=== PATIENT | female | born 1995 | race Caucasian/White ===

== ENCOUNTER 2016-08-29 09:31 | Emergency (ER) | payer MEDICAID ==
[2016-08-29 09:56] VITALS: BP 99/56
--- NOTE | 2016-08-29 10:57 | ER Document Report ---
[id number] Mode of Arrival: Ambulatory Information source: Patient Notes: 20-year-old female presents with complaints of a sore throat of one day duration. Patient denies any fevers chills nausea vomiting or diarrhea Patient states she gets strep at least 3 times a year TRAVEL OUTSIDE OF THE [place].S[place] IN LAST 30 DAYS: No - HPI Onset: Yesterday Onset/Duration: Sudden Quality of pain: Sharp Severity: Mild Pain Level: 1 Associated symptoms: Sore throat Exacerbated by: Denies Relieved by: Denies Similar symptoms previously: Yes Recently seen / treated by doctor: Yes - Related Data Allergies/Adverse Reactions: No Known Allergies Allergy (Verified 08/29/16 09:52) Past Medical History - Social History Smoking Status: Never Smoker Cigarette use (# per day): No Chew tobacco use (# tins/day): No Smoking Education Provided: No Frequency of alcohol use: None Drug Abuse: None Family History: Reviewed & Not Pertinent Patient has suicidal ideation: No Patient has homicidal ideation: No Renal/ Medical History: Reports: Hx Ovarian Cysts Past Surgical History: Reports: Hx Oral Surgery - ear surg x3, wisdom teeth - Immunizations Hx Diphtheria, Pertussis, Tetanus Vaccination: Yes Review of Systems - Review of Systems Notes: REVIEW OF SYSTEMS: CONSTITUTIONAL : Denies fever, chills, or sweats. Denies recent illness. EENT: Admits to sore throat CARDIOVASCULAR: Denies chest pain. Denies palpitations or racing or irregular heart beat. Denies ankle edema. RESPIRATORY: Denies cough, cold, or chest congestion. Denies shortness of breath, difficulty breathing, or wheezing. GASTROINTESTINAL: Denies abdominal pain or distention. Denies nausea, vomiting , or diarrhea. Denies blood in vomitus, stools, or per rectum. Denies black, tarry stools. Denies constipation. GENITOURINARY: Denies difficulty urinating, painful urination, burning, frequency, blood in urine, or discharge. FEMALE GENITOURINARY: Denies vaginal bleeding, heavy or abnormal periods, irregular periods. Denies vaginal discharge or odor. MUSCULOSKELETAL: Denies back or neck pain or stiffness. Denies joint pain or swelling. SKIN: Denies rash, lesions or sores. HEMATOLOGIC : Denies easy bruising or bleeding. LYMPHATIC: Denies swollen, enlarged glands. NEUROLOGICAL: Denies confusion or altered mental status. Denies passing out or loss of consciousness. Denies dizziness or lightheadedness. Denies headache. Denies weakness or paralysis or loss of use of either side. Denies problems with gait or speech. Denies sensory loss, numbness, or tingling. Denies seizures. PSYCHIATRIC: Denies anxiety or stress. Denies depression, suicidal ideation, or homicidal ideation. ALL OTHER SYSTEMS REVIEWED AND NEGATIVE. Dictation was performed using [employer] voice recognition software PHYSICAL EXAMINATION: GENERAL: Well-appearing, well-nourished and in no acute distress. HEAD: Atraumatic, normocephalic. EYES: Pupils equal round and reactive to light, extraocular movements intact, conjunctiva are normal. ENT: Right tonsil +1 with ulcers left tonsil +1 with erythema NECK: Normal range of motion, supple without lymphadenopathy LUNGS: Breath sounds clear to auscultation bilaterally and equal. No wheezes rales or rhonchi. HEART: Regular rate and rhythm without murmurs ABDOMEN: Soft, nontender, nondistended abdomen. No guarding, no rebound. No masses appreciated. Female : deferred Musculoskeletal: Normal range of motion, no pitting or edema. No cyanosis. NEUROLOGICAL: Cranial nerves grossly intact. Normal speech, normal gait. Normal sensory, motor exams PSYCH: Normal mood, normal affect. SKIN: Warm, Dry, normal turgor, no rashes or lesions noted. Physical Exam - Vital signs Vitals: Temp Pulse Resp BP 97.9 F 116 H 14 99/56 L 08/29/16 09:51 08/29/16 09:51 08/29/16 09:51 08/29/16 09:51 Course - Re-evaluation Re-evalutation: 08/29/16 15:22 Given the patient's airways patent she is otherwise stable for discharge. Rapid strep was negative. Patient has been given a sheet with ENT follow-up at [facility] for further evaluation and care After performing a Medical Screening Examination, I estimate there is LOW risk for CENTRAL CORD SYNDROME, EPIDURAL MASS LESION, SEVERE SPINAL STENOSIS, ARTERIAL DISSECTION, MENINGITIS, or ACUTE CORONARY SYNDROME, thus I consider the discharge disposition reasonable. The patient and I have discussed the diagnosis and risks, and we agree with discharging home to follow-up on an outpatient basis with the understanding that symptoms and presentations can change. We also discussed returning to the Emergency Department immediately if new or worsening symptoms occur. We have discussed the symptoms which are most concerning (e.g., saddle anesthesia, urinary or bowel incontinence or retention , changing or worsening pain) that necessitate immediate return. - Vital Signs Vital signs: Temp Pulse Resp BP Pulse Ox 97.9 F 116 H 16 99/56 L 08/29/16 09:51 08/29/16 09:51 08/29/16 10:06 08/29/16 09:51 Discharge - Discharge Clinical Impression: Sore throat Condition: Stable Disposition: HOME, SELF-CARE Instructions: Sore Throat ([facility]) Additional Instructions: Follow up with your physician tomorrow for further care or return to the ED IMMEDIATELY if symptoms worsen or new concerns occur
== END 2016-08-29 11:36 | disposition home or self-care (01) ==
LOC: ER 09:31
DX: J02.9 Acute pharyngitis, unspecified (principal)
CPT/HCPCS: 87070; 87880; 99283

== ENCOUNTER 2016-10-22 01:26 | Emergency (ER) | payer MEDICAID ==
[2016-10-22 01:33] VITALS: BP 116/62
[2016-10-22] MEDS ORDERED: DIAZEPAM INJ 10 MG/2 ML DISP.SYRIN IM ONE (02:34)
--- NOTE | 2016-10-22 02:47 | ER Document Report ---
ED Neck/Back Problem - General Chief Complaint: Neck Pain < 24hrs old Stated Complaint: NECK PAIN Time seen by provider: 02:45 Mode of Arrival: Ambulatory Information source: Patient TRAVEL OUTSIDE OF THE [place].S. IN LAST 30 DAYS: No - HPI Patient complains to provider of: Pain, Neck Onset: Other - Saturday Where: Home Onset: Gradual Timing: Worse Quality of pain: Achy Severity: Moderate Pain Level: 4 Recent injury: No Exacerbated by: Movement of neck Relieved by: Nothing Similar symptoms previously: No Recently seen / treated by doctor: Yes Notes: Patient is a 20-year-old female who is approximately 25 weeks presents to the emergency room complaining of neck pain that's been going on for the past 2-3 days, states she woke up Saturday morning with some tension in her neck, symptoms have worsened since then, her spouse attempted to massage her neck but that seemed to make her symptoms worse, she was tried taking Tylenol as well as Vistaril at home which has not helped either, she states it feels like a pulled muscle, she denies any injury or trauma, no fevers, no nausea or vomiting - Related Data Allergies/Adverse Reactions: No Known Allergies Allergy (Verified 10/22/16 01:31) Past Medical History - General Information source: Patient - Social History Smoking Status: Never Smoker Chew tobacco use (# tins/day): No Frequency of alcohol use: None Drug Abuse: None Family History: Reviewed & Not Pertinent Patient has suicidal ideation: No Patient has homicidal ideation: No Renal/ Medical History: Reports: Hx Ovarian Cysts. Denies: Hx Peritoneal Dialysis Past Surgical History: Reports: Hx Oral Surgery - ear surg x3, wisdom teeth - Immunizations Hx Diphtheria, Pertussis, Tetanus Vaccination: Yes Review of Systems - Review of Systems Constitutional: No symptoms reported EENT: No symptoms reported Cardiovascular: No symptoms reported Respiratory: No symptoms reported Gastrointestinal: No symptoms reported Genitourinary: No symptoms reported Female Genitourinary: No symptoms reported Musculoskeletal: Neck pain Skin: No symptoms reported Hematologic/Lymphatic: No symptoms reported Neurological/Psychological: No symptoms reported -: Yes All other systems reviewed and negative Physical Exam - Vital signs Vitals: Temp Pulse Resp BP Pulse Ox 97.5 F 95 16 116/62 98 10/22/16 01:29 10/22/16 01:29 10/22/16 01:29 10/22/16 01:10/22/16 01:29 Interpretation: Normal - General General appearance: Appears well, Alert - HEENT Head: Normocephalic, Atraumatic Eyes: Normal Conjunctiva: Normal Extraocular movements intact: Yes Eyelashes: Normal Pupils: PERRL Neck: Other - Bilateral sternocleidomastoids are tight, tense, tender to palpate , there is limited range of motion of the cervical spine, there is no midline tenderness, no step-off or deformity - Respiratory Respiratory status: No respiratory distress Chest status: Nontender Breath sounds: Normal Chest palpation: Normal - Cardiovascular Rhythm: Regular Heart sounds: Normal auscultation Murmur: No - Abdominal Inspection: Normal Distension: No distension Bowel sounds: Normal Tenderness: Nontender Organomegaly: No organomegaly - Back Back: Normal, Nontender - Extremities General upper extremity: Normal inspection, Nontender, Normal color, Normal ROM , Normal temperature General lower extremity: Normal inspection, Nontender, Normal color, Normal ROM , Normal temperature, Normal weight bearing. No: Perlita's sign - Neurological Neuro grossly intact: Yes Cognition: Normal Orientation: AAOx4 Gloria Coma Scale Eye Opening: Spontaneous Gloria Coma Scale Verbal: Oriented Gloria Coma Scale Motor: Obeys Commands Ocate Coma Scale Total: 15 Speech: Normal Motor strength normal: LUE, RUE, LLE, RLE Sensory: Normal - Psychological Associated symptoms: Normal affect, Normal mood - Skin Skin Temperature: Warm Skin Moisture: Dry Skin Color: Normal Course - Re-evaluation Re-evalutation: 10/22/16 05:39 Patient symptoms consistent with cervical muscle strain, she was given several prescriptions for medications for treatment of this, advised to follow-up with her [employer] or return if symptoms worsen, patient acknowledges understanding and agreement with this plan - Vital Signs Vital signs: Temp Pulse Resp BP Pulse Ox 97.5 F 95 16 116/62 98 10/22/16 01:29 10/22/16 01:29 10/22/16 01:29 10/22/16 01:29 10/22/16 01:29 Discharge - Discharge Clinical Impression: Cervical strain, acute Qualifiers: Encounter type: initial encounter Qualified Code(s): S16.1XXA - Strain of muscle, fascia and tendon at neck level, initial encounter Condition: Stable Disposition: HOME, SELF-CARE Instructions: Soft Cervical Collar ([facility]), Neck Injury (Cervical Strain) ([facility]) Additional Instructions: Follow up with your primary care provider in 2-3 days. Warm compresses and gentle massage with gentle stretching. Return to the ER immediately if symptoms worsen or any additional concerns. Prescriptions: Diazepam [Valium 5 mg Tablet] 5 mg PO QIDP PRN #15 tablet PRN Reason: Hydrocodone/Acetaminophen [Hydrocodon-Acetaminophen 5-325] 1 each PO Q6 #20 tablet
[2016-10-22] MEDS ORDERED: HYDROCODONE/ACETAMINOPHEN 5-325 MG 6 TAB/DSPK PO PRN (03:16)
== END 2016-10-22 03:26 | disposition home or self-care (01) ==
LOC: ER 01:26
DX: S16.1XXA Strain of muscle, fascia and tendon at neck level, initial encounter (principal); M54.2 Cervicalgia; Z3A.25 25 weeks gestation of pregnancy; X58.XXXA Exposure to other specified factors, initial encounter
CPT/HCPCS: 99283; 96372; J3360

== ENCOUNTER 2016-11-01 13:56 | Emergency (ER) | payer MEDICAID ==
--- NOTE | 2016-11-01 14:18 | ER Document Report ---
ED Medical Screen (RME) - General Stated Complaint: URINARY PROBLEM Notes: LMP: Apr 30, 2017, due date February 05 P/w "bump on pubic bone" that she noticed last evening. also admit to hematuria that started this am Admits to fleeting pelvic pain on the right side, lasting less then 5 seconds, stabbing. Has had a US to confirm IUP I have greeted and performed a rapid initial assessment of this patient. A comprehensive ED assessment and evaluation of the patient, analysis of test results and completion of the medical decision making process will be conducted by additional ED providers. TRAVEL OUTSIDE OF THE [place].S. IN LAST 30 DAYS: No - Related Data Allergies/Adverse Reactions: No Known Allergies Allergy (Verified 11/01/16 14:14) Past Medical History Renal/ Medical History: Reports: Hx Ovarian Cysts. Denies: Hx Peritoneal Dialysis Past Surgical History: Reports: Hx Oral Surgery - ear surg x3, wisdom teeth - Immunizations Hx Diphtheria, Pertussis, Tetanus Vaccination: Yes Physical Exam - Vital signs Vitals: Temp Pulse Resp BP Pulse Ox 98.2 F 102 H 17 120/71 99 11/01/16 14:13 11/01/16 14:13 11/01/16 14:13 11/01/16 14:13 11/01/16 14:13 Course - Vital Signs Vital signs: Temp Pulse Resp BP Pulse Ox 98.2 F 102 H 17 120/71 99 11/01/16 14:13 11/01/16 14:13 11/01/16 14:13 11/01/16 14:13 11/01/16 14:13
[2016-11-01 14:57] LABS: AMORPHOUS SEDIMENT,URINE 1+ /HPF; APPEARANCE,URINE TURBID; BILIRUBIN,URINE NEGATIVE (NEGATIVE); GLUCOSE, URINE NEGATIVE (NEGATIVE); KETONES,URINE NEGATIVE (NEGATIVE); LEUKOCYTE ESTERASE,URINE SMALL (NEGATIVE); NITRITE,URINE NEGATIVE (NEGATIVE); PROTEIN,URINE NEGATIVE (NEGATIVE); UROBILINOGEN,URINE NEGATIVE mg/dL (<2.0)
--- NOTE | 2016-11-01 15:25 | ER Document Report ---
ED General - General Chief Complaint: Urinary Problem Stated Complaint: URINARY PROBLEM Mode of Arrival: Ambulatory Information source: Patient Notes: Patient presents to the emergency department with complaints of noting blood when she voided today. She also reports she has a bump on her pelvic area that she noted last night. She reports she shaved herself several days ago. She denies other symptoms like chest pain, fever vomiting diarrhea. Patient is approximately 26 weeks . She denies abdominal pain. She denies pain with void, denies vaginal bleeding. She denies vaginal discharge. TRAVEL OUTSIDE OF THE [place] IN LAST 30 DAYS: No - HPI Onset: This morning Onset/Duration: Sudden Quality of pain: Other - sore Severity: Severe Pain Level: 4 - pelvic bump Associated symptoms: None Exacerbated by: Denies Relieved by: Denies Similar symptoms previously: No Recently seen / treated by doctor: No - Related Data Allergies/Adverse Reactions: No Known Allergies Allergy (Verified 11/01/16 14:14) Past Medical History - General Information source: Patient Last Menstrual Period: 26 weeks - Social History Smoking Status: Never Smoker Chew tobacco use (# tins/day): No Frequency of alcohol use: None Drug Abuse: None Occupation: [employer] Family History: Reviewed & Not Pertinent Patient has suicidal ideation: No Patient has homicidal ideation: No Renal/ Medical History: Reports: Hx Ovarian Cysts. Denies: Hx Peritoneal Dialysis Past Surgical History: Reports: Hx Oral Surgery - ear surg x3, wisdom teeth - Immunizations Hx Diphtheria, Pertussis, Tetanus Vaccination: Yes Review of Systems - Review of Systems Notes: Review HPI for review of systems., All other systems negative Physical Exam - Vital signs Vitals: Temp Pulse Resp BP Pulse Ox 98.2 F 102 H 17 120/71 99 11/01/16 14:13 11/01/16 14:13 11/01/16 14:13 11/01/16 14:13 11/01/16 14:13 - Notes Notes: PHYSICAL EXAMINATION: GENERAL: Well-appearing and in no acute distress nontoxic looking, smiles easily HEAD: Atraumatic, normocephalic. EYES: Pupils equal round extraocular movements intact, sclera anicteric, conjunctiva are normal. ENT: nares patent, . Moist mucous membranes. NECK: Normal range of motion, supple without lymphadenopathy LUNGS: CTAB and equal. No wheezes rales or rhonchi. HEART: Regular rate and rhythm without murmurs ABDOMEN: gravid female, Soft, no tenderness. No guarding, no rebound EXTREMITIES: Normal range of motion, no pitting edema. No cyanosis. NEUROLOGICAL: Cranial nerves grossly intact. Normal sensory/motor . PSYCH: Normal mood, normal affect. SKIN: Warm, Dry, normal turgor, no rashes or lesions noted - Genitourinary External exam: Normal Female anatomy: 1 - small erythemic soft swelling, no pustule, no induration, no open wounds Course - Re-evaluation Re-evalutation: 11/01/16 16:40 Patient was instructed on care of folliculitis with Bactroban and warm packs. Patient was also instructed on importance of follow-up with her [employer] for urine recheck next week. She verbalized understanding. - Vital Signs Vital signs: Temp Pulse Resp BP Pulse Ox 98.2 F 102 H 17 120/71 99 11/01/16 14:13 11/01/16 14:13 11/01/16 14:13 11/01/16 14:13 11/01/16 14:13 - Laboratory Laboratory results interpreted by me: 11/01/16 11/01/16 14:25 14:25 Beta HCG, Quant 3964.60 H Urine Blood SMALL H Ur Leukocyte Esterase SMALL H Discharge - Discharge Clinical Impression: Folliculitis Qualifiers: Weeks of gestation: less than 8 weeks Qualified Code(s): Z3A.01 - Less than 8 weeks gestation of UTI (urinary tract infection) Qualifiers: Urinary tract infection type: site unspecified Hematuria presence: with hematuria Qualified Code(s): N39.0 - Urinary tract infection, site not specified Condition: Stable Disposition: HOME, SELF-CARE Instructions: Cephalexin ([facility]), Urinary Tract Infection ([facility]), Folliculitis ( [facility]), Bactroban Ointment ([facility]) Additional Instructions: *You have been evaluated for hematuria, UTI folliculitis *Apply warm packs to the Monitor the site for increasing swelling, redness, pustule, apply bactroban to the area twice a day *Take medication as prescribed *Push fluids *Follow up with your primary care provider within one week for recheck *Plan urine recheck in one week *Return to ED for worsening condition, changes, needs Prescriptions: Cephalexin Monohydrate [Keflex 250 Mg Capsule] 250 mg PO QID #20 capsule Forms: Return to Work Referrals: CAROLEE STRONG MD [Primary Care Provider] - Follow up in 1 week
[2016-11-01] MEDS ORDERED: MUPIROCIN 2% OINTMENT 22 GM TP ONE (16:29)
[2016-11-01 16:53] VITALS: BP 117/68
== END 2016-11-01 16:58 | disposition home or self-care (01) ==
LOC: ER 13:56
DX: N39.0 Urinary tract infection, site not specified (principal); R39.198 Other difficulties with micturition; Z3A.26 26 weeks gestation of pregnancy
CPT/HCPCS: 99283; 36415; 87086; 84702; 81001; J3490

== ENCOUNTER 2016-12-27 12:56 | Emergency (ER) | payer MEDICAID ==
[2016-12-27] MEDS ORDERED: HYDROCODONE/ACETAMINOPHEN 5-325 MG TABLET PO ONE (13:50)
--- NOTE | 2016-12-27 14:32 | ER Document Report ---
HPI - HPI Patient complains to provider of: twisted left ankle and fell in a ditch Onset: Just prior to arrival Onset/Duration: Sudden Quality of pain: Throbbing Pain Level: 5 Context: 21-year-old 34 week female was going to check the mail and twisted her left ankle causing her to fall on a ditch. She has mild pain to her right distal toe and swelling and pain to the lateral malleolus. She did not fall on her belly. She has no abdominal pain cramping or bleeding. Associated Symptoms: None Exacerbated by: Walking Relieved by: Denies Similar symptoms previously: No Recently seen / treated by doctor: No - ROS ROS below otherwise negative: Yes Systems Reviewed and Negative: Yes All other systems reviewed and negative - CARDIOVASCULAR Cardiovascular: DENIES: Chest pain - REPRODUCTIVE Reproductive: REPORTS: : - DERM Skin Color: Normal, Ecchymosis Past Medical History - General Information source: Patient - Social History Smoking Status: Never Smoker Chew tobacco use (# tins/day): No Frequency of alcohol use: None Drug Abuse: None Lives with: Spouse/Significant other Family History: Reviewed & Not Pertinent Patient has suicidal ideation: No Patient has homicidal ideation: No - Medical History Medical History: Negative Renal/ Medical History: Reports: Hx Ovarian Cysts. Denies: Hx Peritoneal Dialysis Past Surgical History: Reports: Hx Oral Surgery - ear surg x3, wisdom teeth - Immunizations Hx Diphtheria, Pertussis, Tetanus Vaccination: Yes Vertical Provider Document - CONSTITUTIONAL Exam Limitations: No Limitations - INFECTION CONTROL TRAVEL OUTSIDE OF THE [place] IN LAST 30 DAYS: No - NECK Neck: Supple - RESPIRATORY Respiratory: Breath Sounds Normal, No Respiratory Distress O2 Sat by Pulse Oximetry: 96 - CARDIOVASCULAR Cardiovascular: Regular Rate, Regular Rhythm - GI/ABDOMEN Gastrointestinal: Abdomen Soft Notes: gravid uterus FHT 143 - MUSCULOSKELETAL/EXTREMETIES Musculoskeletal/Extremeties: Tender - swelling left lateral malleolus, Edema, Eccymosis Notes: no bruising or swelling right 5th digit - NEURO Level of Consciousness: Awake, Alert, Appropriate Motor/Sensory: No Motor Deficit, No Sensory Deficit Notes: 2+ dorsal left foot, FROM right 5th toe. - DERM Integumentary: Warm, Dry Course - Re-evaluation Re-evalutation: 12/27/16 14:45 Distal left fibular fracture without dislocation. No fracture of the right fifth toe - Vital Signs Vital signs: Temp Pulse Resp BP Pulse Ox 97.5 F 124 H 20 107/77 96 12/27/16 13:01 12/27/16 13:01 12/27/16 13:01 12/27/16 13:01 12/27/16 13:01 Procedures - Immobilization Left Ankle Time completed: 14:45 Pre-Proc Neuro Vasc Exam: Normal Immobilizer type: Posterior ankle Performed by: PCT Post-Proc Neuro Vasc Exam: Normal Alignment checked and good: Yes Discharge - Discharge Clinical Impression: Fracture of distal end of left fibula Qualifiers: Encounter type: initial encounter Fracture type: closed Fracture morphology: other fracture Qualified Code(s): S82.832A - Other fracture of upper and lower end of left fibula, initial encounter for closed fracture Condition: Good Disposition: HOME, SELF-CARE Instructions: Use of Crutches ([facility]), Ice & Elevation ([facility]), Oral Narcotic Medication ([facility]), Splint Pending Casting ([facility]), Temporary Splint ([facility]) Additional Instructions: elevate, ice pain mediation call and scheudle appointment with the orthopedist doctor for saturday or early next week keep splint on, use curtches to er if any concerns go to labor and delivery Please complete the patient satisfaction survey if you get one, and return it.. If you do not receive a survey, then you can go to the [facility] website, [email or web address] and place your comments about your very good care. Thank you very much. It was a pleasure being your medical provider today. Prescriptions: Hydrocodone Bit/Acetaminophen [Hydrocodon-Acetaminophen 5-325] 1 each PO Q4HP PRN #15 tablet PRN Reason:
[2016-12-27 14:59] VITALS: BP 124/80
== END 2016-12-27 15:00 | disposition home or self-care (01) ==
LOC: ER 12:56
PROC: 2W3TX1Z Immobilization of Left Foot using Splint (ICD-10-PCS; principal; 2016-12-27)
DX: S82.832A Other fracture of upper and lower end of left fibula, initial encounter for closed fracture (principal); M25.572 Pain in left ankle and joints of left foot; W19.XXXA Unspecified fall, initial encounter
CPT/HCPCS: 99283

== ENCOUNTER 2017-01-27 11:01 | Outpatient (CLI) | payer MEDICAID ==
[2017-01-27 12:29] LABS: APPEARANCE,URINE SLIGHTLY-CLOUDY; BILIRUBIN,URINE NEGATIVE (NEGATIVE); GLUCOSE, URINE NEGATIVE (NEGATIVE); KETONES,URINE NEGATIVE (NEGATIVE); LEUKOCYTE ESTERASE,URINE MODERATE (NEGATIVE); NITRITE,URINE NEGATIVE (NEGATIVE); PROTEIN,URINE NEGATIVE (NEGATIVE); URINE SPECIFIC GRAVITY 1.021; UROBILINOGEN,URINE NEGATIVE mg/dL (<2.0)
[2017-01-27 12:51] LABS: URINE BARBITURATES SCREEN NEGATIVE; URINE METHADONE SCREEN NEGATIVE; URINE OPIATES LOW NEGATIVE; URINE PHENCYCLIDINE SCREEN NEGATIVE
--- NOTE | 2017-01-27 12:56 | Non Stress Test Report ---
Non Stress Test Datetime Report Generated by CPN: 01/27/2017 12:56 DEMOGRAPHIC EGA NST: 38.6 INDICATION Indication for Study: Ordered by Provider MONITORING Monitor Explained: Monitor Explained; Test Explained; Patient Verbalized Understanding Time on Monitor: 01/27/2017 11:26 NST INTERVENTIONS NST Interventions: PO Hydration; Reposition Patient Physician Notified NST: Dr Sanchez BABY A: [id number] BABY A Movement : Present Contraction Frequency : denies FHR Baseline : 155 Accelerations : 15X15 Decelerations : None Variability : Moderate 6-25bpm NST Review: Meets Criteria for Reactive NST NST Review and Verified By : B Baijob RN NST Results: Reactive NST REPORT Report Trigger: Send Report
== END 2017-01-27 12:59 | disposition home or self-care (01) ==
LOC: LC 11:01
PROVIDERS: ATTEND Obstetrics & Gynecology
PROC: 4A1HXCZ Monitoring of Products of Conception, Cardiac Rate, External Approach (ICD-10-PCS; principal; 2017-01-27)
DX: O99.283 Endocrine, nutritional and metabolic diseases complicating pregnancy, third trimester (principal); E86.0 Dehydration; Z3A.38 38 weeks gestation of pregnancy
CPT/HCPCS: 59025; 80307; 81005; 87210

== ENCOUNTER 2017-01-30 12:22 | Outpatient (CLI) | payer MEDICAID ==
[2017-01-30 13:06] LABS: APPEARANCE,URINE SLIGHTLY-CLOUDY; BILIRUBIN,URINE NEGATIVE (NEGATIVE); GLUCOSE, URINE NEGATIVE (NEGATIVE); KETONES,URINE NEGATIVE (NEGATIVE); LEUKOCYTE ESTERASE,URINE MODERATE (NEGATIVE); NITRITE,URINE NEGATIVE (NEGATIVE); PROTEIN,URINE NEGATIVE (NEGATIVE); URINE SPECIFIC GRAVITY 1.003; UROBILINOGEN,URINE NEGATIVE mg/dL (<2.0)
[2017-01-30 13:27] LABS: URINE BARBITURATES SCREEN NEGATIVE; URINE METHADONE SCREEN NEGATIVE; URINE OPIATES LOW NEGATIVE; URINE PHENCYCLIDINE SCREEN NEGATIVE
--- NOTE | 2017-01-30 15:25 | Non Stress Test Report ---
Non Stress Test Datetime Report Generated by CPN: 01/30/2017 15:25 DEMOGRAPHIC EGA NST: 39.1 INDICATION Indication for Study: Other Indication for Study (NST) Other: LABOR CHECK- BACK PAIN MONITORING Monitor Explained: Monitor Explained; Test Explained; Patient Verbalized Understanding Time on Monitor: 01/30/2017 12:53 Time off Monitor: 01/30/2017 14:02 NST Duration: 69 NST INTERVENTIONS NST Interventions: PO Hydration; Reposition Patient Physician Notified NST: DR NEILSEN BABY A: [id number] BABY A Movement : Present Contraction Frequency : IRREG FHR Baseline : 135 Accelerations : 15X15 Variability : Moderate 6-25bpm NST Review: Meets Criteria for Reactive NST NST Review and Verified By : ABBY Fields Results: Reactive NST REPORT Report Trigger: Send Report
[2017-01-30 16:22] LABS: CHLAM PCR NOT DETECTED (NOT DETECT)
== END 2017-01-30 14:35 | disposition home or self-care (01) ==
LOC: LC 12:22
PROVIDERS: ATTEND Specialist
PROC: 4A1HXCZ Monitoring of Products of Conception, Cardiac Rate, External Approach (ICD-10-PCS; principal; 2017-01-30)
DX: O99.89 Other specified diseases and conditions complicating pregnancy, childbirth and the puerperium (principal); M54.9 Dorsalgia, unspecified; Z3A.39 39 weeks gestation of pregnancy
CPT/HCPCS: 59025; 80307; 81005; 87210; 87491; 87591

== ENCOUNTER 2017-01-30 15:35 | Inpatient (IN) | payer MEDICAID ==
[2017-01-30] MEDS ORDERED: RINGERS SOLUTION,LACTATED 1,000 ML IV ONE (16:30)
[2017-01-30 17:37] LABS: ABSOLUTE EOSINOPHILS # (AUTO) 0.1 10^3/uL (0.0-0.6); ABSOLUTE LYMPHOCYTES (AUTO) 2.3 10^3/uL (0.5-4.7); ABSOLUTE MONOCYTES (AUTO) 0.9 10^3/uL (0.1-1.4); BASOPHILS % (AUTO) 0.1 % (0-2); HEMATOCRIT 31.6 % (36.0-47.0); HEMOGLOBIN 10.4 g/dL (12.0-15.5); HGB HCT DIFFERENCE -0.4; LYMPHOCYTES % (AUTO) 18.4 % (13-45); MEAN CORPUSCULAR HEMOGLOBIN 26.5 pg (27.0-33.4); MEAN CORPUSCULAR HGB CONC 32.9 g/dL (32.0-36.0); MEAN CORPUSCULAR VOLUME 81 fl (80-97); MONOCYTES % (AUTO) 7.1 % (3-13); RED BLOOD COUNT 3.93 10^6/uL (3.72-5.28); RED CELL DISTRIBUTION WIDTH 15.1 % (11.5-14.0); SEGMENTED NEUTROPHILS % (AUTO) 73.4 % (42-78); WHITE BLOOD COUNT 12.3 10^3/uL (4.0-10.5)
[2017-01-30] MEDS ORDERED: OXYTOCIN/NORMAL SALINE 20 UNIT/1,000 ML RTUINJ ONE ×2 (20:49→22:36)
[2017-01-30] MEDS ORDERED: MISOPROSTOL 0.2 MG TABLET ONE (22:35)
[2017-01-30] MEDS ORDERED: EPHEDRINE SULFATE INJ 50 MG/1 ML AMPULE ONE (22:35)
[2017-01-30] MEDS ORDERED: BUPIVACAINE HCL 0.25 % INJ/PF (2.5 MG/1 ML) 30 ML VIAL ONE (22:36)
[2017-01-30] MEDS ORDERED: EPHEDRINE SULFATE INJ 50 MG/1 ML AMPULE IV ONE (22:36)
[2017-01-30] MEDS ORDERED: FENTANYL/BUPIVACAINE/NS/PF 100 ML EPI PRN (22:36)
[2017-01-30] MEDS ORDERED: FENTANYL/BUPIVACAINE/NS/PF 200 MCG/100 ML RTUINJ EPI ONE (22:36)
[2017-01-30] MEDS ORDERED: BENZOIN/ALOE VERA/STORAX/TOLU TINCTURE 60 ML TP PRN (22:36)
[2017-01-30] MEDS ORDERED: BUPIVACAINE HCL 0.25 % INJ/PF (2.5 MG/1 ML) 30 ML VIAL INFIL ONE (22:36)
[2017-01-30] MEDS ORDERED: LIDOCAINE 1% INJ-PF (10 MG/ML) 30 ML SDV ONE (22:36)
[2017-01-30] MEDS ORDERED: DIPHENHYDRAMINE HCL 50 MG/ML VIAL IV PRN (22:36)
--- NOTE | 2017-01-31 03:17 | L&D Progress Notes ---
PROGRESS NOTES Datetime Report Generated by CPN: 01/31/2017 03:17 PROGRESS NOTE Impression: Normal Progression of Labor; Premature Rupture of Membranes Plan: Augmentation Comment: Pt comfortable with epidural now on pit at 6 mu. Cont augmentation. VAGINAL EXAM Dilatation: 6 Dilatation: 4 Effacement: 100 Effacement: 70 Station: 0 Station: -3 Contractions: irregular MEMBRANES Membranes: Ruptured Amniotic Fluid Color: Bloody FETUS A FHR Category: Category I Estimated Weight (gm): 3400 Presentation: Vertex SIGNATURE SIGNATURE: [id number] SIGNATURE: [id number] SIGNATURE: [id number] Signature: with User ID: [email or web address]
[2017-01-31] MEDS ORDERED: ONDANSETRON HCL INJ/PF 4 MG/2 ML SDV ONE ×2 (06:24→15:39)
--- NOTE | 2017-01-31 06:25 | L&D Progress Notes ---
PROGRESS NOTES Datetime Report Generated by CPN: 01/31/2017 06:24 PROGRESS NOTE Impression: Normal Progression of Labor Plan: Continue Present Management Comment: pit at 10 mu..cont induction for prom VAGINAL EXAM Dilatation: 9 Effacement: 100 Station: 0 FETUS A FHR Category: Category I FETUS C SIGNATURE: [id number];[id number] Signature: with User ID: [email or web address]
[2017-01-31] MEDS ORDERED: FENTANYL/BUPIVACAINE/NS/PF 200 MCG/100 ML RTUINJ EPI ONE (07:39)
--- NOTE | 2017-01-31 08:17 | L&D Progress Notes ---
PROGRESS NOTES Datetime Report Generated by CPN: 01/31/2017 08:17 PROGRESS NOTE Impression: Normal Progression of Labor; Reassuring Heart Rate; Rupture of Membranes Plan: Continue Present Management; Induction Informed Consent Obtained: Vaginal Delivery Vital Signs : Reviewed; Within Normal Limits Comment: Cat 1 strip, comfortable with epidural, anticipate , strip reviewed FETUS A FHR - Baseline: 130 Monitoring: External US Variability: Moderate 6-25bpm Decelerations: None : 39.1 FETUS C SIGNATURE: [id number] Assignment: Jakub Kamara DO Signature: with User ID: [email or web address] : with User ID: [email or web address]
--- NOTE | 2017-01-31 11:12 | L&D Progress Notes ---
PROGRESS NOTES Datetime Report Generated by CPN: 01/31/2017 11:12 PROGRESS NOTE Impression: Reassuring Heart Rate Plan: Continue Present Management; Induction Vital Signs : Reviewed; Within Normal Limits Comment: ant lip, sitting up in bed, POC reviewed. Cat 1 strip FETUS A FHR - Baseline: 140 Variability: Moderate 6-25bpm Decelerations: None FETUS C SIGNATURE: [id number];[id number] Assignment: Jakub Kamara DO Signature: with User ID: Guerita : with User ID: [email or web address]
--- NOTE | 2017-01-31 12:21 | L&D Progress Notes ---
PROGRESS NOTES Datetime Report Generated by CPN: 01/31/2017 12:21 PROGRESS NOTE Comment: checked pt at 12:00, ant lip, + caput, will start pushing at 12:30 if lip reduced, Cat 1 strip FETUS C SIGNATURE: [id number];[id number] Assignment: Jakub Kamara DO Signature: with User ID: [email or web address] : with User ID: [email or web address]
[2017-01-31] MEDS ORDERED: ACETAMINOPHEN 325 MG TABLET ONE (12:22)
[2017-01-31] MEDS ORDERED: ACETAMINOPHEN 325 MG TABLET PO ONE (12:23)
--- NOTE | 2017-01-31 14:29 | L&D Progress Notes ---
PROGRESS NOTES Datetime Report Generated by CPN: 01/31/2017 14:29 PROGRESS NOTE Vital Signs : Reviewed; Within Normal Limits Comment: continues to push, took a 15 minute break to rest, going to stop epidural cause she does not feel urge to push, discussed with Dr. Kamara, agrees with POC, Cat 1 strip FETUS C SIGNATURE: [id number];[id number] Assignment: Jakub Kamara DO Signature: with User ID: [email or web address] : with User ID: [email or web address]
[2017-01-31] MEDS ORDERED: CEFAZOLIN 2 GM/D5W RTU 2 GM/50 ML RTUPB IV ONE (15:28)
[2017-01-31] MEDS ORDERED: CITRIC ACID/SODIUM CITRATE ORAL SOLN 15 ML UDCUP ONE (15:28)
[2017-01-31] MEDS ORDERED: FENTANYL CITRATE INJ/PF 100 MCG/2 ML AMPUL ONE (15:38)
[2017-01-31] MEDS ORDERED: OXYTOCIN 10 UNIT/ML VIAL ONE (15:38)
[2017-01-31] MEDS ORDERED: FENTANYL CITRATE INJ/PF 250 MCG/5 ML AMPULE ONE (15:39)
[2017-01-31] MEDS ORDERED: OXYTOCIN/NORMAL SALINE 20 UNIT/1,000 ML RTUINJ ONE (15:39)
[2017-01-31] MEDS ORDERED: MIDAZOLAM 2 MG/2 ML INJ ONE (15:39)
[2017-01-31] MEDS ORDERED: EPHEDRINE SULFATE INJ 50 MG/1 ML AMPULE ONE (15:39)
[2017-01-31] MEDS ORDERED: BUPIVACAINE HCL 0.5 % INJ/PF 30 ML SDV ONE (15:46)
[2017-01-31] MEDS ORDERED: METHYLERGONOVINE MALEATE INJ/PF 0.2 MG/1 ML AMPULE ONE (16:16)
[2017-01-31] MEDS ORDERED: ACETAMINOPHEN 325 MG TABLET PO PRN (17:50)
[2017-01-31] MEDS ORDERED: OXYCODONE-ACETAMINOPHEN 5-325 MG TABLET PO PRN (17:50)
[2017-01-31] MEDS ORDERED: PROMETHAZINE HCL INJ 25 MG/1 ML VIAL IM PRN (17:50)
[2017-01-31] MEDS ORDERED: SIMETHICONE 80 MG TAB.CHEW PO PRN (17:50)
[2017-01-31] MEDS ORDERED: OXYTOCIN/NORMAL SALINE 20 UNIT/1,000 ML RTUINJ INJ PRN (17:50)
[2017-01-31] MEDS ORDERED: MEASLES,MUMPS&RUBELLA VACC/PF 0.5 ML VIAL SUBCUT PRN (17:50)
[2017-01-31] MEDS ORDERED: DIPH/PERTUSS(ACELL)/TETANUS VAC/PF 0.5 ML SYR (>=10YO) IM PRN (17:50)
[2017-01-31] MEDS ORDERED: MEPERIDINE HCL/PF INJ 25 MG/1 ML DISP.SYRIN ONE (17:53)
[2017-01-31] MEDS: IBUPROFEN 800 MG TABLET PO SCH (18:45)
[2017-01-31] MEDS: DOCUSATE SODIUM 100 MG CAPSULE PO SCH (18:45)
[2017-01-31] MEDS ORDERED: DOCUSATE SODIUM 100 MG CAPSULE ONE (18:46)
[2017-01-31] MEDS ORDERED: IBUPROFEN 800 MG TABLET ONE (18:46)
[2017-01-31] MEDS ORDERED: HYDROMORPHONE HCL INJ/PF 2 MG/ML AMPULE ONE ×2 (18:47→18:50)
[2017-01-31] MEDS: HYDROMORPHONE HCL INJ/PF 2 MG/ML AMPULE IV PRN ×2 (18:48→22:18)
--- NOTE | 2017-01-31 19:07 | Admission Physical ---
Datetime Report Generated by CPN: 01/31/2017 19:07 CURRENT ADMISSION Hx Assessment: The History has been Reviewed and is Current Chief Complaint: Suspected Ruptured Membranes Indication for Induction: Not Applicable Admit Plan: Admit to Unit; Initiate Labor Augmentation Protocol ALLERGIES Medication Allergies: No Medication Allergies: No Known Allergies (01/30/2017) Medication Allergies: No Known Allergies (12/27/2016) Medication Allergies: No Known Allergies (11/01/2016) Latex: No Latex Allergies Food Allergies: N/A Environmental Allergies: N/A OBSTETRICAL HISTORY EDC: 02/05/2017 00:00 : 1 Para: 0 Term: 0 : 0 SAB: 0 IAB: 0 Ectopic: 0 Livin Cesareans: 0 VBACs: 0 Multiple Births: 0 Gestational Diabetes: No Rh Sensitization: No Incompetent Cervix: No HAYLEE: No Infertility: No ART Treatment: No Uterine Anomaly: No IUGR: No Hx Previous C/S: No Macrosomia: No Hx Loss/Stillborn: No PIH: No Hx : No Placenta Previa/Abruption: No Depression/PP Depression: No PTL/PROM: No Post Hemorrhage: No Current Procedures: Ultrasound Obstetrical History Comments: G1-Current SEE RECORDS Alcohol: No Marijuana : No Cocaine: No Other Illicit Drugs: No Cigarettes: Former Smoker. [id number] MEDICAL HISTORY Diabetes: No Blood Transfusion: No Pulmonary Disease (Asthma, TB): No Breast Disease: No Hypertension: No Medical Front Desk Specialist Surgery: No Heart Disease: No Hosp/Surgery: Yes Autoimmune Disorder: Yes Anesthetic Complications: No Kidney Disease: No Abnormal Pap Smear: No Neuro/Epilepsy: No Psychiatric Disorders: No Other Medical Diseases: No Hepatitis/Liver Disease: No Significant Family History: No Varicosities/Phlebitis: No Trauma/Violence : No Thyroid Dysfunction: No Medical History Comments: PSORIASIS EAR SURGERY 3 YRS AGO ovarian cysts INFECTIOUS HISTORY Gonorrhea: No Genital Herpes: No Chlamydia: Yes Tuberculosis: No Syphilis: No Hepatitis: No HIV/AIDS Exposure: No Rash or Viral Illness: No HPV: No Infectious History Comments: CHLAMYDIA-05/2016 PHYSICAL EXAM General: Normal HEENT: Normal Neurologic: Normal Thyroid: Deferred Heart: Normal Lungs: Normal Breast: Normal Back: Normal Abdomen: Normal Genitourinary Exam: Normal Extremities: Normal DTRs: Normal Pelvic Type: Adequate Vital Signs: Reviewed VAGINAL EXAM Dilatation: 9 Dilatation: 6 Dilatation: 4 Effacement: 100 Effacement: 100 Effacement: 70 Station: 0 Station: 0 Station: -3 Contraction Comments: irregular MEMBRANES Membranes: Ruptured Amniotic Fluid Color: Bloody FETUS A EGA: 39.1 Monitoring: External US FHR- Baseline: 150 Variability: Moderate 6-25bpm Accelerations: 15X15 Decelerations: None FHR Category: Category I Estimated Weight (gm): 3400 Presentation: Vertex Admit Comment: SROM at 1530, clear/blood tinged fluid See record for complete hx High weight gain, 55 lbs Polyhydramnios 24.96 on 01/11/17. Chlamydia jose l neg Admit to L _ D Pitocin for labor augmentation PLANS FOR LABOR AND DELIVERY Labor and Delivery: None Pain Management: Epidural Feeding Preference: Breast Benefit of Breast Feed Discussed: Yes Circumcision: Yes INFORMED CONSENT Informed Consent Obtained: Vaginal Delivery Assignment: Emily Klein MD Signature: with User ID: Vera : with User ID: Vera
--- NOTE | 2017-01-31 19:25 | Delivery Summary ---
Del Sum A-C Datetime Report Generated by CPN: 01/31/2017 19:25 DELIVERY PERSONNEL DELIVERY PERSONNEL: [id number];[id number];[id number];[id number] Delivery Doctor:: Jakub Kamara DO Anesthesiologist:: Abilio Alva MD Labor and Delivery Nurse:: Johnna Arevalo RN Neonatal Nurse Practitioner:: ELIDA Mcgowan Nursery Nurse:: Dbei Marx RN [place] Reporter/CLOTH PRINTER: ST Rakesh [place] Reporter/CLOTH PRINTER: Debi Sanford, VOLTAGE INSPECTOR MATERNAL INFORMATION Delivery Anesthesia: Epidural; Spinal Medications After Delivery: Pitocin Bolus-Please Comment; Pitocin Drip 20 Units/1000ml NSS Estimated Blood Loss (ml): 600 (Annotations: Data stored by [facility] on behalf of user) Maternal Complications: Maternal Fever LABOR SUMMARY EDC: 02/05/2017 00:00 No. Babies in Womb: 1 Attempted: No Labor Anesthesia: Epidural LABOR INFORMATION Reason for Induction: Not Applicable Onset of Labor: 01/30/2017 23:16 Complete Dilatation: 01/31/2017 12:43 Oxytocin: Augmentation Group B Beta Strep: NEGATIVE Antibiotics # of Doses: 0 Antibiotics Time of Last Dose: N/A Steroids Given: None Reason Steroids Not Administered: Not Applicable MEMBRANES Membranes Rupture Method: Spontaneous Rupture of Membranes: 01/30/2017 15:10 Length of Rupture (hr): 25.00 Amniotic Fluid Color: Clear Amniotic Fluid Amount: Copious Amniotic Fluid Odor: Normal STAGES OF LABOR Stage 1 hr: 13 Stage 1 min: 27 Stage 2 hr: 3 Stage 2 min: 27 Stage 3 hr: 0 Stage 3 min: 1 Total Time in Labor hr: 16 Total Time in Labor min: 55 VAGINAL DELIVERY Episiotomy: None Laceration Extension: N/A Laceration Type: None Sponge Count Correct: N/A Sharps Count Correct: N/A CSECTION DELIVERY Primary Indication: Failure of Descent CSection Urgency: Non-Scheduled CSection Incidence: Primary Labor: Labor Elective: Nonelective CSection Incision: Lower Uterine Transverse BABY A INFORMATION Infant Delivery Date/Time: 01/31/2017 16:10 Method of Delivery: Born in Route : No : N/A Forceps: N/A Vacuum Extraction: N/A Shoulder Dystocia : No PRESENTATION/POSITION BABY A Presentation: Cephalic Cephalic Presentation: Vertex Breech Presentation: N/A PLACENTA INFORMATION BABY A Placenta Delivery Time : 01/31/2017 16:11 Placenta Method of Delivery: Spontaneous Placenta Status: Delivered SCORES BABY A Heart Rate 1 min: >100 bpm Resp Effort 1 min: Good Cry Reflex Irritability 1 min: Cough or Sneeze or Pulls Away Muscle Tone 1 min: Active Motion Color 1 min: Body [place], Extremities Blue Resuscitation Effort 1 min: Tactile Stimulation SCORE 1 MIN: 9 Heart Rate 5 min: >100 bpm Resp Effort 5 min: Good Cry Reflex Irritability 5 min: Cough or Sneeze or Pulls Away Muscle Tone 5 min: Active Motion Color 5 min: Body [place], Extremities Blue Resuscitation Effort 5 min: Tactile Stimulation SCORE 5 MIN: 9 INFORMATION BABY A Gestational Age at Delivery: 39.2 Gestational Status: Full Term- 39- 40.6 Weeks Infant Outcome : Liveborn Condition : Stable Infant Sex: Male IDENTIFICATION BABY A Verification Date/Time: 01/31/2017 16:12 ID Band Number: [id number] Mother's Name Verified: Yes Infant RN Verifying Infant: RDorcas Arevalo, RN/ A. Francisco J, RN WEIGHT/LENGTH BABY A Infant Birthweight (gm): 3745 Weight (lb): 8 Weight (oz): 4 Length (in): 21.00 Infant Length (cm): 53.34 CORD INFORMATION BABY A No. Cord Vessels: 3 Nuchal Cord : N/A Cord Blood Taken: Yes-For Storage (Mom's Blood type +) Infant Suction: None ASSESSMENT BABY A Skin to Skin: Yes Skin to Skin Time (min): 30 BABY B INFORMATION : N/A
[2017-01-31] MEDS: OXYCODONE-ACETAMINOPHEN 5-325 MG TABLET PO PRN (20:15)
[2017-01-31] MEDS: RINGERS SOLUTION,LACTATED 1,000 ML IV PRN (20:23)
[2017-02-01] MEDS: IBUPROFEN 800 MG TABLET PO SCH ×5 (00:05→23:56)
[2017-02-01] MEDS: OXYCODONE-ACETAMINOPHEN 5-325 MG TABLET PO PRN ×3 (02:01→14:25)
[2017-02-01] MEDS: RINGERS SOLUTION,LACTATED 1,000 ML IV PRN (05:24)
[2017-02-01] MEDS: HYDROMORPHONE HCL INJ/PF 2 MG/ML AMPULE IV PRN (05:29)
[2017-02-01 06:39] LABS: HEMATOCRIT 28.4 % (36.0-47.0); HEMOGLOBIN 9.1 g/dL (12.0-15.5); HGB HCT DIFFERENCE -1.1; MEAN CORPUSCULAR HEMOGLOBIN 26.2 pg (27.0-33.4); MEAN CORPUSCULAR HGB CONC 31.9 g/dL (32.0-36.0); MEAN CORPUSCULAR VOLUME 82 fl (80-97); RED BLOOD COUNT 3.46 10^6/uL (3.72-5.28); RED CELL DISTRIBUTION WIDTH 15.6 % (11.5-14.0)
[2017-02-01] MEDS: PRENATAL VITAMIN W-O CA NO5/FE FUMARATE/FA CAPSULE PO SCH (09:46)
[2017-02-01] MEDS: DOCUSATE SODIUM 100 MG CAPSULE PO SCH ×2 (09:46→17:11)
--- NOTE | 2017-02-01 11:11 | PDOC PROGRESS REPORT ---
Subjective-OB Subjective: Post Delivery Day: 21 year old. Denies any needs at this time Physical Exam (OB) Vital Signs: Temp Pulse Resp BP Pulse Ox 97.6 F 97 15 108/49 L 100 02/01/17 07:39 02/01/17 07:39 02/01/17 07:39 02/01/17 07:39 02/01/17 07:39 Intake & Output 01/31/17 02/01/17 02/02/17 06:59 06:59 06:59 Weight 110 kg - Dressing Removed: No Incision: Dressing - Lochia Lochia Amount: Scant < 10 ml Lochia Color: Rubra/Red - Abdomen Description: Soft, Round Hernia Present: No Bowel Sounds: Normoactive Flatus Presence: Absent Stool: No Fundal Description: Firm, Midline Fundal Height: u/u - u/2 Objective-Diagnostic Laboratory: 02/01/17 06:19 02/01/17 06:19 WBC 16.0 H RBC 3.46 L Hgb 9.1 L Hct 28.4 L MCV 82 MCH 26.2 L MCHC 31.9 L RDW 15.6 H Plt Count 107 L
[2017-02-02] MEDS: OXYCODONE-ACETAMINOPHEN 5-325 MG TABLET PO PRN ×4 (01:54→20:54)
[2017-02-02] MEDS: IBUPROFEN 800 MG TABLET PO SCH ×4 (06:05→23:52)
[2017-02-02 07:52] LABS: HEMATOCRIT 27.1 % (36.0-47.0); HEMOGLOBIN 8.6 g/dL (12.0-15.5); HGB HCT DIFFERENCE -1.3; MEAN CORPUSCULAR HEMOGLOBIN 26.2 pg (27.0-33.4); MEAN CORPUSCULAR HGB CONC 31.6 g/dL (32.0-36.0); MEAN CORPUSCULAR VOLUME 83 fl (80-97); RED BLOOD COUNT 3.27 10^6/uL (3.72-5.28); RED CELL DISTRIBUTION WIDTH 15.3 % (11.5-14.0); WHITE BLOOD COUNT 17.4 10^3/uL (4.0-10.5)
[2017-02-02] MEDS: DOCUSATE SODIUM 100 MG CAPSULE PO SCH ×2 (09:52→17:17)
[2017-02-02] MEDS: PRENATAL VITAMIN W-O CA NO5/FE FUMARATE/FA CAPSULE PO SCH (09:52)
--- NOTE | 2017-02-02 11:14 | PDOC PROGRESS REPORT ---
Subjective-OB Subjective: Post Delivery Day: 21 year old. Denies any needs at this time Physical Exam (OB) Vital Signs: Temp Pulse Resp BP Pulse Ox 98.0 F 110 H 16 114/55 L 100 02/02/17 07:40 02/02/17 07:40 02/02/17 07:40 02/02/17 07:40 02/02/17 07:40 Intake & Output 02/01/17 02/02/17 02/03/17 06:59 06:59 06:59 Intake Total 900 Balance 900 - Dressing Removed: No Incision: Dressing Closure Type: op site - Lochia Lochia Amount: Small 10-25 ml Lochia Color: Rubra/Red - Abdomen Description: Soft, Round Hernia Present: No Bowel Sounds: Normoactive Flatus Presence: Present Stool: No Fundal Description: Firm, Midline Fundal Height: u/u - u/2 Objective-Diagnostic Laboratory: 02/02/17 07:25 02/02/17 07:25 WBC 17.4 H RBC 3.27 L Hgb 8.6 L Hct 27.1 L MCV 83 MCH 26.2 L MCHC 31.6 L RDW 15.3 H Plt Count 145 L
[2017-02-03] MEDS: OXYCODONE-ACETAMINOPHEN 5-325 MG TABLET PO PRN ×3 (01:05→09:53)
[2017-02-03] MEDS: IBUPROFEN 800 MG TABLET PO SCH ×3 (05:15→18:04)
[2017-02-03 08:03] LABS: ABSOLUTE EOSINOPHILS # (AUTO) 0.3 10^3/uL (0.0-0.6); ABSOLUTE LYMPHOCYTES (AUTO) 1.6 10^3/uL (0.5-4.7); ABSOLUTE MONOCYTES (AUTO) 0.8 10^3/uL (0.1-1.4); ABSOLUTE NEUT (AUTO) 10.8 10^3/uL (1.7-8.2); BASOPHILS % (AUTO) 0.2 % (0-2); EOSINOPHILS % (AUTO) 2.3 % (0-6); HEMATOCRIT 24.9 % (36.0-47.0); HGB HCT DIFFERENCE -1.2; LYMPHOCYTES % (AUTO) 11.8 % (13-45); MEAN CORPUSCULAR HEMOGLOBIN 25.9 pg (27.0-33.4); MEAN CORPUSCULAR HGB CONC 31.6 g/dL (32.0-36.0); MEAN CORPUSCULAR VOLUME 82 fl (80-97); MONOCYTES % (AUTO) 5.7 % (3-13); RED BLOOD COUNT 3.03 10^6/uL (3.72-5.28); RED CELL DISTRIBUTION WIDTH 15.9 % (11.5-14.0); WHITE BLOOD COUNT 13.5 10^3/uL (4.0-10.5)
[2017-02-03 08:49] LABS: HEMOGLOBIN 7.9 g/dL (12.0-15.5)
[2017-02-03] MEDS: DOCUSATE SODIUM 100 MG CAPSULE PO SCH ×2 (09:52→18:04)
[2017-02-03] MEDS: PRENATAL VITAMIN W-O CA NO5/FE FUMARATE/FA CAPSULE PO SCH (09:52)
--- NOTE | 2017-02-03 11:11 | PDOC PROGRESS REPORT ---
Subjective-OB Subjective: Post Delivery Day: 21 year old. Denies any dizziness or lightheadedness when up and about. Ready to go home. Physical Exam (OB) Vital Signs: Temp Pulse Resp BP Pulse Ox 97.7 F 99 18 112/61 98 02/03/17 08:01 02/03/17 08:01 02/03/17 08:01 02/03/17 08:01 02/03/17 08:01 Intake & Output 02/02/17 02/03/17 02/04/17 06:59 06:59 06:59 Intake Total 900 240 340 Balance 900 240 340 - Dressing Removed: No - D&I, no swelling, redness or new drainage noted Incision: Well Approximated Closure Type: op site - Lochia Lochia Amount: Scant < 10 ml Lochia Color: Rubra/Red - Abdomen Description: Tender, Soft Hernia Present: No Bowel Sounds: Normoactive Flatus Presence: Present Stool: No Fundal Description: Firm, Midline Fundal Height: u/u - u/2 Objective-Diagnostic Laboratory: 02/03/17 07:20 02/03/17 07:20 WBC 13.5 H RBC 3.03 L Hgb 7.9 L Hct 24.9 L MCV 82 MCH 25.9 L MCHC 31.6 L RDW 15.9 H Plt Count 152 Seg Neutrophils % 80.0 H Lymphocytes % 11.8 L Monocytes % 5.7 Eosinophils % 2.3 Basophils % 0.2 Absolute Neutrophils 10.8 H Absolute Lymphocytes 1.6 Absolute Monocytes 0.8 Absolute Eosinophils 0.3 Absolute Basophils 0.0
[2017-02-03 11:14] VITALS: BP 118/59
--- NOTE | 2017-02-03 11:20 | PDOC DISCHARGE SUMMARY ---
Final Diagnosis Discharge Date: 02/03/17 - Final Diagnosis (1) Chlamydia infection during Is this a current diagnosis for this admission?: Yes (2) Delivery by emergency caesarean section Is this a current diagnosis for this admission?: Yes (3) Maternal fever during labor, delivered Is this a current diagnosis for this admission?: Yes (4) Obesity Is this a current diagnosis for this admission?: Yes (5) Is this a current diagnosis for this admission?: Yes Discharge Data - Discharge Medication Home Medications: Hydroxyzine Pamoate [Vistaril] 5 mg PO PRN PRN 01/27/17 Vit/Iron Fumarate/FA [ Tablet] 1 each PO DAILY 01/27/17 Docusate Sodium [Colace 100 mg Capsule] 100 mg PO BID #30 capsule 02/03/17 Ferrous Sulfate 325 mg PO BID #60 tablet. 02/03/17 Ibuprofen [Motrin 800 mg Tablet] 800 mg PO Q6 #30 tablet 02/03/17 Oxycodone HCl/Acetaminophen [Percocet 5-325 mg Tablet] 1 tab PO Q4HP PRN #20 tablet 02/03/17 Gestational Age: 39.2 wks Reason(s) for Admission: PROM Procedures: Ultrasound Intrapartum Procedure(s): : Low Cervical, Transverse - Data Baby 1 Male at 1 minute: 9 at 5 minutes: 9 Weight: 3.742 kg Home with Mother: Yes Complications: No - Diagnosis Test Laboratory: Temp Pulse Resp BP Pulse Ox 97.7 F 99 18 118/59 L 98 02/03/17 11:09 02/03/17 11:09 02/03/17 11:09 02/03/17 11:09 02/03/17 11:09 01/30/17 02/01/17 02/02/17 17:15 06:19 07:25 RBC 3.93 3.46 L 3.27 L Hgb 10.4 L 9.1 L 8.6 L Hct 31.6 L 28.4 L 27.1 L 02/03/17 07:20 RBC 3.03 L Hgb 7.9 L Hct 24.9 L - Discharge information/Instructions Discharge Activity: Activity As Tolerated, Balance Activity w/Rest, No Lifting Over 10 Pounds, No Lifting/Push/Pulling, Pelvic Rest, Slowly Increase Activity, No tub bath Discharge Diet: Regular Disposition: HOME, SELF-CARE Follow up with: [facility] in: 1, Weeks
--- NOTE | 2017-03-12 10:31 | OPERATIVE REPORT E ---
Operative Report NAME: FADI ARANDA : 1995 AGE: 21Y DATE OF SURGERY: 01/31/2017 ROOM: 227 PREOPERATIVE DIAGNOSIS: Arrest of descent. POSTOPERATIVE DIAGNOSIS: Arrest of descent. PROCEDURE: Primary low-transverse section. SURGEON: Jakub Kamara D.O. RECREATIONAL FACILITIES MOTEL MANAGER: None. ANESTHESIA: Epidural. COMPLICATIONS: None. PATHOLOGY: Placenta. ESTIMATED BLOOD LOSS: 600 mL. FINDINGS: 1. Viable male infant at 1610 hours on 01/31/2017, Apgars of 8 at one and 9 at five. 2. Normal-appearing bilateral fallopian tubes and ovaries. PROCEDURE: The patient was taken to the operating room where her epidural anesthesia was found to be adequate. She was then placed in a dorsal supine position with leftward tilt upon the operating table. She was then prepped and draped in normal sterile fashion. A scalpel was then used to make a Pfannenstiel skin incision. The skin incision was carried down through the subcutaneous tissues to the layer of the fascia. The fascia was incised in the midline. The fascial incision was then extended bilaterally using the Bovie cautery. The superior fascial edge was then grasped with Kimani clamps, elevated, and the rectus muscles dissected off sharply and bluntly. The inferior fascial edge was then grasped with Kimani clamps and elevated and the rectus muscles were dissected off sharply and bluntly. Rectus muscles were in the midline, peritoneum identified and entered bluntly with the surgeon's hand. A bladder blade was inserted. A scalpel was then used to make a low-transverse hysterotomy incision. The infant was delivered through this incision without difficulty and atraumatically, and the nose and mouth were suctioned, the cord was clamped and cut, and the was handed off to the awaiting nurses. Cord blood was obtained. The placenta was then manually removed from the uterus. The uterus was then exteriorized and cleared of all clots and debris. The hysterotomy incision was repaired using 2 layers of 1-0 Vicryl in a running, locking fashion. Following closure of the second layer excellent hemostasis was noted. The uterus was then returned to the abdomen. Again, the hysterotomy incision was reinspected and found to have excellent hemostasis. Rectus muscles were then reapproximated using 1-0 Vicryl interrupted sutures. The fascia was then closed using 1-0 Vicryl in a running, nonlocking fashion. The subcutaneous space was then made hemostatic using Bovie cautery. The skin was then closed with absorbable dinora, covered with an OpSite and then with a pressure dressing. At this point in time the procedure was terminated. All sponge, lap, and needle counts were correct x2. The patient tolerated the procedure well. The patient was taken to the recovery room in stable condition. DICTATING PHYSICIAN: Jakub Kamara DO [id number] PHY#: [id number] ID: [id number] JOB#: [id number] ACCT: [id number] cc:Jakub Kamara D.O. >
== END 2017-02-03 19:00 | disposition home or self-care (01) | DRG 765 ==
LOC: LC 15:35 → LR 16:30 → 2S 01-31 19:00
PROVIDERS: ADMIT Obstetrics & Gynecology; ATTEND Obstetrics & Gynecology
PROC: 4A1HXCZ Monitoring of Products of Conception, Cardiac Rate, External Approach (ICD-10-PCS; 2017-01-30)
PROC: 4A1HXCZ Monitoring of Products of Conception, Cardiac Rate, External Approach (ICD-10-PCS; 2017-01-30)
PROC: 10D00Z1 Extraction of Products of Conception, Low, Open Approach (ICD-10-PCS; principal; 2017-01-31)
DX: O32.4XX0 Maternal care for high head at term, not applicable or unspecified (principal); O75.2 Pyrexia during labor, not elsewhere classified; Z68.41 Body mass index [BMI] 40.0-44.9, adult; O42.02 Full-term premature rupture of membranes, onset of labor within 24 hours of rupture; O99.214 Obesity complicating childbirth; Z28.21 Immunization not carried out because of patient refusal; E66.9 Obesity, unspecified; Z87.891 Personal history of nicotine dependence; Z3A.39 39 weeks gestation of pregnancy; Z37.0 Single live birth
CPT/HCPCS: 1961; 36415; 59025; 80307; 81005; 85025; 85027; 86592; 86850; 86900; 86901; 87210; 87491; 87591; 94799; J0690; J1170; J2175; J2210; J2250; J2405; J2590; J3010; J3490; J7120

== ENCOUNTER 2017-02-06 14:40 | Emergency (ER) | payer MEDICAID ==
--- NOTE | 2017-02-06 16:47 | ER Document Report ---
ED Medical Screen (RME) - General Chief Complaint: Leg Swelling Stated Complaint: BILATERAL LEG SWELLING Time Seen by Provider: 02/06/17 16:40 Mode of Arrival: Ambulatory Information source: Patient Notes: 21 year old female presents to the ED complaining of bilateral leg swelling that started 4 days ago and has progressively gotten worse. Patient reports that 3 days ago the swelling had spread to her knees and was severe enough that her knees were touching when her legs were spread out. Patient reports that she delivered 6 days ago () and had mild swelling at the time. The nurse told the patient to elevate her feet and use ice packs to reduce the swelling. Today, the patient called her OB and was told to come to the ED. Patient additionally complains of mild tenderness to the bilateral ankles. Patient denies shortness of breath when laying down. TRAVEL OUTSIDE OF THE [place] IN LAST 30 DAYS: No - HPI Patient complains to provider of: Bilateral leg swelling Onset: Other - 4 days ago Onset/Duration: Gradual Associated Symptoms: Other - see notes above - Related Data Smoking: Non-smoker Frequency of alcohol use: None Drug Abuse: None Allergies/Adverse Reactions: No Known Allergies Allergy (Verified 02/06/17 14:44) Past Medical History - General Information source: Patient - Social History Chew tobacco use (# tins/day): No Frequency of alcohol use: None Drug Abuse: None Family history: Reviewed & Not Pertinent Renal/ Medical History: Reports: Hx Ovarian Cysts. Denies: Hx Peritoneal Dialysis Past Surgical History: Reports: Hx Section - 01/31/2017, Hx Oral Surgery - ear surg x3, wisdom teeth - Immunizations Hx Diphtheria, Pertussis, Tetanus Vaccination: Yes Review of Systems - Review of Systems Constitutional: No symptoms reported EENT: No symptoms reported Cardiovascular: No symptoms reported Respiratory: No symptoms reported. denies: Short of breath Gastrointestinal: No symptoms reported Genitourinary: No symptoms reported Female Genitourinary: No symptoms reported Musculoskeletal: See HPI, Joint pain - bilateral ankles, Leg swelling - bilateral Skin: No symptoms reported Hematologic/Lymphatic: No symptoms reported Neurological/Psychological: No symptoms reported -: Yes All other systems reviewed and negative Physical Exam - Vital signs Vitals: Temp Pulse Resp BP Pulse Ox 98.2 F 107 H 18 140/81 H 99 02/06/17 14:45 02/06/17 14:45 02/06/17 14:45 02/06/17 14:45 02/06/17 14:45 - General General appearance: Alert In distress: None - Respiratory Respiratory status: No respiratory distress Breath sounds: Normal - Cardiovascular Rhythm: Regular, Tachycardia Heart sounds: Normal auscultation Murmur: No Friction rub: No Gallop: None auscultated - Extremities General upper extremity: Normal inspection, Normal ROM General lower extremity: Edema - 3+ pitting edema to the level of the bilateral knees of which only 2+ is pitting., Normal ROM. No: Normal inspection Course - Vital Signs Vital signs: Temp Pulse Resp BP Pulse Ox 98.2 F 107 H 18 140/81 H 99 02/06/17 14:45 02/06/17 14:45 02/06/17 14:45 02/06/17 14:45 02/06/17 14:45 Scribe Documentation - Scribe Written by Gaston:: Gaston Moreland, 02/06/2017 1802 acting as scribe for :: Senait
[2017-02-06 18:16] LABS: ALANINE AMINOTRANSFERASE 30 U/L (9-52); ALBUMIN 2.7 g/dL (3.5-5.0); ALKALINE PHOSPHATASE 112 U/L (38-126); ANION GAP 10 (5-19); ASPARTATE AMINO TRANSFERASE 21 U/L (14-36); BILIRUBIN,DIRECT 0.2 mg/dL (0.0-0.4); BILIRUBIN,TOTAL 0.4 mg/dL (0.2-1.3); BLOOD UREA NITROGEN 12 mg/dL (7-20); CALCIUM 8.8 mg/dL (8.4-10.2); CARBON DIOXIDE 24 mmol/L (22-30); CHLORIDE 106 mmol/L (98-107); CREATININE RESULT 0.52 mg/dL (0.52-1.25); GLUCOSE 91 mg/dL (75-110); TOTAL PROTEIN 5.9 g/dL (6.3-8.2)
[2017-02-06 18:20] LABS: HEMATOCRIT 26.5 % (36.0-47.0); HEMOGLOBIN 8.4 g/dL (12.0-15.5); HGB HCT DIFFERENCE -1.3; MEAN CORPUSCULAR HEMOGLOBIN 25.7 pg (27.0-33.4); MEAN CORPUSCULAR HGB CONC 31.7 g/dL (32.0-36.0); MEAN CORPUSCULAR VOLUME 81 fl (80-97); RED BLOOD COUNT 3.27 10^6/uL (3.72-5.28); RED CELL DISTRIBUTION WIDTH 15.4 % (11.5-14.0); WHITE BLOOD COUNT 8.7 10^3/uL (4.0-10.5)
[2017-02-06 18:55] LABS: BAND NEUTROPHILS % (MANUAL) 3 % (3-5); BASOPHILS % (MANUAL) 0 % (0-2); EOSINOPHILS % (MANUAL) 5 % (0-6); LYMPHOCYTES % (MANUAL) 23 % (13-45); NUCLEATED RED BLOOD CELLS 1 /100 WBC (0); TOTAL CELLS COUNTED 100
[2017-02-06 18:56] LABS: TOXIC GRANULATION 1+
[2017-02-06 18:58] LABS: ANISOCYTOSIS SLIGHT; HYPOCHROMASIA SLIGHT; POLYCHROMASIA SLIGHT; TEAR DROP CELLS SLIGHT
[2017-02-06 18:59] LABS: PLATELET CLUMPS PRESENT; POIKILOCYTOSIS SLIGHT
[2017-02-06 19:13] LABS: APPEARANCE,URINE CLOUDY; BILIRUBIN,URINE NEGATIVE (NEGATIVE); GLUCOSE, URINE NEGATIVE (NEGATIVE); KETONES,URINE NEGATIVE (NEGATIVE); LEUKOCYTE ESTERASE,URINE MODERATE (NEGATIVE); NITRITE,URINE NEGATIVE (NEGATIVE); PROTEIN,URINE NEGATIVE (NEGATIVE); URINE SPECIFIC GRAVITY 1.015; UROBILINOGEN,URINE NEGATIVE mg/dL (<2.0)
--- NOTE | 2017-02-06 20:00 | ER Document Report ---
ED Extremity Problem, Lower - General Mode of Arrival: Ambulatory TRAVEL OUTSIDE OF THE [place] IN LAST 30 DAYS: No - HPI Patient complains to provider of: Pain, Swelling Location: Foot - bilateral, Knee - bilateral, Leg - bilateral Occurred: Other - 4 days ago Context: Recent surgery - 6 days ago Associated symptoms: Other - see notes above <COLLIN DEWEY - Last Filed: 02/06/17 20:48> <TAYLOR BUSTILLOS - Last Filed: 02/06/17 21:01> - General Chief Complaint: Leg Swelling Stated Complaint: BILATERAL LEG SWELLING Time Seen by Provider: 02/06/17 16:40 Notes: 21 year old female presents to the ED complaining of bilateral leg swelling that started 4 days ago and has progressively gotten worse. Patient reports that 3 days ago the swelling spread to her knees and was severe enough that her knees were touching when her legs were spread out. Patient reports that she delivered 6 days ago () and had mild swelling at the time. The nurse told the patient to elevate her feet and use ice packs to reduce the swelling. Today, the patient called her OB and was told to come to the ED. Patient additionally complains of mild tenderness to the bilateral ankles. Patient denies shortness of breath when laying down. (COLLIN DEWEY) - Related Data Allergies/Adverse Reactions: No Known Allergies Allergy (Verified 02/06/17 14:44) Past Medical History - General Information source: Patient - Social History Smoking Status: Never Smoker Chew tobacco use (# tins/day): No Frequency of alcohol use: None Drug Abuse: None Family History: Reviewed & Not Pertinent Patient has suicidal ideation: No Patient has homicidal ideation: No Renal/ Medical History: Reports: Hx Ovarian Cysts. Denies: Hx Peritoneal Dialysis Past Surgical History: Reports: Hx Section - 01/31/2017, Hx Oral Surgery - ear surg x3, wisdom teeth - Immunizations Hx Diphtheria, Pertussis, Tetanus Vaccination: Yes <COLLIN DEWEY - Last Filed: 02/06/17 20:48> Review of Systems - Review of Systems Constitutional: No symptoms reported EENT: No symptoms reported Cardiovascular: No symptoms reported Respiratory: No symptoms reported. denies: Short of breath Gastrointestinal: No symptoms reported Genitourinary: No symptoms reported Female Genitourinary: No symptoms reported Musculoskeletal: See HPI, Joint pain - bilateral ankles, Joint swelling - bilateral knee swelling, Leg swelling - bilateral, Ankle swelling - bilateral Skin: No symptoms reported Hematologic/Lymphatic: No symptoms reported Neurological/Psychological: No symptoms reported -: Yes All other systems reviewed and negative <COLLIN DEWEY - Last Filed: 02/06/17 20:48> Physical Exam <COLLIN DEWEY - Last Filed: 02/06/17 20:48> <TAYLOR BUSTILLOS - Last Filed: 02/06/17 21:01> - Vital signs Vitals: Temp Pulse Resp BP Pulse Ox 98.2 F 107 H 18 140/81 H 99 02/06/17 14:45 02/06/17 14:45 02/06/17 14:45 02/06/17 14:45 02/06/17 14:45 - Notes Notes: GENERAL: Alert, interacts well. No acute distress. HEAD: Normocephalic, atraumatic. EYES: Pupils equal, round, and reactive to light. Extraocular movements intact. ENT: Oral mucosa moist, tongue midline. NECK: Full range of motion. Supple. Trachea midline. LUNGS: Clear to auscultation bilaterally, no wheezes, rales, or rhonchi. No respiratory distress. HEART: Tachycardic with regular rhythm. No murmurs, gallops, or rubs. ABDOMEN: Non-distended. EXTREMITIES: Moves all 4 extremities spontaneously. Dorsalis pedis pulses 2/4 bilaterally. No cyanosis. 3+ edema to the level of the knees of which 2+ is pitting. NEUROLOGICAL: Alert and oriented x3. Normal speech. PSYCH: Normal affect, normal mood. SKIN: Warm, dry, normal turgor. No rashes or lesions noted. (COLLIN DEWEY) Course - Laboratory Result Diagrams: 02/06/17 17:14 02/06/17 17:14 <COLLIN DEWEY - Last Filed: 02/06/17 20:48> - Laboratory Result Diagrams: 02/06/17 17:14 02/06/17 17:14 <TAYLOR BUSTILLOS - Last Filed: 02/06/17 21:01> - Re-evaluation Re-evalutation: 02/06/17 20:00 CBC shows anemia with hemoglobin 8.4 but this is an improvement from a discharge hemoglobin of 7.9, platelets normal, no leukocytosis, CMP grossly unremarkable with the exception of low protein and albumin, urinalysis shows large blood and moderate leukocyte esterase with 3 squamous epithelial cells, this is consistent with contamination from her vaginal bleeding. Discussed with Dr. Curtis, I do not see any signs of preeclampsia, no indication for starting any medications at this point. Patient is experiencing steadily decreasing vaginal bleeding. Discussed with patient the need to walk in order to help mobilize the fluid, drink plenty of fluids and keep her legs elevated when she is not walking. Also encouraged to use compression hose. 02/06/17 21:00 Dhaval wraps were applied to the bilateral feet and calves to help decrease swelling. This is not a splinting procedure (TAYLOR BUSTILLOS) - Vital Signs Vital signs: Temp Pulse Resp BP Pulse Ox 98.2 F 120 H 18 116/82 100 02/06/17 14:45 02/06/17 20:54 02/06/17 20:54 02/06/17 20:54 02/06/17 20:54 - Laboratory Laboratory results interpreted by me: 02/06/17 02/06/17 02/06/17 17:14 17:14 17:14 RBC 3.27 L Hgb 8.4 L Hct 26.5 L MCH 25.7 L MCHC 31.7 L RDW 15.4 H Metamyelocytes % 1 H Myelocytes % 1 H Total Protein 5.9 L Albumin 2.7 L Urine Blood LARGE H Ur Leukocyte Esterase MODERATE H Urine Ascorbic Acid 40 H Discharge <COLLIN DEWEY - Last Filed: 02/06/17 20:48> <TAYLOR BUSTILLOS - Last Filed: 02/06/17 21:01> - Discharge Clinical Impression: edema Condition: Stable Disposition: HOME, SELF-CARE Additional Instructions: Drink plenty of fluids, keep your legs elevated when you are sitting down, walk at least 15 minutes a day to help mobilize the fluids and return to the ED for any new or concerning symptoms. Scribe Attestation: 02/06/17 21:01 I personally performed the services described in the documentation, reviewed and edited the documentation which was dictated to the scribe in my presence, and it accurately records my words and actions. (TAYLOR BUSTILLOS) Scribe Documentation - Scribe Written by Scribe:: Gaston Moreland, 02/06/2017 2100 acting as scribe for :: Senait <COLLIN DEWEY - Last Filed: 02/06/17 20:48>
[2017-02-06 20:56] VITALS: BP 116/82
== END 2017-02-06 20:50 | disposition home or self-care (01) ==
LOC: ER 14:40
DX: R60.0 Localized edema (principal); M79.89 Other specified soft tissue disorders
CPT/HCPCS: 36415; 80053; 81001; 85025; 99283

== ENCOUNTER → 2017-07-24 | Outpatient (CLI) | payer MEDICAID ==
--- NOTE | 2017-07-24 15:10 | RADIOLOGY REPORT (SQ) ---
EXAM DESCRIPTION: U/S OB TRANSVAGINAL W/O DOP COMPLETED DATE/TIME: 07/24/2017 2:28 pm REASON FOR STUDY: VAGINAL BLEEDING IN PATIENT AT LESS THAN 20 WEEKS GESTATION O20.9 HEMORR JUAREZ IN EARLY , UNSPECIFIED COMPARISON: None. TECHNIQUE: Transvaginal static and realtime grayscale images acquired of the pelvis. Additional moo cted spectral and color Doppler images recorded. All images stored on PACs. bHCG: Not available. LIMITATIONS: Limited exam due to patient discomfort and body habitus. FINDINGS: FETUS: Living intrauterine . EGA: 6 week 3 day. TREVOR: 03/16/2018. FHR: 155 beats per minute. SUBCHORIONIC BLEED: No. SIZE OF BLEED: Not applicable. UTERUS: No masses. No anomalies. CERVICAL LENGTH: Not adequately visualized. RIGHT ADNEXA: Ovary not identified. No adnexal free fluid. No adnexal masses. LEFT ADNEXA: Ovary not identified. No adnexal free fluid. No adnexal masses. FREE FLUID: None. OTHER: No other significant finding. IMPRESSION: LIVING INTRAUTERINE . EGA 6 WEEK 3 DAY. Trimester of : First - 0 to 13 weeks. TECHNICAL DOCUMENTATION: JOB ID: [id number] [employer]- All Rights Reserved
== END ==
LOC: RAD 13:27
PROVIDERS: ATTEND Nurse Practitioner Family
DX: O20.9 Hemorrhage in early pregnancy, unspecified (principal)
CPT/HCPCS: 76817

== ENCOUNTER 2017-12-01 13:45 | Emergency (ER) | payer MEDICAID ==
[2017-12-01] MEDS ORDERED: KETOROLAC TROMETHAMINE 60 MG/2 ML SDV IV ONE (14:24)
[2017-12-01] MEDS ORDERED: DIPHENHYDRAMINE HCL 50 MG/ML VIAL IV ONE (14:24)
[2017-12-01] MEDS ORDERED: METOCLOPRAMIDE HCL INJ/PF 10 MG/2 ML SDV IV ONE (14:24)
[2017-12-01] MEDS ORDERED: NORMAL SALINE 1000 ML 1,000 ML IV ONE (14:24)
--- NOTE | 2017-12-01 14:29 | ER Document Report ---
ED General - General Mode of Arrival: Ambulatory Information source: Patient TRAVEL OUTSIDE OF THE [place] IN LAST 30 DAYS: No <NARESH PAEZ - Last Filed: 12/01/17 20:25> <TAYLOR BUSTILLOS - Last Filed: 12/01/17 22:54> - General Chief Complaint: Headache Stated Complaint: HEADACHE,NAUSEA,VOMITING Time Seen by Provider: 12/01/17 14:07 Notes: 21 y.o female with a PMHx of RT ear surgery 6 years ago who presents to the ED with a frontal and temporal KRISHNAMURTHY for the past 3 days. Pt is 25 weeks ; G2 , P1. She states that her pain worsens with movement and light, so she has been staying in bed since the onset of her KRISHNAMURTHY until this morning when she went to baptism which exacerbated her symptoms. She also reports constipation, 101 fever yesterday that has since resolved and one episode of vomiting this morning that has since resolved. Pt also notes some RT sided abdominal cramping that occurred this morning that has since resolved, however she denies any vaginal bleeding, blood in urine or any other genitourinary symptoms. Pt denies any neck pain or stiffness. Pt reports a KRISHNAMURTHY like this once before when she was dehydrated but denies any Hx of migraines or KRISHNAMURTHY but states that her sister has a hx of migraines. She reports drinking plenty of fluids and taking two 500mg Tylenol every 4 hours without relief. Pt denies any Hx of preeclampsia. ( NARESH PAEZ) - Related Data Allergies/Adverse Reactions: No Known Allergies Allergy (Verified 02/06/17 14:44) Past Medical History - General Information source: Patient - Social History Cigarette use (# per day): No Chew tobacco use (# tins/day): No Frequency of alcohol use: None Drug Abuse: None Family History: Other - Sister has Hx of migraines Renal/ Medical History: Reports: Hx Ovarian Cysts. Denies: Hx Peritoneal Dialysis Past Surgical History: Reports: Hx Section - 01/31/2017, Hx Oral Surgery - ear surg x3, wisdom teeth - Immunizations Hx Diphtheria, Pertussis, Tetanus Vaccination: Yes <NARESH PAEZ - Last Filed: 12/01/17 20:25> - Social History Smoking Status: Never Smoker <TAYLOR BUSTILLOS - Last Filed: 12/01/17 22:54> Review of Systems - Review of Systems Constitutional: See HPI, Fever - 101.0 fever yesterday. EENT: See HPI, Ear pain Cardiovascular: No symptoms reported Respiratory: No symptoms reported Gastrointestinal: See HPI, Abdominal pain - one episode of RT sided cramping, since resolved., Vomiting - one episode this morning, since resolved, Constipation. denies: Diarrhea Genitourinary: See HPI. denies: Hematuria Female Genitourinary: See HPI, - 25 weeks. denies: Vaginal discharge, Vaginal bleeding Musculoskeletal: See HPI. denies: Muscle pain - denies neck pain, Muscle stiffness - denies neck stiffness Skin: No symptoms reported Hematologic/Lymphatic: No symptoms reported Neurological/Psychological: See HPI, Headaches - X3 days -: Yes All other systems reviewed and negative <NARESH PAEZ - Last Filed: 12/01/17 20:25> Physical Exam <NARESH PAEZ - Last Filed: 12/01/17 20:25> <TAYLOR BUSTILLOS - Last Filed: 12/01/17 22:54> - Vital signs Vitals: Temp Pulse Resp BP Pulse Ox 97.5 F 104 H 20 125/74 98 12/01/17 13:52 12/01/17 13:52 12/01/17 13:52 12/01/17 13:52 12/01/17 13:52 - Notes Notes: PHYSICAL EXAM GENERAL: Alert, interacts well. No acute distress. HEAD: Normocephalic, atraumatic. EYES: Pupils equal, round, and reactive to light. Extraocular movements intact. ENT: Oral mucosa moist, tongue midline. Rhinorrhea and edema to bilateral turbinates. Right TM ruptured without change in hearing. Oropharyngeal lymphoid hypertophy. Posterior oropharynx erythema with post nasal drip. No frontal sinus cavity tenderness to percussion, tenderness to percussion to the bilateral maxillary sinuses. NECK: Full range of motion. Supple. Trachea midline. LUNGS: Clear to auscultation bilaterally, no wheezes, rales, or rhonchi. No respiratory distress. HEART: Mild tachycardia, regular rhythm. No murmurs, gallops, or rubs. ABDOMEN: Soft. Gravid appropriate to date. RT abd tenderness to palpation that extends over the uterus. Bowel sounds present in all 4 quadrants. No guarding, rebound, or rigidity. BACK: No midline tenderness to palpation. No CVA tenderness to percussion. EXTREMITIES: Moves all 4 extremities spontaneously. Trace edema to bilateral lower extremities appropriate for term. Radial and dorsalis pedis pulses 2/4 bilaterally. No cyanosis. NEUROLOGICAL: Alert and oriented x3. Normal speech. cranial nerves II through XII grossly intact. Biceps and patellar DTRs 2+ bilaterally. Finger to nose test intact. PSYCH: Normal affect, normal mood. SKIN: Warm, dry, normal turgor. No rashes or lesions noted. (NARESH PAEZ) Course <NARESH PAEZ - Last Filed: 12/01/17 20:25> <TAYLOR BUSTILLOS - Last Filed: 12/01/17 22:54> - Re-evaluation Re-evalutation: 12/01/17 16:05 Urinalysis shows glucose, small blood, no protein, large leukocyte esterase, 1+ bacteria, 2 squamous epithelial cells, suspect true infection rather than contamination. I will treat bacteriuria in this patient with Macrobid. Patient will be discharged to home with Macrobid. After receiving Toradol, Reglan, Benadryl her headache is reduced by more than 50%, feeling much better. Recommend nasal saline rinses for the rhinorrhea and sinus pressure, recommend Claritin as well, recommended using magnesium for these headaches during combined with constipation. Patient is agreeable all of these recommendations. Patient will be discharged home. Patient had one cramp this morning that she said felt like a [place] Guy has not had any since then, offered monitoring on labor and delivery, patient declined. Patient will return for any further contractions. 12/01/17 16:06 No neck stiffness, no evidence of meningitis at this time. (TAYLOR BUSTILLOS) - Vital Signs Vital signs: Temp Pulse Resp BP Pulse Ox 98.1 F 82 16 129/64 H 99 12/01/17 16:24 12/01/17 16:24 12/01/17 16:24 12/01/17 16:24 12/01/17 16:24 - Laboratory Laboratory results interpreted by me: 12/01/17 14:20 Urine Glucose (UA) 150 H Urine Blood SMALL H Ur Leukocyte Esterase LARGE H Discharge <NARESH PAEZ - Last Filed: 12/01/17 20:25> <TAYLOR BUSTILLOS - Last Filed: 12/01/17 22:54> - Discharge Clinical Impression: Cystitis, Second trimester , Frontal headache Maxillary sinusitis Qualifiers: Chronicity: acute Recurrence: non-recurrent Qualified Code(s): J01.00 - Acute maxillary sinusitis, unspecified Constipation Qualifiers: Constipation type: slow transit constipation Qualified Code(s): K59.01 - Slow transit constipation Condition: Stable Disposition: HOME, SELF-CARE Additional Instructions: We treated her headache with Toradol, Reglan and Benadryl. I suspect her headache is being caused by the inflammation in your sinuses. This may be viral or it may be allergic. Please use nasal saline rinses such as a NetiPot or NeilMed Sinus Rinses. You may also take Claritin as directed on the box over -the-counter. This is safe in . I have also prescribed you 1 week of magnesium, this is safe in and can help with both headaches and constipation. If you find it gives you good relief please see your SENIOR WEB DEVELOPER regarding taking it on a daily basis for longer than 1 week. You do have bacteria in your urine, we are treating this with Macrobid. Return for fevers, neck stiffness, confusion or any new or concerning symptoms. Prescriptions: Magnesium Oxide 400 mg PO BID #14 tablet Nitrofurantoin/Nitrofuran Mac [Macrobid 100 mg Capsule] 1 tab PO BID #14 capsule Referrals: JESUS OCAMPO MD [Primary Care Provider] - Follow up in 1 week Scribe Attestation: 12/01/17 22:54 I personally performed the services described in the documentation, reviewed and edited the documentation which was dictated to the scribe in my presence, and it accurately records my words and actions. (TAYLOR BUSTILLOS) Scribe Documentation - Scribe Written by Gaston:: Gaston Nieto 12/01/2017 2030 acting as scribe for :: Senait <NARESH PAEZ - Last Filed: 12/01/17 20:25>
[2017-12-01 14:55] LABS: APPEARANCE,URINE SLIGHTLY-CLOUDY; BILIRUBIN,URINE NEGATIVE (NEGATIVE); COLOR,URINE STRAW; GLUCOSE, URINE 150 mg/dL (NEGATIVE); KETONES,URINE NEGATIVE (NEGATIVE); LEUKOCYTE ESTERASE,URINE LARGE (NEGATIVE); NITRITE,URINE NEGATIVE (NEGATIVE); PROTEIN,URINE NEGATIVE (NEGATIVE); URINE SPECIFIC GRAVITY 1.006; UROBILINOGEN,URINE NEGATIVE mg/dL (<2.0)
[2017-12-01 16:20] VITALS: BP 129/64
== END 2017-12-01 16:19 | disposition home or self-care (01) ==
LOC: ER 13:45
DX: O23.12 Infections of bladder in pregnancy, second trimester (principal); O99.512 Diseases of the respiratory system complicating pregnancy, second trimester; J01.00 Acute maxillary sinusitis, unspecified; O99.612 Diseases of the digestive system complicating pregnancy, second trimester; K59.01 Slow transit constipation; O21.2 Late vomiting of pregnancy; O26.892 Other specified pregnancy related conditions, second trimester; R51 Headache; Z3A.25 25 weeks gestation of pregnancy; Z82.0 Family history of epilepsy and other diseases of the nervous system; Z87.42 Personal history of other diseases of the female genital tract
CPT/HCPCS: 99284; 96361; 96374; 96375; 87086; 81001; J1200; J1885; J2765; J7030

== ENCOUNTER 2018-01-28 14:44 | Outpatient (CLI) | payer MEDICAID ==
[2018-01-28 15:24] LABS: HEMATOCRIT 33.9 % (36.0-47.0); HEMOGLOBIN 11.1 g/dL (12.0-15.5); MEAN CORPUSCULAR HEMOGLOBIN 25.3 pg (27.0-33.4); MEAN CORPUSCULAR HGB CONC 32.7 g/dL (32.0-36.0); MEAN CORPUSCULAR VOLUME 77 fl (80-97); PLATELET COUNT 148 10^3/uL (150-450); RED BLOOD COUNT 4.39 10^6/uL (3.72-5.28); RED CELL DISTRIBUTION WIDTH 15.8 % (11.5-14.0); WHITE BLOOD COUNT 8.8 10^3/uL (4.0-10.5)
[2018-01-28 15:25] LABS: APPEARANCE,URINE CLEAR; BILIRUBIN,URINE NEGATIVE (NEGATIVE); COLOR,URINE YELLOW; GLUCOSE, URINE NEGATIVE (NEGATIVE); KETONES,URINE NEGATIVE (NEGATIVE); LEUKOCYTE ESTERASE,URINE MODERATE (NEGATIVE); NITRITE,URINE NEGATIVE (NEGATIVE); PROTEIN,URINE 100 mg/dL (NEGATIVE); URINE SPECIFIC GRAVITY 1.017; UROBILINOGEN,URINE NEGATIVE mg/dL (<2.0)
[2018-01-28 15:39] LABS: ALANINE AMINOTRANSFERASE 13 U/L (9-52); ALKALINE PHOSPHATASE 116 U/L (38-126); ANION GAP 7 (5-19); ASPARTATE AMINO TRANSFERASE 15 U/L (14-36); BILIRUBIN,DIRECT 0.2 mg/dL (0.0-0.4); BILIRUBIN,TOTAL 0.4 mg/dL (0.2-1.3); BLOOD UREA NITROGEN 12 mg/dL (7-20); CALCIUM 9.3 mg/dL (8.4-10.2); CARBON DIOXIDE 24 mmol/L (22-30); CHLORIDE 106 mmol/L (98-107); GLUCOSE 78 mg/dL (75-110); LDH 585 U/L (313-618); POTASSIUM 4.5 mmol/L (3.6-5.0); TOTAL PROTEIN 5.8 g/dL (6.3-8.2); URIC ACID 6.8 mg/dL (2.5-6.2)
[2018-01-28 15:43] LABS: UR PRO/CREAT RATIO RESULT 0.6 mg/mg (0.0-0.2); URINE CREATININE 98.8 mg/dL (16-327); URINE PROTEIN 58.9 mg/dL (<12)
[2018-01-28 15:48] LABS: URINE AMPHETAMINES SCREEN NEGATIVE; URINE BARBITURATES SCREEN NEGATIVE; URINE BENZODIAZEPINES SCREEN NEGATIVE; URINE COCAINE SCREEN NEGATIVE; URINE MARIJUANA (THC) SCREEN NEGATIVE; URINE METHADONE SCREEN NEGATIVE; URINE PHENCYCLIDINE SCREEN NEGATIVE
== END 2018-01-28 16:05 | disposition home or self-care (01) ==
LOC: LC 14:44
PROVIDERS: ATTEND Obstetrics & Gynecology
PROC: 4A1HXCZ Monitoring of Products of Conception, Cardiac Rate, External Approach (ICD-10-PCS; principal; 2018-01-28)
DX: O16.3 Unspecified maternal hypertension, third trimester (principal); Z3A.35 35 weeks gestation of pregnancy
CPT/HCPCS: 36415; 59025; 80053; 80307; 81001; 82570; 83615; 84156; 84550; 85027

== ENCOUNTER 2018-01-31 00:24 | Inpatient (IN) | payer MEDICAID ==
--- NOTE | 2018-01-31 01:14 | Non Stress Test Report ---
Non Stress Test Datetime Report Generated by CPN: 01/31/2018 01:14 DEMOGRAPHIC EGA NST: 33.2 INDICATION Indication for Study: Ordered by Provider; Other Indication for Study (NST) Other: Pre-E work up MONITORING Monitor Explained: Monitor Explained; Test Explained; Patient Verbalized Understanding Time on Monitor: 01/28/2018 14:58 Time off Monitor: 01/28/2018 15:52 NST Duration: 54 NST INTERVENTIONS NST Interventions: PO Hydration; Reposition Patient Physician Notified NST: H. Kristopher, CNM Physician Notified NST: H. Kristopher, CNM BABY A: [id number] BABY A Movement : Present Contraction Frequency : none FHR Baseline : 145 Accelerations : 15X15 Decelerations : None Variability : Moderate 6-25bpm NST Review: Meets Criteria for Reactive NST NST Review and Verified By : ABBY Decker Results: Reactive NST REPORT Report Trigger: Send Report
[2018-01-31 01:34] LABS: APPEARANCE,URINE CLOUDY; BILIRUBIN,URINE NEGATIVE (NEGATIVE); COLOR,URINE YELLOW; GLUCOSE, URINE NEGATIVE (NEGATIVE); KETONES,URINE NEGATIVE (NEGATIVE); LEUKOCYTE ESTERASE,URINE MODERATE (NEGATIVE); NITRITE,URINE NEGATIVE (NEGATIVE); PROTEIN,URINE >=500 mg/dL (NEGATIVE); URINE SPECIFIC GRAVITY 1.019; UROBILINOGEN,URINE NEGATIVE mg/dL (<2.0)
[2018-01-31 01:38] LABS: URINE AMPHETAMINES SCREEN NEGATIVE; URINE BARBITURATES SCREEN NEGATIVE; URINE BENZODIAZEPINES SCREEN NEGATIVE; URINE COCAINE SCREEN NEGATIVE; URINE MARIJUANA (THC) SCREEN NEGATIVE; URINE METHADONE SCREEN NEGATIVE; URINE PHENCYCLIDINE SCREEN NEGATIVE
[2018-01-31 01:46] LABS: ABSOLUTE EOSINOPHILS # (AUTO) 0.1 10^3/uL (0.0-0.6); ABSOLUTE LYMPHOCYTES (AUTO) 2.6 10^3/uL (0.5-4.7); ABSOLUTE MONOCYTES (AUTO) 0.7 10^3/uL (0.1-1.4); ABSOLUTE NEUT (AUTO) 5.9 10^3/uL (1.7-8.2); BASOPHILS % (AUTO) 0.3 % (0-2); EOSINOPHILS % (AUTO) 0.7 % (0-6); HEMATOCRIT 34.9 % (36.0-47.0); HEMOGLOBIN 11.4 g/dL (12.0-15.5); MEAN CORPUSCULAR HEMOGLOBIN 25.4 pg (27.0-33.4); MEAN CORPUSCULAR HGB CONC 32.7 g/dL (32.0-36.0); MEAN CORPUSCULAR VOLUME 78 fl (80-97); PLATELET COUNT 142 10^3/uL (150-450); RED CELL DISTRIBUTION WIDTH 15.7 % (11.5-14.0); TOTAL CELLS COUNTED % (AUTO) 100 %; WHITE BLOOD COUNT 9.3 10^3/uL (4.0-10.5)
[2018-01-31 01:57] LABS: ALANINE AMINOTRANSFERASE 18 U/L (9-52); ALBUMIN 3.1 g/dL (3.5-5.0); ALKALINE PHOSPHATASE 110 U/L (38-126); ANION GAP 10 (5-19); ASPARTATE AMINO TRANSFERASE 19 U/L (14-36); BILIRUBIN,DIRECT 0.2 mg/dL (0.0-0.4); BILIRUBIN,TOTAL 0.4 mg/dL (0.2-1.3); BLOOD UREA NITROGEN 17 mg/dL (7-20); CALCIUM 9.6 mg/dL (8.4-10.2); CARBON DIOXIDE 25 mmol/L (22-30); CHLORIDE 106 mmol/L (98-107); GLUCOSE 79 mg/dL (75-110); LDH 630 U/L (313-618); POTASSIUM 4.3 mmol/L (3.6-5.0); SODIUM 141.4 mmol/L (137-145); TOTAL PROTEIN 6.2 g/dL (6.3-8.2); URIC ACID 6.7 mg/dL (2.5-6.2)
--- NOTE | 2018-01-31 02:21 | Admission Physical ---
Datetime Report Generated by CPN: 01/31/2018 02:20 CURRENT ADMISSION Chief Complaint: Other Chief Complaint Other: pedal edema Indication for Induction: Not Applicable Admit Impression- Other: Preeclampsia Admit Plan: Admit to Unit; Observation/Evaluation ALLERGIES Medication Allergies: No Medication Allergies: No Known Allergies (01/28/2018) Latex: No Latex Allergies Food Allergies: none Environmental Allergies: none OBSTETRICAL HISTORY EDC: 03/16/2018 00:00 : 2 Para: 1 Term: 1 : 0 SAB: 0 IAB: 0 Ectopic: 0 Livin Cesareans: 1 VBACs: 0 Multiple Births: 0 Gestational Diabetes: No Rh Sensitization: No Incompetent Cervix: Unknown HAYLEE: No Infertility: No ART Treatment: No Uterine Anomaly: No IUGR: No Hx Previous C/S: Yes Macrosomia: No Hx Loss/Stillborn: No PIH: Yes Hx : No Placenta Previa/Abruption: No Depression/PP Depression: Yes PTL/PROM: No Post Hemorrhage: No Current Procedures: Ultrasound; Amniocentesis/Genetic Obstetrical History Comments: 2016 c/s baby boy, SIDS at 3 months old G2- current SEE RECORDS Alcohol: No Marijuana : No Cocaine: No Other Illicit Drugs: No Cigarettes: Never Smoker. [id number] MEDICAL HISTORY Diabetes: No Blood Transfusion: No Pulmonary Disease (Asthma, TB): No Breast Disease: No Hypertension: No Enrollment Consultant Surgery: No Heart Disease: No Hosp/Surgery: Yes Autoimmune Disorder: No Anesthetic Complications: No Kidney Disease: Yes Abnormal Pap Smear: No Neuro/Epilepsy: No Psychiatric Disorders: Yes Other Medical Diseases: No Hepatitis/Liver Disease: No Significant Family History: No Varicosities/Phlebitis: No Trauma/Violence : No Thyroid Dysfunction: No Medical History Comments: obesity, anxiety not taking meds anymore, frequent UTI's, depression- no meds, prior c/s, 2013 ear surgery x3, wisdom teeth INFECTIOUS HISTORY Gonorrhea: No Genital Herpes: No Chlamydia: Yes Tuberculosis: No Syphilis: No Hepatitis: No HIV/AIDS Exposure: No Rash or Viral Illness: No HPV: No Infectious History Comments: chlamydia 2016 PHYSICAL EXAM General: Normal HEENT: Normal Neurologic: Normal Thyroid: Normal Heart: Normal Lungs: Normal Breast: Normal Back: Normal Abdomen: Normal Genitourinary Exam: Deferred Extremities: Abnormal DTRs: Normal Pelvic Type: Not Done Physical Exam Comments: pedal edema FETUS A EGA: 33.5 Admit Comment: admit for observation INFORMED CONSENT Signature: with User ID: [email or web address]
[2018-01-31 02:23] LABS: URINE CREATININE 88.9 mg/dL (16-327)
[2018-01-31 02:30] LABS: UR PRO/CREAT RATIO RESULT 5.2 mg/mg (0.0-0.2); URINE PROTEIN 462.3 mg/dL (<12)
[2018-01-31] MEDS ORDERED: DIPHENHYDRAMINE HCL 50 MG CAPSULE PO ONE (03:28)
[2018-01-31] MEDS ORDERED: DIPHENHYDRAMINE HCL 25 MG CAPSULE ONE (03:30)
[2018-01-31] MEDS ORDERED: BETAMET ACET/BETAMET NA INJ 6 MG/1 ML ONE (04:39)
[2018-01-31] MEDS: BETAMET ACET/BETAMET NA INJ 6 MG/1 ML IM SCH ×2 (04:43→16:20)
[2018-01-31] MEDS ORDERED: HYDRALAZINE HCL INJ/PF 20 MG/1 ML SDV ONE (08:12)
[2018-01-31] MEDS ORDERED: HYDRALAZINE HCL INJ/PF 20 MG/1 ML SDV IV ONE ×2 (08:13→08:40)
[2018-01-31] MEDS ORDERED: HYDROXYZINE PAMOATE 50 MG CAPSULE PO PRN (08:41)
[2018-01-31] MEDS ORDERED: HYDROXYZINE PAMOATE 50 MG CAPSULE ONE (09:12)
[2018-01-31 09:17] LABS: ABSOLUTE LYMPHOCYTES (AUTO) 1.9 10^3/uL (0.5-4.7); ABSOLUTE MONOCYTES (AUTO) 0.2 10^3/uL (0.1-1.4); ABSOLUTE NEUT (AUTO) 9.9 10^3/uL (1.7-8.2); BASOPHILS % (AUTO) 0.3 % (0-2); EOSINOPHILS % (AUTO) 0.1 % (0-6); HEMATOCRIT 36.6 % (36.0-47.0); HEMOGLOBIN 11.9 g/dL (12.0-15.5); LYMPHOCYTES % (AUTO) 15.8 % (13-45); MEAN CORPUSCULAR HEMOGLOBIN 25.1 pg (27.0-33.4); MEAN CORPUSCULAR HGB CONC 32.5 g/dL (32.0-36.0); MEAN CORPUSCULAR VOLUME 77 fl (80-97); MONOCYTES % (AUTO) 1.8 % (3-13); PLATELET COUNT 157 10^3/uL (150-450); RED BLOOD COUNT 4.74 10^6/uL (3.72-5.28); RED CELL DISTRIBUTION WIDTH 16.2 % (11.5-14.0); TOTAL CELLS COUNTED % (AUTO) 100 %
[2018-01-31 09:38] LABS: ALANINE AMINOTRANSFERASE 22 U/L (9-52); ALBUMIN 3.2 g/dL (3.5-5.0); ALKALINE PHOSPHATASE 125 U/L (38-126); ANION GAP 12 (5-19); ASPARTATE AMINO TRANSFERASE 25 U/L (14-36); BILIRUBIN,DIRECT 0.2 mg/dL (0.0-0.4); BILIRUBIN,TOTAL 0.6 mg/dL (0.2-1.3); BLOOD UREA NITROGEN 14 mg/dL (7-20); CALCIUM 9.5 mg/dL (8.4-10.2); CARBON DIOXIDE 20 mmol/L (22-30); CHLORIDE 108 mmol/L (98-107); GLUCOSE 80 mg/dL (75-110); LDH 673 U/L (313-618); POTASSIUM 4.7 mmol/L (3.6-5.0); SODIUM 139.7 mmol/L (137-145); TOTAL PROTEIN 6.3 g/dL (6.3-8.2); URIC ACID 7.1 mg/dL (2.5-6.2)
[2018-01-31 09:52] LABS: NT PRO BNP 248 pg/mL (<125)
[2018-01-31 09:53] LABS: TROPONIN I < 0.012 ng/mL
--- NOTE | 2018-01-31 10:08 | RADIOLOGY REPORT (SQ) ---
EXAM DESCRIPTION: CHEST SINGLE VIEW COMPLETED DATE/TIME: 01/31/2018 9:56 am REASON FOR STUDY: Dypsnea, Chest pain COMPARISON: None. EXAM PARAMETERS: NUMBER OF VIEWS: One view. TECHNIQUE: Single frontal radiographic view of the chest acquired. RADIATION DOSE: NA LIMITATIONS: None. FINDINGS: LUNGS AND PLEURA: No opacities, masses or pneumothorax. No pleural effusion. MEDIASTINUM AND HILAR STRUCTURES: No masses. Contour normal. HEART AND VASCULAR STRUCTURES: Heart normal in size. Normal vasculature. BONES: Thoracic scoliosis convex to the right is identified. HARDWARE: None in the chest. OTHER: No other significant finding. IMPRESSION: NO ACUTE RADIOGRAPHIC FINDING IN THE CHEST. TECHNICAL DOCUMENTATION: JOB ID: [id number] [employer]- All Rights Reserved Reading location - IP/workstation name: [email or web address]
--- NOTE | 2018-01-31 11:49 | PDOC CONSULTATION ---
Consultation Consult Date: 01/31/18 Attending physician:: CHERIE GRAVES Consult reason:: Chest pain History of Present Illness Admission Date/PCP: 01/31/18 02:58 JACQUIE BRADY MD Patient complains of: Crushing chest pain, orthopnea History of Present Illness: MAI DIAZ is a 22 year old female with a past medical history significant for obesity, depression with anxiety, frequent UTIs who was admitted by the OB/ SALES ADMINISTRATION MANAGER service for preeclampsia and patient who is 35+5 gestation. This morning the patient reported sudden onset crushing chest pain associated with orthopnea. The pain was nonradiating. The patient reports that the pain gradually improved after repositioning to a semisitting position. She denies previous episodes of chest pain. She is currently pain free and denies CP, palpitations, dyspnea, orthopnea, reflux, abdominal pain, nausea, vomiting, diarrhea. She does endorse global headache and generalized edema especially to her feet which is what prompted her to seek evaluation by her ABA TUTOR. She is referred to the hospitalist service for chest pain evaluation. Past Medical History Cardiac Medical History: Reports: None Pulmonary Medical History: Reports: None EENT Medical History: Reports: None Neurological Medical History: Reports: None Endocrine Medical History: Reports: Obesity Renal/ Medical History: Reports: None Malignancy Medical History: Reports: None GI Medical History: Reports: None Musculoskeltal Medical History: Reports: None Skin Medical History: Reports: Psoriasis Psychiatric Medical History: Reports: Depression, General Anxiety Disorder Traumatic Medical History: Reports: None Hematology: Reports: None Infectious Medical History: Reports: None Past Surgical History Past Surgical History: Reports: Section - 01/31/2017, Other - Ears; cholesteatoma removal Social History Information Source: Patient Lives with: Family Smoking Status: Never Smoker Frequency of Alcohol Use: None Hx Recreational Drug Use: No Drugs: None Hx Prescription Drug Abuse: No - Advance Directive Resuscitation Status: Full Code Surrogate healthcare decision maker:: The patient's , Gurwinder Diaz Family History Family History: CAD, CVA, DM, Hypertension, Other - Migraines Parental Family History Reviewed: Yes Children Family History Reviewed: Yes Sibling(s) Family History Reviewed.: Yes Medication/Allergy Home Medications: Vit/Iron Fum/Folic AC [ Tablet] 1 each PO DAILY 01/27/17 Ondansetron HCl [Zofran 4 mg Tablet] 4 mg PO Q4HP PRN 01/31/18 Allergies/Adverse Reactions: No Known Allergies Allergy (Verified 01/28/18 14:55) Review of Systems Constitutional: ABSENT: chills, fever(s), headache(s), weight gain, weight loss Eyes: ABSENT: visual disturbances Ears: ABSENT: hearing changes Nose, Mouth, and Throat: PRESENT: headache(s) Cardiovascular: PRESENT: chest pain, orthropnea, other - Edema no. ABSENT: dyspnea on exertion, edema, palpitations Respiratory: ABSENT: cough, hemoptysis Gastrointestinal: ABSENT: abdominal pain, constipation, diarrhea, hematemesis, hematochezia, nausea, vomiting Genitourinary: ABSENT: dysuria, hematuria Musculoskeletal: ABSENT: joint swelling Integumentary: ABSENT: rash, wounds Neurological: ABSENT: abnormal gait, abnormal speech, confusion, dizziness, focal weakness, syncope Psychiatric: ABSENT: anxiety, depression, homidical ideation, suicidal ideation Endocrine: ABSENT: cold intolerance, heat intolerance, polydipsia, polyuria Hematologic/Lymphatic: ABSENT: easy bleeding, easy bruising Physical Exam Vital Signs: Intake & Output 01/30/18 01/31/18 02/01/18 06:59 06:59 06:59 Weight 123.9 kg Temp 99.7 oral, BP 168/101, HR 86, RR 18, SpO2 100% on RA General appearance: PRESENT: no acute distress, cooperative, morbidly obese, well-developed, well-nourished Head exam: PRESENT: atraumatic, normocephalic Eye exam: PRESENT: conjunctiva pink, EOMI, PERRLA. ABSENT: scleral icterus Ear exam: PRESENT: normal external ear exam Mouth exam: PRESENT: moist, tongue midline Neck exam: ABSENT: carotid bruit, JVD, lymphadenopathy, thyromegaly Respiratory exam: PRESENT: clear to auscultation reji, symmetrical, unlabored. ABSENT: rales, rhonchi, wheezes Cardiovascular exam: PRESENT: gallop, RRR, +S1, +S2. ABSENT: diastolic murmur, rubs, systolic murmur Pulses: PRESENT: normal dorsalis pedis pul Vascular exam: PRESENT: normal capillary refill GI/Abdominal exam: PRESENT: soft, other - . ABSENT: distended, guarding, mass, organolmegaly, rebound, tenderness Rectal exam: PRESENT: deferred Extremities exam: PRESENT: full ROM. ABSENT: calf tenderness, clubbing, pedal edema Neurological exam: PRESENT: alert, awake, oriented to person, oriented to place , oriented to time, oriented to situation, CN II-XII grossly intact. ABSENT: motor sensory deficit Psychiatric exam: PRESENT: appropriate affect, normal mood. ABSENT: homicidal ideation, suicidal ideation Skin exam: PRESENT: dry, intact, warm. ABSENT: cyanosis, rash Results Laboratory Results: 01/31/18 01:36 01/31/18 01:36 01/31/18 01/31/18 01/31/18 00:59 01:36 01:36 WBC 9.3 RBC 4.50 Hgb 11.4 L Hct 34.9 L MCV 78 L MCH 25.4 L MCHC 32.7 RDW 15.7 H Plt Count 142 L Seg Neutrophils % 64.0 Lymphocytes % 28.0 Monocytes % 7.0 Eosinophils % 0.7 Basophils % 0.3 Absolute Neutrophils 5.9 Absolute Lymphocytes 2.6 Absolute Monocytes 0.7 Absolute Eosinophils 0.1 Absolute Basophils 0.0 Sodium 141.4 Potassium 4.3 Chloride 106 Carbon Dioxide 25 Anion Gap 10 BUN 17 Creatinine 0.60 Est GFR ( Amer) > 60 Est GFR (Non-Af Amer) > 60 Glucose 79 Uric Acid 6.7 H Calcium 9.6 Total Bilirubin 0.4 AST 19 ALT 18 Alkaline Phosphatase 110 Total Protein 6.2 L Albumin 3.1 L Urine Color YELLOW Urine Appearance CLOUDY Urine pH 6.0 Ur Specific Mobile 1.019 Urine Protein >=500 H Urine Glucose (UA) NEGATIVE Urine Ketones NEGATIVE Urine Blood NEGATIVE Urine Nitrite NEGATIVE Ur Leukocyte Esterase MODERATE H Urine WBC (Auto) 23 Urine RBC (Auto) 3 Assessment & Plan - Diagnosis (1) Chest pain Is this a current diagnosis for this admission?: Yes Plan: The patient reported sudden onset, nonradiating, crushing chest pain associated with orthopnea that resolved upon repositioning to a more upright sitting position. Cardiac risk factors include morbid obesity and current with preeclampsia (increasing risk for cardiomegaly). Chest x-ray is benign. EKG reveals a normal sinus rhythm without is abnormal findings. Initial troponin is negative. ProBNP is minimally elevated at 248; this likely reflects LV stress and subclinical cardiac dysfunction related to preeclampsia and hypertensive emergency. It is not suggestive of heart failure. The patient is admitted to the labor and delivery unit. We will continue to trend troponins. Echocardiogram is pending; upon reviewing results will consider cardiology consultation. I believe the chest pain to be low risk for acute coronary syndrome. It is most likely that her discomfort was related to positioning (morbid obesity, third trimester ), hypertension, and anxiety. (2) Hypertensive emergency Is this a current diagnosis for this admission?: Yes Plan: Secondary to preeclampsia. Discussed specifically with Dr. Graves; the ABA TUTOR service will manage all blood pressure needs. (3) Preeclampsia Qualifiers: Trimester: third trimester Qualified Code(s): O14.93 - Unspecified pre- eclampsia, third trimester Is this a current diagnosis for this admission?: Yes Plan: All management per ABA TUTOR service. (4) Anxiety Is this a current diagnosis for this admission?: Yes Plan: Situational and exacerbated by the one-year birthday of her child who from SIDS last year. Her anxiety may be contributing to her chest discomfort. Anxiolytics per ABA TUTOR service. (5) Obesity Qualifiers: Obesity type: unspecified obesity type Obesity classification: adult class 3 (BMI >= 40) Body mass index: BMI 45.0-49.9 Is this a current diagnosis for this admission?: Yes Plan: Dietary discretion is advised. - Time Time Spent: 50 to 70 Minutes Medications reviewed and adjusted accordingly: Yes
--- NOTE | 2018-01-31 12:07 | XCELERA REPORT ---
[address] [address] Transthoracic Echocardiogram Report Name: MAI DIAZ Age: 22 yrs Gender: Female : 1995 Patient Status: Inpatient Patient Location: [place] [address]^E Study Date: 01/31/2018 10:57 AM Procedure: A complete two-dimensional transthoracic echocardiogram was performed (2D, M-mode, spectral and color flow Doppler). The study was technically adequate with some images being suboptimal in quality. Reason For Study: Chest pain Ordering Physician: LAINE ROLON Performed By: Do Purcell Interpretation Summary The left ventricular ejection fraction is normal. There is mild concentric left ventricular hypertrophy. The left ventricle is grossly normal size. LV diastolic function could not be adequately assessed. Wall motion cannot be accurately commented on, but no definite regional wall motion abnormalities noted. The right ventricular systolic function is normal. The right atrium is normal in size The left atrial size is normal. There is no mitral valve stenosis. There is a trace to mild amount of mitral regurgitation No aortic regurgitation is present. There is no aortic valve stenosis There is no tricuspid stenosis. No tricuspid regurgitation. The aortic root is not well visualized but is probably normal size. The inferior vena cava was not well visualized Minimal pericardial effusion. MMode/2D Measurements & Calculations RVDd: 3.2 cm LVIDd: 3.6 cm FS: 35.0 % LVOT diam: 2.1 cm IVSd: 1.6 cm LVIDs: 2.4 cm EDV(Teich): 55.4 ml LVOT area: 3.5 cm2 LVPWd: 1.6 cm ESV(Teich): 19.3 ml EF(Teich): 65.2 % Doppler Measurements & Calculations MV E max elvis: MV dec slope: Ao V2 max: LV V1 max P.9 cm/sec 329.5 cm/sec2 127.8 cm/sec 4.8 mmHg MV A max elvis: MV dec time: Ao max PG: LV V1 max: 82.2 cm/sec 0.26 sec 6.5 mmHg 110.1 cm/sec MV E/A: 1.1 BRANDON(V,D): 3.0 cm2 PA V2 max: 112.9 cm/sec PA max P.3 mmHg Left Ventricle The left ventricle is grossly normal size. There is mild concentric left ventricular hypertrophy. The left ventricular ejection fraction is normal. LV diastolic function could not be adequately assessed. Wall motion cannot be accurately commented on, but no definite regional wall motion abnormalities noted. Right Ventricle The right ventricle is grossly normal size. There is normal right ventricular wall thickness. The right ventricular systolic function is normal. Atria The right atrium is normal in size. The left atrial size is normal. Interarterial septum not well visualized and not well dopplered. Cannot comment on ASD/PFO presence. Mitral Valve The mitral valve is grossly normal. There is no mitral valve stenosis. There is a trace to mild amount of mitral regurgitation. Aortic Valve The aortic valve is grossly normal. There is no aortic valve stenosis. No aortic regurgitation is present. Tricuspid Valve The tricuspid valve is not well visualized secondary to technical limitations. There is no tricuspid stenosis. No tricuspid regurgitation. Pulmonic Valve The pulmonic valve is not well visualized. Great Vessels The aortic root is not well visualized but is probably normal size. The inferior vena cava was not well visualized. Effusions Minimal pericardial effusion. : LAINE ROLON > Rossy Carmen
--- NOTE | 2018-01-31 12:23 | L&D Progress Notes ---
PROGRESS NOTES Datetime Report Generated by CPN: 01/31/2018 12:23 PROGRESS NOTE Impression: Eclampsia - Severe Plan: Continue Present Management Informed Consent Obtained: Section Delivery; Risks, Benefits and Alternatives Discussed Vital Signs : Reviewed Comment: 22yo exactly 1 year from last c/s and desiring repeat c/s. SCDs ordered. 24 hr UTP over 800mg. Severe range BPs. BMZ given at 0450. Fluid restriction ordered and Mag protocol ordered. 33+5ega will try to get to steroid complete and plan for c/s in am. Upon arrival this am pt c/o CP. IM consult ordered and Vistaril for anxiety ordered. H/o delivery 01/31/2017 with infant that 3 months later from SIDS. NICU aware of patient status. High BMI - ANesthesia aware also. FETUS A : 33.5 SIGNATURE SIGNATURE: [id number];[id number];[id number] SIGNATURE: [id number];[id number] SIGNATURE: [id number] Signature: with User ID: [email or web address]
[2018-01-31] MEDS ORDERED: DEXTROSE 40% GEL 15 GM TUBE PO PRN ×2 (12:51)
[2018-01-31] MEDS ORDERED: DEXTROSE 50%-WATER 25 GM/50 ML DISP.SYRIN IV PRN ×2 (12:51)
[2018-01-31] MEDS ORDERED: GLUCAGON,HUMAN RECOMB 1 MG INJ SUBCUT PRN (12:51)
[2018-01-31] MEDS ORDERED: MAGNESIUM SULFATE 20 GM/500 ML RTUINJ IV ONE ×2 (13:02→23:56)
[2018-01-31] MEDS ORDERED: MAGNESIUM SULFATE 4 GM/100 ML RTUPB IV ONE (13:02)
[2018-01-31] MEDS ORDERED: ACETAMINOPHEN 325 MG TABLET PO PRN (13:11)
[2018-01-31] MEDS ORDERED: ACETAMINOPHEN 325 MG TABLET ONE (13:12)
[2018-01-31] MEDS: MAGNESIUM SULFATE 20 GM/500 ML IV PRN ×2 (13:29→23:57)
[2018-01-31] MEDS ORDERED: ONDANSETRON HCL INJ/PF 4 MG/2 ML SDV IV PRN (13:42)
[2018-01-31 15:20] LABS: HEMATOCRIT 36.7 % (36.0-47.0); HEMOGLOBIN 11.8 g/dL (12.0-15.5); MEAN CORPUSCULAR HEMOGLOBIN 25.1 pg (27.0-33.4); MEAN CORPUSCULAR HGB CONC 32.2 g/dL (32.0-36.0); MEAN CORPUSCULAR VOLUME 78 fl (80-97); PLATELET COUNT 165 10^3/uL (150-450); RED BLOOD COUNT 4.71 10^6/uL (3.72-5.28); RED CELL DISTRIBUTION WIDTH 16.3 % (11.5-14.0); WHITE BLOOD COUNT 11.6 10^3/uL (4.0-10.5)
[2018-01-31 15:37] LABS: ABSOLUTE LYMPHOCYTES# (MANUAL) 1.6 10^3/uL (0.5-4.7); BASOPHILS % (MANUAL) 0 % (0-2); EOSINOPHILS % (MANUAL) 0 % (0-6); LYMPHOCYTES % (MANUAL) 12 % (13-45); METAMYELOCYTES % (MANUAL) 1 % (0); MONOCYTES % (MANUAL) 0 % (3-13); SEGMENTED NEUTROPHILS % (MAN) 85 % (42-78); TOTAL CELLS COUNTED 100
[2018-01-31 15:38] LABS: ANISOCYTOSIS 1+; HYPOCHROMASIA SLIGHT; OVALOCYTES SLIGHT; PLATELET COMMENT ADEQUATE; POIKILOCYTOSIS SLIGHT; POLYCHROMASIA SLIGHT; STOMATOCYTES SLIGHT
[2018-01-31 16:13] LABS: ALANINE AMINOTRANSFERASE 16 U/L (9-52); ALBUMIN 3.1 g/dL (3.5-5.0); ALKALINE PHOSPHATASE 126 U/L (38-126); ANION GAP 14 (5-19); ASPARTATE AMINO TRANSFERASE 22 U/L (14-36); BILIRUBIN,DIRECT 0.2 mg/dL (0.0-0.4); BILIRUBIN,TOTAL 0.6 mg/dL (0.2-1.3); BLOOD UREA NITROGEN 17 mg/dL (7-20); CALCIUM 8.7 mg/dL (8.4-10.2); CARBON DIOXIDE 17 mmol/L (22-30); CHLORIDE 106 mmol/L (98-107); GLUCOSE 106 mg/dL (75-110); LDH 678 U/L (313-618); POTASSIUM 4.8 mmol/L (3.6-5.0); SODIUM 136.5 mmol/L (137-145); TOTAL PROTEIN 5.8 g/dL (6.3-8.2); URIC ACID 7.4 mg/dL (2.5-6.2)
[2018-01-31] MEDS ORDERED: NALBUPHINE HCL INJ 10 MG/1 ML AMPULE ONE (18:25)
[2018-01-31] MEDS ORDERED: NALBUPHINE HCL INJ 10 MG/1 ML AMPULE INJ ONE (18:45)
--- NOTE | 2018-01-31 21:51 | EKG REPORT ---
SEVERITY:- NORMAL ECG - SINUS RHYTHM : Confirmed by: Jeni Pierre MD 31-Jan-2018 21:49:58
[2018-02-01] MEDS ORDERED: BETAMET ACET/BETAMET NA INJ 6 MG/1 ML ONE (04:26)
[2018-02-01] MEDS ORDERED: ONDANSETRON HCL INJ/PF 4 MG/2 ML SDV ONE ×2 (04:39→08:50)
[2018-02-01] MEDS ORDERED: BETAMET ACET/BETAMET NA INJ 6 MG/1 ML IM ONE (04:41)
[2018-02-01] MEDS: MAGNESIUM SULFATE 20 GM/500 ML IV PRN ×3 (04:50→23:00)
[2018-02-01 04:53] LABS: ABSOLUTE MONOCYTES (AUTO) 0.6 10^3/uL (0.1-1.4); ABSOLUTE NEUT (AUTO) 8.9 10^3/uL (1.7-8.2); BASOPHILS % (AUTO) 0.1 % (0-2); HEMATOCRIT 36.4 % (36.0-47.0); HEMOGLOBIN 11.6 g/dL (12.0-15.5); LYMPHOCYTES % (AUTO) 17.5 % (13-45); MEAN CORPUSCULAR HEMOGLOBIN 24.9 pg (27.0-33.4); MEAN CORPUSCULAR HGB CONC 31.9 g/dL (32.0-36.0); MEAN CORPUSCULAR VOLUME 78 fl (80-97); MONOCYTES % (AUTO) 4.9 % (3-13); PLATELET COUNT 174 10^3/uL (150-450); RED BLOOD COUNT 4.67 10^6/uL (3.72-5.28); RED CELL DISTRIBUTION WIDTH 16.4 % (11.5-14.0); SEGMENTED NEUTROPHILS % (AUTO) 77.5 % (42-78); TOTAL CELLS COUNTED % (AUTO) 100 %; WHITE BLOOD COUNT 11.5 10^3/uL (4.0-10.5)
[2018-02-01 05:17] LABS: ALANINE AMINOTRANSFERASE 24 U/L (9-52); ALKALINE PHOSPHATASE 131 U/L (38-126); ANION GAP 11 (5-19); ASPARTATE AMINO TRANSFERASE 21 U/L (14-36); BILIRUBIN,DIRECT 0.1 mg/dL (0.0-0.4); BILIRUBIN,TOTAL 0.8 mg/dL (0.2-1.3); BLOOD UREA NITROGEN 15 mg/dL (7-20); CALCIUM 7.5 mg/dL (8.4-10.2); CARBON DIOXIDE 21 mmol/L (22-30); CHLORIDE 105 mmol/L (98-107); GLUCOSE 99 mg/dL (75-110); LDH 643 U/L (313-618); POTASSIUM 4.8 mmol/L (3.6-5.0); SODIUM 136.6 mmol/L (137-145); URIC ACID 7.9 mg/dL (2.5-6.2)
[2018-02-01] MEDS ORDERED: CEFAZOLIN SODIUM 3 GM in DEXTROSE 5%-WATER 50 ML IV PRN (07:30)
[2018-02-01] MEDS ORDERED: CEFAZOLIN INJ 1 GM VIAL ONE (07:40)
[2018-02-01] MEDS ORDERED: CITRIC ACID/SODIUM CITRATE ORAL SOLN 15 ML UDCUP ONE (08:28)
[2018-02-01] MEDS ORDERED: KETOROLAC TROMETHAMINE INJ/PF 30 MG/1 ML SDV ONE ×2 (08:49→19:49)
[2018-02-01] MEDS ORDERED: OXYTOCIN 10 UNIT/ML VIAL ONE (08:49)
[2018-02-01] MEDS ORDERED: METHYLERGONOVINE MALEATE INJ/PF 0.2 MG/1 ML AMPULE ONE (08:50)
[2018-02-01] MEDS ORDERED: ACETAMINOPHEN 1,000 MG/100 ML RTUPB IV ONE (08:50)
[2018-02-01] MEDS ORDERED: EPHEDRINE SULFATE INJ 50 MG/1 ML AMPULE ONE (08:50)
[2018-02-01] MEDS ORDERED: OXYTOCIN/NORMAL SALINE 20 UNIT/1,000 ML RTUINJ ONE (08:50)
[2018-02-01] MEDS ORDERED: FENTANYL CITRATE INJ/PF 100 MCG/2 ML AMPUL ONE ×2 (08:51→10:34)
[2018-02-01] MEDS ORDERED: MIDAZOLAM 2 MG/2 ML INJ ONE (08:51)
[2018-02-01] MEDS ORDERED: BUPIVACAINE HCL/DEX-WATER/PF 15 MG/2 ML AMPULE ONE (08:53)
[2018-02-01] MEDS ORDERED: LIDOCAINE 2% INJ-PF (20 MG/ML) 10 ML AMPUL ONE (09:07)
[2018-02-01] MEDS ORDERED: PROPOFOL INJ 200 MG/20 ML VIAL IV ONE (09:27)
[2018-02-01] MEDS ORDERED: MEPERIDINE HCL/PF INJ 25 MG/1 ML DISP.SYRIN IV PRN (09:43)
[2018-02-01] MEDS ORDERED: MORPHINE SULFATE 10 MG/ML INJ IV PRN (09:43)
[2018-02-01] MEDS ORDERED: DIPHENHYDRAMINE HCL 50 MG/ML VIAL IV PRN (09:43)
[2018-02-01] MEDS ORDERED: OXYCODONE-ACETAMINOPHEN 5-325 MG TABLET PO PRN ×2 (09:43)
[2018-02-01] MEDS ORDERED: ONDANSETRON HCL INJ/PF 4 MG/2 ML SDV IV PRN (09:43)
[2018-02-01] MEDS ORDERED: PROMETHAZINE HCL INJ 25 MG/1 ML VIAL IV PRN ×2 (09:43)
[2018-02-01] MEDS ORDERED: FENTANYL CITRATE INJ/PF 100 MCG/2 ML AMPUL IV PRN ×3 (09:43)
[2018-02-01] MEDS ORDERED: MORPHINE SULFATE 10 MG/ML INJ ONE ×3 (09:45→12:42)
[2018-02-01] MEDS ORDERED: PROMETHAZINE HCL INJ 25 MG/1 ML VIAL ONE (10:33)
[2018-02-01] MEDS ORDERED: MAGNESIUM SULFATE 20 GM/500 ML RTUINJ IV ONE ×2 (10:34→22:59)
[2018-02-01] MEDS ORDERED: DIPHENHYDRAMINE HCL 50 MG/ML VIAL ONE (10:34)
[2018-02-01] MEDS ORDERED: MEPERIDINE HCL/PF INJ 25 MG/1 ML DISP.SYRIN ONE (10:34)
--- NOTE | 2018-02-01 10:41 | Operative Report ---
Operative Report DATE OF SURGERY: 02/01/18 PREOPERATIVE DIAGNOSIS: 33.6wk IUP, severe preeclampsia POSTOPERATIVE DIAGNOSIS: 33.6wk IUP, severe preeclampsia OPERATION: Repeat SURGEON: SANTINO JERONIMO TREE LOADER MEAT: CHERIE GRAVES ANESTHESIA: GA TISSUE REMOVED OR ALTERED: Placenta, cord blood COMPLICATIONS: None ESTIMATED BLOOD LOSS: 500ml INTRAOPERATIVE FINDINGS: Vertex female infant. Adhesions of anterior uterus to anterior abdominal wall. Omentum adhesed to anterior peritoneum. PROCEDURE: PREOPERATIVE DIAGNOSIS: undelivered at [] weeks POSTOPERATIVE DIAGNOSIS: Same as above delivered Procedure: section low transverse Piped Pocket Machine Operator:[None] Anesthesia: Spinal Anesthesia provider: [] Estimated blood loss: 500ml ] Urine output: [] IV fluids: [] Complications: [None] Specimens: [None] Findings: [] Indications: [] Procedure: The patient was taken to the operating room where spinal anesthesia was obtained and found to be inadequate. She was then prepped and draped in the normal sterile fashion and placed in the dorsal supine position with a leftward tilt. She was placed under general anesthesia. A Pfannenstiel skin incision was then made and carried through to the underlying layers of the fascia with the scalpel. The fascia was incised in the midline and the incision extended laterally with the Rincon scissors. The superior aspect of the fascial incision was then grasped with Kimani clamps elevated and the underlying rectus muscles dissected off sharply. Omentum was seen at an opening in the fascia and the incision was extended inferiorly with Rincon scissors. The peritoneal incision was then extended superiorly and inferiorly with good visualization of the bladder. The bladder blade was inserted and the vesicouterine peritoneum identified grasped with [place]raini pickups and entered sharply with the Metzenbaum scissors. This incision was then extended laterally with the Metzenbaum scissors and a bladder flap created digitally. The bladder blade was then reinserted. A peritoneal window was identified and the lower uterine segment incised in a transverse fashion with the scalpel. The uterine incision was then extended bluntly. The membranes were ruptured with an Allis clamp. The bladder blade was removed and the 's head was delivered from cephalic presentation atraumatically. Nuchal x 1 reduced and the cord doubly clamped and cut. And the was handed off to waiting pediatricians. The placenta was then delivered spontaneously and the uterus exteriorized and cleared of all clots and debris. The uterine incision was then repaired with 0 Monocryl in a running locked fashion. The uterus was returned to the patient's abdomen. The gutters were cleared of all clots and debris. All operative sites were noted to be hemostatic. The fascia was reapproximated with 0 PDS in a running fashion from each lateral edge to the midline. The subcutaneous tissue was closed with 0 Vicryl. The skin was closed with dinora. The patient tolerated the procedure well. Sponge lap needle and instrument counts are correct. The patient was taken to the recovery area awake and in stable condition.
[2018-02-01] MEDS ORDERED: ACETAMINOPHEN 1,000 MG/100 ML RTUPB IV PRN (10:42)
[2018-02-01] MEDS ORDERED: OXYTOCIN/NORMAL SALINE 20 UNIT/1,000 ML RTUINJ IV PRN (10:42)
[2018-02-01] MEDS ORDERED: DIPH/PERTUSS(ACELL)/TETANUS VAC/PF 0.5 ML SYR (>=10YO) IM PRN (10:42)
[2018-02-01] MEDS ORDERED: MEASLES,MUMPS&RUBELLA VACC/PF 0.5 ML VIAL SUBCUT PRN (10:42)
[2018-02-01] MEDS ORDERED: MORPHINE SULFATE 10 MG/ML INJ IV ONE (10:51)
[2018-02-01] MEDS ORDERED: MORPHINE SULFATE 60 MG/60 ML RTUINJ IV PRN (11:21)
[2018-02-01] MEDS ORDERED: MORPHINE SULFATE 60 MG/60 ML RTUINJ IV ONE (12:07)
[2018-02-01] MEDS: KETOROLAC TROMETHAMINE INJ/PF 30 MG/1 ML SDV IV SCH ×2 (13:02→19:53)
--- NOTE | 2018-02-01 19:41 | PDOC PROGRESS REPORT ---
Subjective Progress Note for:: 02/01/18 Subjective:: The patient is a 22-year-old female with past medical history significant for obesity, depression with anxiety, frequent UTIs who was admitted on 01/31/18 by the CUB REPORTER service for preeclampsia in a patient who is 35+5 weeks gestation. The hospitalist service was consulted for chest pain. Patient is seen on morning rounds with her family members present. She is resting in bed comfortably on supplemental oxygen 2 L/min. She denies any further occurrences of chest pain, orthopnea, dyspnea. Patient and family have no further questions or concerns at this time. Nursing has no concerns. Reason For Visit: Physical Exam Vital Signs: Temp Pulse Resp BP Pulse Ox 16 94 02/01/18 19:00 02/01/18 19:00 Intake & Output 01/31/18 02/01/18 02/02/18 06:59 06:59 06:59 Weight 123.9 kg General appearance: PRESENT: no acute distress, morbidly obese, well-developed, well-nourished Head exam: PRESENT: atraumatic, normocephalic Eye exam: PRESENT: conjunctiva pink, EOMI, PERRLA. ABSENT: scleral icterus Ear exam: PRESENT: normal external ear exam Mouth exam: PRESENT: moist, tongue midline Neck exam: ABSENT: carotid bruit, JVD, lymphadenopathy, thyromegaly Respiratory exam: PRESENT: clear to auscultation reji, symmetrical, unlabored. ABSENT: rales, rhonchi, wheezes Cardiovascular exam: PRESENT: gallop, RRR. ABSENT: diastolic murmur, rubs, systolic murmur Pulses: PRESENT: normal dorsalis pedis pul Vascular exam: PRESENT: normal capillary refill GI/Abdominal exam: PRESENT: normal bowel sounds, soft. ABSENT: distended, guarding, mass, organolmegaly, rebound, tenderness Rectal exam: PRESENT: deferred Extremities exam: PRESENT: full ROM. ABSENT: calf tenderness, clubbing, pedal edema Neurological exam: PRESENT: alert, awake, oriented to person, oriented to place , oriented to time, oriented to situation, CN II-XII grossly intact. ABSENT: motor sensory deficit Psychiatric exam: PRESENT: appropriate affect, normal mood. ABSENT: homicidal ideation, suicidal ideation Skin exam: PRESENT: dry, intact, warm. ABSENT: cyanosis, rash Results Laboratory Results: 02/01/18 04:28 02/01/18 04:28 02/01/18 02/01/18 04:28 04:28 WBC 11.5 H RBC 4.67 Hgb 11.6 L Hct 36.4 MCV 78 L MCH 24.9 L MCHC 31.9 L RDW 16.4 H Plt Count 174 Seg Neutrophils % 77.5 Lymphocytes % 17.5 Monocytes % 4.9 Eosinophils % 0.0 Basophils % 0.1 Absolute Neutrophils 8.9 H Absolute Lymphocytes 2.0 Absolute Monocytes 0.6 Absolute Eosinophils 0.0 Absolute Basophils 0.0 Sodium 136.6 L Potassium 4.8 Chloride 105 Carbon Dioxide 21 L Anion Gap 11 BUN 15 Creatinine 0.58 Est GFR ( Amer) > 60 Est GFR (Non-Af Amer) > 60 Glucose 99 Uric Acid 7.9 H Calcium 7.5 L Total Bilirubin 0.8 AST 21 ALT 24 Alkaline Phosphatase 131 H Total Protein 6.0 L Albumin 3.0 L 01/31/18 01/31/18 01/31/18 08:59 14:33 21:19 Troponin I < 0.012 < 0.012 < 0.012 NT-Pro-B Natriuret Pep 248 H Impressions: Chest X-Ray 01/31/18 00:00 IMPRESSION: NO ACUTE RADIOGRAPHIC FINDING IN THE CHEST. Assessment & Plan - Diagnosis (1) Chest pain Is this a current diagnosis for this admission?: Yes Plan: The patient reported sudden onset, nonradiating, crushing chest pain associated with orthopnea that resolved upon repositioning to a more upright sitting position. Cardiac risk factors include morbid obesity and current with preeclampsia (increasing risk for cardiomegaly). Chest x-ray is benign. EKG reveals a normal sinus rhythm without is abnormal findings. Serial troponins are negative 3 ProBNP is minimally elevated at 248; this likely reflects LV stress and subclinical cardiac dysfunction related to preeclampsia and hypertensive emergency. It is not suggestive of heart failure. Echocardiogram is benign; mild LVH (likely a normal physiological response to ), normal LVEF. The patient is admitted to the labor and delivery unit. I believe the chest pain to be low risk for acute coronary syndrome. It is most likely that her discomfort was related to positioning (morbid obesity, third trimester ), hypertension, and anxiety. In patient with low risk factors for acute coronary syndrome; do not believe that the patient requires stress testing at this time. She is advised to report any future episodes of chest discomfort or dyspnea to her health care providers. At this time will sign off; thank you for allowing us to participate in the care of this patient. Please reconsult if any further assistance can be provided. (2) Hypertensive emergency Is this a current diagnosis for this admission?: Yes Plan: Secondary to preeclampsia. Discussed specifically with Dr. Luis; the CUB REPORTER service will manage all blood pressure needs. (3) Preeclampsia Qualifiers: Trimester: third trimester Qualified Code(s): O14.93 - Unspecified pre- eclampsia, third trimester Is this a current diagnosis for this admission?: Yes Plan: All management per CUB REPORTER service. (4) Anxiety Is this a current diagnosis for this admission?: Yes Plan: Situational and exacerbated by the one-year birthday of her child who from SIDS last year. Her anxiety may be contributing to her chest discomfort. Anxiolytics per CUB REPORTER service. (5) Obesity Qualifiers: Obesity type: unspecified obesity type Obesity classification: adult class 3 (BMI >= 40) Body mass index: BMI 45.0-49.9 Is this a current diagnosis for this admission?: Yes Plan: Dietary discretion is advised. - Time Time Spent with patient: Less than 15 minutes Medications reviewed and adjusted accordingly: Yes
[2018-02-02] MEDS ORDERED: KETOROLAC TROMETHAMINE INJ/PF 30 MG/1 ML SDV ONE (03:59)
[2018-02-02] MEDS: KETOROLAC TROMETHAMINE INJ/PF 30 MG/1 ML SDV IV SCH (04:02)
[2018-02-02 07:10] LABS: HEMATOCRIT 31.2 % (36.0-47.0); HEMOGLOBIN 10.1 g/dL (12.0-15.5); MEAN CORPUSCULAR HEMOGLOBIN 25.3 pg (27.0-33.4); MEAN CORPUSCULAR HGB CONC 32.2 g/dL (32.0-36.0); MEAN CORPUSCULAR VOLUME 78 fl (80-97); PLATELET COUNT 158 10^3/uL (150-450); RED BLOOD COUNT 3.99 10^6/uL (3.72-5.28); RED CELL DISTRIBUTION WIDTH 16.6 % (11.5-14.0); WHITE BLOOD COUNT 16.3 10^3/uL (4.0-10.5)
[2018-02-02] MEDS ORDERED: SIMETHICONE 80 MG TAB.CHEW PO PRN (08:41)
[2018-02-02] MEDS ORDERED: OXYCODONE-ACETAMINOPHEN 5-325 MG TABLET PO PRN (08:41)
[2018-02-02] MEDS ORDERED: NIFEDIPINE 30 MG TAB.ER.24 PO ONE (09:47)
[2018-02-02] MEDS ORDERED: OXYCODONE-ACETAMINOPHEN 5-325 MG TABLET ONE (09:48)
[2018-02-02] MEDS ORDERED: SERTRALINE HCL 50 MG TABLET ONE (09:51)
[2018-02-02] MEDS ORDERED: PRENATAL VITAMIN W DHA CAPSULE PO ONE (09:51)
[2018-02-02] MEDS ORDERED: DOCUSATE SODIUM 100 MG CAPSULE ONE (09:51)
[2018-02-02] MEDS: DOCUSATE SODIUM 100 MG CAPSULE PO SCH ×2 (09:52→18:41)
[2018-02-02] MEDS: PRENATAL VITAMIN W DHA CAPSULE PO SCH (09:52)
[2018-02-02] MEDS: OXYCODONE-ACETAMINOPHEN 5-325 MG TABLET PO PRN ×3 (09:53→18:42)
[2018-02-02] MEDS: SERTRALINE HCL 50 MG TABLET PO SCH (09:54)
[2018-02-02] MEDS: NIFEDIPINE 30 MG TAB.ER.24 PO SCH (09:54)
[2018-02-02] MEDS ORDERED: DIPHENHYDRAMINE HCL 25 MG CAPSULE PO PRN (10:53)
[2018-02-02] MEDS: IBUPROFEN 800 MG TABLET PO SCH ×2 (13:38→18:42)
[2018-02-03] MEDS: IBUPROFEN 800 MG TABLET PO SCH ×4 (00:23→17:34)
[2018-02-03] MEDS: OXYCODONE-ACETAMINOPHEN 5-325 MG TABLET PO PRN ×2 (04:24→13:37)
[2018-02-03 07:04] LABS: HEMATOCRIT 28.8 % (36.0-47.0); HEMOGLOBIN 9.2 g/dL (12.0-15.5); MEAN CORPUSCULAR HEMOGLOBIN 25.3 pg (27.0-33.4); MEAN CORPUSCULAR HGB CONC 31.9 g/dL (32.0-36.0); MEAN CORPUSCULAR VOLUME 79 fl (80-97); PLATELET COUNT 101 10^3/uL (150-450); RED BLOOD COUNT 3.63 10^6/uL (3.72-5.28); RED CELL DISTRIBUTION WIDTH 17.1 % (11.5-14.0); WHITE BLOOD COUNT 11.5 10^3/uL (4.0-10.5)
[2018-02-03] MEDS: DOCUSATE SODIUM 100 MG CAPSULE PO SCH ×2 (10:04→17:34)
[2018-02-03] MEDS: PRENATAL VITAMIN W DHA CAPSULE PO SCH (10:04)
[2018-02-03] MEDS: SERTRALINE HCL 50 MG TABLET PO SCH (10:04)
[2018-02-03] MEDS: NIFEDIPINE 30 MG TAB.ER.24 PO SCH (10:04)
--- NOTE | 2018-02-03 10:13 | PDOC PROGRESS REPORT ---
Subjective-OB Progress Note for:: 02/03/18 Subjective: Doing well, no c/o, pain under control, denies pre-E symptoms, bottle feeding, baby in NICU and doing well, passing gas, eating well, ambulating Physical Exam (OB) Vital Signs: Temp Pulse Resp BP Pulse Ox 98.4 F 79 18 144/92 H 96 02/03/18 08:25 02/03/18 08:25 02/03/18 08:25 02/03/18 08:25 02/03/18 08:25 - PIH/Pre-Eclampsia DTR's: 2 + Clonus: Negative Headache: Absent Epigastric Pain: No Visual Changes: No - Dressing Removed: Yes Incision: Open Closure Type: Chandan - Bilateral Tubal Ligation Dressing Removed: No - Lochia Lochia Amount: Small 10-25 ml Lochia Color: Rubra/Red - Abdomen Description: Soft, Flat Hernia Present: No Fundal Description: Firm, Midline Fundal Height: u/u - u/2 Objective-Diagnostic Laboratory: 02/03/18 06:35 02/01/18 04:28 02/03/18 06:35 WBC 11.5 H RBC 3.63 L Hgb 9.2 L Hct 28.8 L MCV 79 L MCH 25.3 L MCHC 31.9 L RDW 17.1 H Plt Count 101 L 01/31/18 13:48 Vaginal/Anorectal Group B Streptococcus Culture - Final NO GROUP B STREPTOCOCCUS RECOVERED 01/31/18 01/31/18 01/31/18 08:59 14:33 21:19 Troponin I < 0.012 < 0.012 < 0.012 NT-Pro-B Natriuret Pep 248 H Assessment and Plan(PN) - Assessment and Plan (1) S/P repeat low transverse Is this a current diagnosis for this admission?: Yes (2) Hypertensive emergency Is this a current diagnosis for this admission?: Yes (3) Preeclampsia Qualifiers: Trimester: third trimester Qualified Code(s): O14.93 - Unspecified pre- eclampsia, third trimester Is this a current diagnosis for this admission?: Yes (4) Anxiety Is this a current diagnosis for this admission?: Yes (5) Chest pain Qualifiers: Chest pain type: unspecified Qualified Code(s): R07.9 - Chest pain, unspecified Is this a current diagnosis for this admission?: Yes (6) Depression affecting Is this a current diagnosis for this admission?: Yes (7) Obesity Qualifiers: Obesity type: unspecified obesity type Obesity classification: adult class 3 (BMI >= 40) Body mass index: BMI 45.0-49.9 Is this a current diagnosis for this admission?: Yes - Time Spent with Patient Time with patient: Less than 15 minutes Medications reviewed and adjusted accordingly: Yes - Disposition Anticipated Discharge: Home Within: within 24 hours
[2018-02-03 12:37] LABS: HEPATITIS C VIRUS AB <0.1 s/co ratio (0.0-0.9)
[2018-02-04] MEDS: IBUPROFEN 800 MG TABLET PO SCH ×4 (00:36→18:10)
[2018-02-04] MEDS ORDERED: NIFEDIPINE 30 MG TAB.ER.24 PO ONE (07:00)
[2018-02-04] MEDS: DOCUSATE SODIUM 100 MG CAPSULE PO SCH ×2 (09:18→18:10)
[2018-02-04] MEDS: SERTRALINE HCL 50 MG TABLET PO SCH (09:18)
[2018-02-04] MEDS: PRENATAL VITAMIN W DHA CAPSULE PO SCH (09:18)
--- NOTE | 2018-02-04 10:38 | PDOC PROGRESS REPORT ---
Subjective-OB Progress Note for:: 02/04/18 Subjective: Pt is day 3 s/p r c/s for pre-eclampsia Pt has significant anxiety about d/c home, concerned about elevated bp this morning, desires d/c home tomorrow, wants to stay with baby, denies headache, visual disturbances, and epigastric pain, lochia is stable, pain controlled with meds, passing gas, tolerating diet. Physical Exam (OB) Vital Signs: Temp Pulse Resp BP Pulse Ox 98.2 F 75 14 164/103 H 98 02/04/18 04:00 02/04/18 04:00 02/04/18 04:00 02/04/18 04:00 02/04/18 04:00 Intake & Output 02/03/18 02/04/18 02/05/18 06:59 06:59 06:59 Intake Total 700 Balance 700 - PIH/Pre-Eclampsia DTR's: 2 + Clonus: Negative Headache: Absent Epigastric Pain: No Visual Changes: No - Dressing Removed: Yes Incision: Well Approximated Closure Type: [place] - Lochia Lochia Amount: Scant < 10 ml Lochia Color: Rubra/Red - Abdomen Description: Tender, Soft, Round Hernia Present: No Fundal Description: Firm, Midline Fundal Height: u/u - u/2 Objective-Diagnostic Laboratory: 02/03/18 06:35 02/01/18 04:28 01/31/18 01/31/18 01/31/18 08:59 14:33 21:19 Troponin I < 0.012 < 0.012 < 0.012 NT-Pro-B Natriuret Pep 248 H Assessment and Plan(PN) - Assessment and Plan (1) Anxiety Is this a current diagnosis for this admission?: Yes Plan: psych consult (2) Chest pain Qualifiers: Chest pain type: unspecified Qualified Code(s): R07.9 - Chest pain, unspecified Is this a current diagnosis for this admission?: Yes Plan: acute cardiac issues ruled out by hospitalist (3) Depression affecting Is this a current diagnosis for this admission?: Yes Plan: psych consult close pp f/u (4) Hypertension affecting , antepartum Is this a current diagnosis for this admission?: Yes Plan: continue to monitor bp anticipate d/c home tomorrow (5) Hypertensive emergency Is this a current diagnosis for this admission?: Yes (6) Preeclampsia Qualifiers: Trimester: third trimester Qualified Code(s): O14.93 - Unspecified pre- eclampsia, third trimester Is this a current diagnosis for this admission?: Yes Plan: close f/u (7) S/P repeat low transverse Is this a current diagnosis for this admission?: Yes (8) Obesity Qualifiers: Obesity type: unspecified obesity type Obesity classification: adult class 3 (BMI >= 40) Body mass index: BMI 45.0-49.9 Is this a current diagnosis for this admission?: Yes Plan: plan for diet and exercise pp - Time Spent with Patient Time with patient: Less than 15 minutes Critical Time spent with patient: Less than 15 minutes Medications reviewed and adjusted accordingly: Yes - Disposition Anticipated Discharge: Home Within: within 24 hours
[2018-02-04] MEDS: OXYCODONE-ACETAMINOPHEN 5-325 MG TABLET PO PRN (19:10)
[2018-02-05] MEDS: IBUPROFEN 800 MG TABLET PO SCH ×4 (00:12→18:30)
[2018-02-05] MEDS: SERTRALINE HCL 50 MG TABLET PO SCH (09:28)
[2018-02-05] MEDS: PRENATAL VITAMIN W DHA CAPSULE PO SCH (09:28)
[2018-02-05] MEDS: DOCUSATE SODIUM 100 MG CAPSULE PO SCH ×2 (09:28→18:30)
[2018-02-05] MEDS ORDERED: NIFEDIPINE 30 MG TAB.ER.24 PO SCH (10:00)
--- NOTE | 2018-02-05 11:32 | PSYCHOLOGICAL NOTE ---
Psych Note - Psych Note Psych Note: Reason for consult; Anxiety MAI DIAZ is a 22 year old female with a past medical history significant for obesity, depression with anxiety, frequent UTIs who was admitted by the OB/ [facility] service for preeclampsia and patient who is 35+5 gestation. It is currently the one-year birthday of her child who from SIDS last year. Patient disclosed she arrived to [facility] because of chest pain. She disclosed that she thinks that she had been very anxious because it was the one-year anniversary of the of her baby boy of SIDS when he was approximately 3 months old. She continued disclosed that she was having a lot of anxiety surrounding her however since giving she feels that all of that has lifted. She did reports she no longer feels anxious and openly engages with clinician about things that she has done to deal with her grief and supports she uses; she belongs to an online support network of parents that have lost children to SIDS. She discloses some mild anxiety about when the baby will come home but currently does not feel overly anxious. She agrees to contact her support network online to talk with other mothers that have had children after losing a baby to SIDS. Patient reports that she was on Vistaril as a home medication because she was told it was safe to take while . She confirms she still has this medication. Patient is alert and orientated to person, place, time and circumstance. Mood is euthymic with congruent affect. No psychomotor agitation is noted patient is calmly sitting in bed and openly engages with clinician. Patient denies suicidal and homicidal ideation. Delusions are absent behaviors congruent with intact reality based presentation i.e. organized and linear thought process. Eye contact was well-maintained. Conversational speech is within normal rate, tone and prosody. Intellectual abilities appear to be within the average range. Attention and concentration were good. Insight, judgment, impulse control are good. No medication or conditions at this time 300.00 (F41.9) unspecified anxiety disorder per history provided by patient Impression\plan: Patient is cleared from acute psychiatric services. Patient does not meet IVC criteria per [place] GS 122C. Patient discloses anxiety stemming from both the anniversary of her son's 1 year ago in addition to having a new baby. She reports feeling much better now that she is given , she admits to possible increased anxiety at the thought of going home; currently she is calm, no psychomotor agitation, openly engages with clinician. Patient reports of having strong support network which includes an online support group for parents that have lost children to SIDS. Patient is also prescribed Vistaril for anxiety. Is recommended patient uses established support networks in addition to obtaining outpatient mental health therapy to continue processing her anxiety triggers and coping mechanisms. Dr. Rice was consulted and the care management this patient.
--- NOTE | 2018-02-05 12:57 | PDOC DISCHARGE SUMMARY ---
Final Diagnosis Discharge Date: 02/05/18 - Final Diagnosis (1) Placental abruption Is this a current diagnosis for this admission?: Yes (2) S/P repeat low transverse Is this a current diagnosis for this admission?: Yes (3) Hypertensive emergency Is this a current diagnosis for this admission?: Yes (4) Preeclampsia Is this a current diagnosis for this admission?: Yes (5) Anxiety Is this a current diagnosis for this admission?: Yes (6) Chest pain Is this a current diagnosis for this admission?: Yes (7) Depression affecting Is this a current diagnosis for this admission?: Yes (8) Hypertension affecting , antepartum Is this a current diagnosis for this admission?: Yes (9) Obesity Is this a current diagnosis for this admission?: Yes Discharge Data - Discharge Medication Prescriptions: Acetaminophen [Tylenol 325 mg Tablet] 650 mg PO Q4HP PRN #90 tablet PRN Reason: Abdominal Cramping Oxycodone HCl/Acetaminophen [Percocet 5-325 mg Tablet] 1 tab PO Q4HP PRN #30 tablet PRN Reason: Hydroxyzine Pamoate [Vistaril 50 mg Capsule] 50 mg PO Q8HP PRN #120 capsule PRN Reason: Docusate Sodium [Colace 100 mg Capsule] 100 mg PO BID #60 capsule Nifedipine [Procardia XL 30 mg Tablet] 30 mg PO DAILY #60 tab.er.24 Sertraline HCl [Zoloft 50 mg Tablet] 50 mg PO DAILY #60 tablet Home Medications: Vit/Iron Fum/Folic AC [ Tablet] 1 each PO DAILY 01/27/17 Acetaminophen [Tylenol 325 mg Tablet] 650 mg PO Q4HP PRN #90 tablet 02/05/18 Docusate Sodium [Colace 100 mg Capsule] 100 mg PO BID #60 capsule 02/05/18 Hydroxyzine Pamoate [Vistaril 50 mg Capsule] 50 mg PO Q8HP PRN #120 capsule Nifedipine [Procardia XL 30 mg Tablet] 30 mg PO DAILY #60 tab.er.24 02/05/18 Oxycodone HCl/Acetaminophen [Percocet 5-325 mg Tablet] 1 tab PO Q4HP PRN #30 tablet 02/05/18 Sertraline HCl [Zoloft 50 mg Tablet] 50 mg PO DAILY #60 tablet 02/05/18 Reason(s) for Admission: Ceasarean Section-Repeat Procedures: Ultrasound Intrapartum Procedure(s): : Low Cervical, Transverse - Diagnosis Test Laboratory: Temp Pulse Resp BP Pulse Ox 98.0 F 70 18 148/99 H 99 02/05/18 05:07 02/05/18 05:07 02/05/18 05:07 02/05/18 05:07 02/05/18 05:07 01/31/18 01/31/18 01/31/18 00:59 01:36 08:59 RBC 4.50 4.74 Hgb 11.4 L 11.9 L Hct 34.9 L 36.6 Urine Opiates Screen NEGATIVE 01/31/18 02/01/18 02/02/18 14:33 04:28 06:55 RBC 4.71 4.67 3.99 Hgb 11.8 L 11.6 L 10.1 L Hct 36.7 36.4 31.2 L Urine Opiates Screen 02/03/18 06:35 RBC 3.63 L Hgb 9.2 L Hct 28.8 L Urine Opiates Screen - Discharge information/Instructions Discharge Activity: Activity As Tolerated, Balance Activity w/Rest, No Driving, No Lifting Over 10 Pounds, No Lifting/Push/Pulling, Pelvic Rest, No tub bath, Walk Frequently Discharge Diet: As Tolerated, Regular Disposition: HOME, SELF-CARE Follow up with: [facility] in: 2, Days - bp check
[2018-02-05 17:26] VITALS: BP 145/94
--- NOTE | 2018-02-24 14:50 | Delivery Summary ---
Del Sum A-C Datetime Report Generated by CPN: 02/24/2018 14:50 DELIVERY PERSONNEL DELIVERY PERSONNEL: [id number] Delivery Doctor:: Kenroy Fermin MD Anesthesiologist:: Shayla White MD CLEARING TUB WORKER:: Cleopatra Peterson CRNA Radio Aerial Installer:: Liudmila Looney RN Food Processing Scientist:: Dr. Cruzito English Nursery Nurse:: Yoly Coronado RN Nursery Nurse:: Debi Marx RN R And D Lab Technician/STONE CARRIAGE OPERATOR: Faby Martinez CST R And D Lab Technician/STONE CARRIAGE OPERATOR: Nora Moulton, st MATERNAL INFORMATION Delivery Anesthesia: General Medications After Delivery: Pitocin Bolus-Please Comment Maternal Complications: Other Complication Details: Preeclampsia LABOR SUMMARY EDC: 03/16/2018 00:00 No. Babies in Womb: 1 Attempted: No Labor Anesthesia: None LABOR INFORMATION Reason for Induction: Not Applicable Oxytocin: N/A Group B Beta Strep: 1 NO GROUP B STREPTOCOCCUS RECOVERED Group B Beta Strep: unknown Antibiotics # of Doses: 0 Steroids Given: Full Course; > 24 Hours before Delivery Reason Steroids Not Administered: Indication MEMBRANES Membranes Rupture Method: Artificial Rupture of Membranes: 02/01/2018 09:29 Length of Rupture (hr): 0.02 Amniotic Fluid Color: Clear Amniotic Fluid Amount: Moderate Amniotic Fluid Odor: Normal STAGES OF LABOR Stage 3 hr: 0 Stage 3 min: 1 VAGINAL DELIVERY Episiotomy: None Laceration #1: None Laceration Extension #1: N/A Laceration Repair: Not Applicable Sponge Count Correct: N/A CSECTION DELIVERY Primary Indication: Other Other Primary Indication: Severe preeclampsia Secondary Indication: Repeat Elective CSection Urgency: Non-Scheduled CSection Incidence: Repeat Labor: No Labor Elective: Nonelective CSection Incision: Lower Uterine Transverse BABY A INFORMATION Delivery Date/Time: 02/01/2018 09:30 Method of Delivery: Born in Route : No : N/A Forceps: N/A Vacuum Extraction: N/A Shoulder Dystocia : No PRESENTATION/POSITION BABY A Presentation: Cephalic Cephalic Presentation: Vertex Vertex Position: Left Occipital Anterior Breech Presentation: N/A PLACENTA INFORMATION BABY A Placenta Delivery Time : 02/01/2018 09:31 Placenta Method of Delivery: Manual Removal Placenta Status: Delivered SCORES BABY A Heart Rate 1 min: >100 bpm Resp Effort 1 min: Good Cry Reflex Irritability 1 min: Cough or Sneeze or Pulls Away Muscle Tone 1 min: Some Flexion of Extremities Color 1 min: Body Colstrip, Extremities Blue Resuscitation Effort 1 min: Tactile Stimulation SCORE 1 MIN: 8 Heart Rate 5 min: >100 bpm Resp Effort 5 min: Good Cry Reflex Irritability 5 min: Cough or Sneeze or Pulls Away Muscle Tone 5 min: Some Flexion of Extremities Color 5 min: Body Colstrip, Extremities Blue Resuscitation Effort 5 min: Tactile Stimulation SCORE 5 MIN: 8 INFANT INFORMATION BABY A Gestational Age at Delivery: 33.6 Gestational Status: - <34 Weeks Infant Outcome : Liveborn Infant Condition : Stable Sex: Female WEIGHT/LENGTH BABY A Birthweight (gm): 1814 Infant Weight (lb): 4 Weight (oz): 0 Infant Length (in): 17.75 Infant Length (cm): 45.09 CORD INFORMATION BABY A No. Cord Vessels: 3 Nuchal Cord : N/A Cord Blood Taken: Yes-For Storage (Mom's Blood type +) Infant Suction: Mouth; Nose ASSESSMENT BABY A Complications: Other Infant Complications- Other: Late Physical Findings at Delivery: Within Normal Limits Respirations: Appears Normal Skin to Skin: No Food Processing Scientist/ALS Called : Yes Infant Care By: Dr. English/Stephanie Marx RN Transferred To: NICU BABY B INFORMATION : N/A SIGNATURES Signature: with User ID: [email or web address] : Tanner was personally available for consultation and serving as supervising physician for the MLP.
== END 2018-02-05 18:38 | disposition home or self-care (01) | DRG 765 ==
LOC: LC 00:24 → LR 02:21 → UNDOADMOB 02:58 → LR 02:58 → INTOOBSV 02:58 → OBSVTOIN 02:58 → LR 02-01 09:04 → 2S 02-02 10:45 → LR 02-02 10:45 → UNDODISIN 02-05 18:38
PROVIDERS: ADMIT Obstetrics & Gynecology; ATTEND Obstetrics & Gynecology
PROC: 4A1HXCZ Monitoring of Products of Conception, Cardiac Rate, External Approach (ICD-10-PCS; 2018-01-31)
PROC: 10D00Z1 Extraction of Products of Conception, Low, Open Approach (ICD-10-PCS; principal; 2018-02-01)
PROC: 10907ZC Drainage of Amniotic Fluid, Therapeutic from Products of Conception, Via Natural or Artificial Opening (ICD-10-PCS; 2018-02-01)
DX: O45.93 Premature separation of placenta, unspecified, third trimester (principal); O60.14X0 Preterm labor third trimester with preterm delivery third trimester, not applicable or unspecified; Z68.42 Body mass index [BMI] 45.0-49.9, adult; O14.14 Severe pre-eclampsia complicating childbirth; O99.344 Other mental disorders complicating childbirth; F32.9 Major depressive disorder, single episode, unspecified; E66.01 Morbid (severe) obesity due to excess calories; O99.214 Obesity complicating childbirth; F41.1 Generalized anxiety disorder; O69.81X0 Labor and delivery complicated by cord around neck, without compression, not applicable or unspecified; L40.9 Psoriasis, unspecified; O99.824 Streptococcus B carrier state complicating childbirth; Z99.81 Dependence on supplemental oxygen; Z82.49 Family history of ischemic heart disease and other diseases of the circulatory system; Z82.3 Family history of stroke; Z83.3 Family history of diabetes mellitus; Z3A.33 33 weeks gestation of pregnancy; Z37.0 Single live birth
CPT/HCPCS: 1961; 36415; 59025; 71045; 80053; 80307; 81001; 82570; 83615; 83880; 84156; 84484; 84550; 85025; 85027; 86803; 86804; 86850; 86900; 86901; 87081; 88307; 93005; 93010; 93306; 94760; 94799; 96372; J0131; J0360; J0690; J0702; J1200; J1885; J2175; J2210; J2250; J2270; J2300; J2405; J2550; J2590; J2704; J3010; J3475; J3490

== ENCOUNTER 2018-05-19 22:15 | Observation (INO) | payer MEDICAID ==
[2018-05-19] MEDS ORDERED: PROCHLORPERAZINE EDISYLATE INJ 10 MG/2 ML VIAL IV ONE (23:45)
[2018-05-19] MEDS ORDERED: DIPHENHYDRAMINE HCL 50 MG/ML VIAL IV ONE (23:45)
[2018-05-19] MEDS ORDERED: KETOROLAC TROMETHAMINE INJ/PF 30 MG/1 ML SDV IV ONE (23:46)
--- NOTE | 2018-05-19 23:46 | ER Document Report ---
ED Medical Screen (RME) - General Chief Complaint: Nausea/Vomiting Stated Complaint: VOMITING/ABDOMINAL PAIN Time Seen by Provider: 05/19/18 23:45 Mode of Arrival: Ambulatory Information source: Patient Notes: Patient is a 22-year-old female presenting to the emergency department complaining of nausea and a headache onset today. Patient states that she had a headache which she describes as a migraine onset this morning and as tried sleeping, drinking coffee and water in attempt to alleviate her headache which she states provided no relief. Patient states she began to vomit tonight around 9 PM after she ate dinner. She also mentions having a infection of her incisional wound after a that she is currently taking antibiotics needing ointment on. She beleives this may be the reason for her headache and vomiting Patient states that she was prescribed Keflex and fluconazole. Patient denies any fevers. Patient states that her current migraine is similar to her previous migraines in the past. GENERAL: Alert, interacts well. No acute distress. HEAD: Normocephalic, Atraumatic. NECK: Full range of motion. Supple. Trachea midline. LUNGS: No respiratory distress. ABDOMEN: Soft, non-tender. Non-distended. Beefy-red rash consistent with Lilian under the patient's pannus along horizontal open incision, no active drainage, no purrlent discharge. EXTREMITIES: Moves all four extremities spontaneously. PSYCH: Normal affect, normal mood. I have greeted and performed a rapid initial assessment of this patient. A comprehensive ED assessment and evaluation of the patient, analysis of test results and completion of the medical decision making process will be conducted by additional ED providers. TRAVEL OUTSIDE OF THE [place] IN LAST 30 DAYS: No - Related Data Allergies/Adverse Reactions: No Known Allergies Allergy (Verified 01/28/18 14:55) Past Medical History - General Information source: Patient - Social History Family history: Reviewed & Not Pertinent Renal/ Medical History: Reports: Hx Ovarian Cysts Skin Medical History: Reports Hx Psoriasis Psychiatric Medical History: Reports: Hx Depression Past Surgical History: Reports: Hx Section - 01/31/2017, Hx Oral Surgery - ear surg x3, wisdom teeth, Other - Ears; cholesteatoma removal - Immunizations Hx Diphtheria, Pertussis, Tetanus Vaccination: Yes Physical Exam - Vital signs Vitals: Temp Pulse Resp BP Pulse Ox 97.9 F 81 18 117/68 99 05/19/18 22:54 05/19/18 22:54 05/19/18 22:54 05/19/18 22:54 05/19/18 22:54 Course - Vital Signs Vital signs: Temp Pulse Resp BP Pulse Ox 97.9 F 81 18 117/68 99 05/19/18 22:54 05/19/18 22:54 05/19/18 22:54 05/19/18 22:54 05/19/18 22:54 Doctor's Discharge - Discharge
[2018-05-19] MEDS ORDERED: NORMAL SALINE 1000 ML 1,000 ML IV ONE (23:47)
--- NOTE | 2018-05-20 02:02 | ER Document Report ---
ED General - General Chief Complaint: Nausea/Vomiting Stated Complaint: VOMITING/ABDOMINAL PAIN Time Seen by Provider: 05/19/18 23:45 Mode of Arrival: Ambulatory TRAVEL OUTSIDE OF THE [place] IN LAST 30 DAYS: No - HPI Notes: Patient is a 22-year-old female with a history of migraines who presents to the ED complaining of headache, light sensitivity, nausea, vomiting, right lower quadrant abdominal pain that began this evening. Patient states that her headache feels like her previous migraine that she has had, but has not been improving with her conservative measures. Patient states that the pain in the right lower quadrant does not radiate. Patient states that she has been eating and drinking normally until just after dinnertime. She is urinating normally and having normal sugars, odor, bleeding. Patient states that she is currently being treated for a fungal infection as well as a bacterial infection to her C- section area, and is being managed by the [facility] clinic. Denies any drug allergies, smoking, IV drug use. Denies any headache, fever, neck pain, URI, sore throat, chest pain, palpitations, syncope, cough, shortness of breath, wheeze, dyspnea, diarrhea, urinary retention, dysuria, hematuria, back pain, loss of control of bowel or bladder, numbness/tingling, saddle anesthesia, muscle paralysis/weakness. - Related Data Allergies/Adverse Reactions: No Known Allergies Allergy (Verified 01/28/18 14:55) Past Medical History - General Information source: Patient - Social History Smoking Status: Never Smoker Family History: CAD, CVA, DM, Hypertension, Other - Migraines Patient has suicidal ideation: No Patient has homicidal ideation: No Renal/ Medical History: Reports: Hx Ovarian Cysts. Denies: Hx Peritoneal Dialysis Skin Medical History: Reports Hx Psoriasis Psychiatric Medical History: Reports: Hx Depression Past Surgical History: Reports: Hx Section - 01/31/2017, Hx Oral Surgery - ear surg x3, wisdom teeth, Other - Ears; cholesteatoma removal - Immunizations Hx Diphtheria, Pertussis, Tetanus Vaccination: Yes Review of Systems - Review of Systems -: Yes All other systems reviewed and negative Physical Exam - Vital signs Vitals: Temp Pulse Resp BP Pulse Ox 97.9 F 81 18 117/68 99 05/19/18 22:54 05/19/18 22:54 05/19/18 22:54 05/19/18 22:54 05/19/18 22:54 - Notes Notes: PHYSICAL EXAMINATION: GENERAL: Well-appearing, well-nourished and in no acute distress. HEAD: Atraumatic, normocephalic. EYES: Pupils equal round and reactive to light, extraocular movements intact, sclera anicteric, conjunctiva are normal. ENT: Nares patent and without discharge. oropharynx clear without exudates. No tonsilar hypertrophy or erythema. Moist mucous membranes. NECK: Normal range of motion, supple without lymphadenopathy LUNGS: Breath sounds clear to auscultation bilaterally and equal. No wheezes rales or rhonchi. HEART: Regular rate and rhythm without murmurs, rubs, gallops. ABDOMEN: Soft, nondistended abdomen. No guarding, no rebound. Normal bowel sounds present. No CVA tenderness bilaterally. + tenderness to the RLQ. Diaz neg. : deferred Musculoskeletal: FROM to passive/active. Strength 5+/5. Extremities: No cyanosis, clubbing, or edema b/l. Peripheral pulses 2+. Capillary refill less than 3 seconds. NEUROLOGICAL: Normal speech, normal gait. PSYCH: Normal mood, normal affect. SKIN: + tinea cruris noted to the lower abd with mild erythema and small openings in the incision. No obvious purulence noted. Course - Re-evaluation Re-evalutation: 05/20/18 04:13 Pt is having RLQ tenderness with borderline abnormal appendix on CT and leukocytosis. Last NPO for liquids was 2100 last evening and 1800 for solid food intake. Spoke with Dr. Lozoya who will eval the patient. 05/20/18 04:53 Patient is an afebrile, well-hydrated, 22-year-old female who presents to the ED with acute appendicitis. Vitals are acceptable. PE consistent with history suggestive of appendicitis. Dr. Lozoya evaluated the patient and accepted patient for admission. - Vital Signs Vital signs: Temp Pulse Resp BP Pulse Ox 97.9 F 81 18 117/68 99 05/19/18 22:54 05/19/18 22:54 05/19/18 22:54 05/19/18 22:54 05/19/18 22:54 - Laboratory Result Diagrams: 05/20/18 01:18 05/20/18 02:18 Laboratory results interpreted by me: 05/20/18 05/20/18 01:18 02:05 WBC 12.7 H MCV 75 L MCH 24.0 L RDW 16.2 H Seg Neutrophils % 82.4 H Lymphocytes % 12.6 L Absolute Neutrophils 10.5 H Urine Blood SMALL H Ur Leukocyte Esterase SMALL H Discharge - Discharge Clinical Impression: Acute appendicitis Qualifiers: Acute appendicitis type: unspecified acute appendicitis type Qualified Code(s) : K35.80 - Unspecified acute appendicitis Condition: Stable Disposition: ADMITTED INPATIENT Admitting Provider: Surgicalist - Dr. Lozoya Unit Admitted: Surgical Floor Referrals: JACQUIE BRADY MD [Primary Care Provider] - Follow up as needed
[2018-05-20 02:05] LABS: ABSOLUTE EOSINOPHILS # (AUTO) 0.1 10^3/uL (0.0-0.6); ABSOLUTE LYMPHOCYTES (AUTO) 1.6 10^3/uL (0.5-4.7); ABSOLUTE MONOCYTES (AUTO) 0.5 10^3/uL (0.1-1.4); ABSOLUTE NEUT (AUTO) 10.5 10^3/uL (1.7-8.2); BASOPHILS % (AUTO) 0.2 % (0-2); EOSINOPHILS % (AUTO) 0.6 % (0-6); HEMOGLOBIN 12.2 g/dL (12.0-15.5); LYMPHOCYTES % (AUTO) 12.6 % (13-45); MEAN CORPUSCULAR HGB CONC 32.1 g/dL (32.0-36.0); MEAN CORPUSCULAR VOLUME 75 fl (80-97); MONOCYTES % (AUTO) 4.2 % (3-13); PLATELET COUNT 255 10^3/uL (150-450); RED BLOOD COUNT 5.09 10^6/uL (3.72-5.28); RED CELL DISTRIBUTION WIDTH 16.2 % (11.5-14.0); SEGMENTED NEUTROPHILS % (AUTO) 82.4 % (42-78); TOTAL CELLS COUNTED % (AUTO) 100 %; WHITE BLOOD COUNT 12.7 10^3/uL (4.0-10.5)
[2018-05-20 02:32] LABS: APPEARANCE,URINE CLOUDY; BILIRUBIN,URINE NEGATIVE (NEGATIVE); COLOR,URINE YELLOW; GLUCOSE, URINE NEGATIVE (NEGATIVE); KETONES,URINE NEGATIVE (NEGATIVE); LEUKOCYTE ESTERASE,URINE SMALL (NEGATIVE); NITRITE,URINE NEGATIVE (NEGATIVE); PROTEIN,URINE NEGATIVE (NEGATIVE); URINE SPECIFIC GRAVITY 1.017; UROBILINOGEN,URINE NEGATIVE mg/dL (<2.0)
[2018-05-20 02:46] LABS: ALANINE AMINOTRANSFERASE 28 U/L (9-52); ALBUMIN 3.8 g/dL (3.5-5.0); ALKALINE PHOSPHATASE 100 U/L (38-126); ANION GAP 7 (5-19); ASPARTATE AMINO TRANSFERASE 22 U/L (14-36); BILIRUBIN,DIRECT 0.3 mg/dL (0.0-0.4); BILIRUBIN,TOTAL 0.6 mg/dL (0.2-1.3); BLOOD UREA NITROGEN 10 mg/dL (7-20); CALCIUM 9.3 mg/dL (8.4-10.2); CARBON DIOXIDE 27 mmol/L (22-30); CHLORIDE 104 mmol/L (98-107); GLUCOSE 103 mg/dL (75-110); POTASSIUM 4.3 mmol/L (3.6-5.0); SODIUM 138.4 mmol/L (137-145); TOTAL PROTEIN 7.3 g/dL (6.3-8.2)
--- NOTE | 2018-05-20 03:22 | RADIOLOGY REPORT (SQ) ---
CT abdomen and pelvis with contrast on 05/20/2018 at 2:50 AM CLINICAL INDICATION: Right lower quadrant pain, nausea and vomiting TECHNIQUE: Multiple axial images are obtained throughout the abdomen and pelvis following the administration of IV contrast, 100 mL of Omnipaque 350 contrast was administered intravenously without complication. This exam was performed according to our departmental dose-optimization program, which includes automated exposure control, adjustment of the mA and/or kV according to patient size and/or use of iterative reconstruction technique. Total DLP is 3110.64 mGy*cm. COMPARISON: None FINDINGS: Abdomen: The lung bases are clear. The solid abdominal organs are unremarkable. There is no abdominal adenopathy. There is no free fluid or free air within the abdomen. The abdominal portion of the GI tract is unremarkable. Pelvis: Small appendicolith is noted within the appendix. Mid aspect of the appendix is mildly prominent measuring up to 8 mm. No definite periappendiceal fat stranding is noted. Pelvic portion of the GI tract is otherwise unremarkable. Possible section scar is noted in the anterior pelvic subcutaneous tissues. Pelvic organs appear unremarkable by CT. There is no free fluid in the pelvis. There is no pelvic adenopathy. There is dextroscoliosis of the lower thoracic spine. IMPRESSION: 1. Borderline abnormal appearance of the appendix, would be difficult to exclude very early acute appendicitis however definitive evidence of appendicitis is not identified either. If surgery is not initially considered, a short-term follow-up CT with IV and oral contrast may be useful. Recommend at least clinical follow-up. 2. Otherwise no acute abnormality.
[2018-05-20] MEDS ORDERED: NORMAL SALINE 1000 ML 1,000 ML IV ONE (04:14)
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
[2018-05-20] MEDS ORDERED: AMPICILLIN SODIUM/SULBACTAM NA 3 GM in NORMAL SALINE 100 ML IV ONE (05:20)
[2018-05-20] MEDS ORDERED: FENTANYL CITRATE INJ/PF 100 MCG/2 ML AMPUL ONE (05:27)
[2018-05-20] MEDS ORDERED: DEXAMETHASONE SOD PHOSPHATE INJ 4 MG/1 ML VIAL ONE (05:27)
[2018-05-20] MEDS ORDERED: MIDAZOLAM 2 MG/2 ML INJ ONE (05:27)
[2018-05-20] MEDS ORDERED: ONDANSETRON HCL INJ/PF 4 MG/2 ML SDV ONE (05:27)
[2018-05-20] MEDS ORDERED: MORPHINE SULFATE 10 MG/ML INJ ONE (05:28)
[2018-05-20] MEDS ORDERED: ACETAMINOPHEN 1,000 MG/100 ML RTUPB IV ONE (05:28)
[2018-05-20] MEDS ORDERED: PROPOFOL INJ 200 MG/20 ML VIAL IV ONE (05:28)
[2018-05-20] MEDS ORDERED: BUPIVACAINE HCL 0.5 % INJ/PF 30 ML SDV ONE (05:37)
[2018-05-20] MEDS ORDERED: AMPICILLIN SOD/SULBACTAM 3 GM VIAL ONE (06:01)
[2018-05-20] MEDS ORDERED: DIPHENHYDRAMINE HCL 50 MG/ML VIAL IV PRN (06:36)
[2018-05-20] MEDS ORDERED: FENTANYL CITRATE INJ/PF 100 MCG/2 ML AMPUL IV PRN ×3 (06:36)
[2018-05-20] MEDS ORDERED: PROMETHAZINE HCL INJ 25 MG/1 ML VIAL IV PRN ×2 (06:36)
[2018-05-20] MEDS ORDERED: MORPHINE SULFATE 10 MG/ML INJ IV PRN (06:36)
[2018-05-20] MEDS ORDERED: MEPERIDINE HCL/PF INJ 25 MG/1 ML DISP.SYRIN IV PRN (06:36)
--- NOTE | 2018-05-20 07:33 | Operative Report ---
Operative Report DATE OF SURGERY: 05/20/18 PREOPERATIVE DIAGNOSIS: 1. Acute appendicitis. 2. Pfannenstiel surgical site infection secondary to candidiasis POSTOPERATIVE DIAGNOSIS: Same with intraoperative adhesions OPERATION: 1. Laparoscopic appendectomy. 2. Laparoscopic lysis of adhesions. 3. debridement of Pfannenstiel surgical site chronic wound SURGEON: CAROLEE WALDROP ANESTHESIA: GA TISSUE REMOVED OR ALTERED: 1 appendix; nonviable tissue Pfannenstiel incision COMPLICATIONS: None ESTIMATED BLOOD LOSS: Scant INTRAOPERATIVE FINDINGS: See below PROCEDURE: Patient was taken to the preop holding area the main operating room and general anesthesia was induced. Smith catheter was inserted. Clear urine drained. The abdomen was exposed. Surgical plan and surgical timeout were conducted. The patient has a chronic draining Pfannenstiel wound. We began wiping the tissue, and the central aspect of the Pfannenstiel incision broke open, revealing a 3 x 8 cm x 5 cm deep chronic wound. It was mopped out with 4 x 4's , bled briskly, and packed with 4 x 4's. We now prepped the abdomen separate from the chronic candidiasis of intertriginous zones and a Pfannenstiel incision. We then draped the patient. Again repeat timeout conducted. Skin was Kasey times for 3 port laparoscopy in the supraumbilical position, left lower quadrant and suprapubic position. A supraumbilical vertical incision was made with a knife, Veress needle inserted the peritoneal cavity pneumoperitoneum was established with carbon dioxide. Veress needle removed, 5 mm ports inserted. A left lower quadrant 12 mm port was inserted under direct visualization. There were dense adhesions between the omentum and the anterior abdominal wall and these were taken down with the LigaSure device uneventfully without significant bleeding. There was no evidence of visceral adhesion to the anterior abdominal wall. We now called our attention to the suprapubic area. A third port, 5 mm, was inserted in the suprapubic region under direct visualization. We now told to the patient right side up left side down, and Trendelenburg. The appendix was brought into the free peritoneal space. It appeared to be consistent with acute appendicitis, early. Photos taken. The appendix was moderately edematous and erythematous. There was no evidence of perforation or phlegmon or purulent fluid. The mesoappendix was taken down with the LigaSure device. We now the appendix suspended from its base. It was ligated proximally with a 0 PDS Endoloop, and the appendix distally was secured with a Vicryl suture. We now amputated the appendix with the LigaSure device. The appendix was removed from the patient through the 12 mm port left lower quadrant port the specimen was sent to pathology for permanent analysis We returned the peritoneal cavity checked for bleeding there was none. We checked the uterus, right tube and ovary, left tube and ovary and they all appear to be normal. We felt the operation was normal. The patient was placed in the supine position , pneumoperitoneum evacuated, and orts removed. Wounds closed with 3-0 Vicryl. Benzoin and OpSite dressings applied. 4 x 4's left in the open Pfannenstiel incision. Patient taught procedure well, extubated, taken recovery in stable condition.
[2018-05-20] MEDS ORDERED: ONDANSETRON HCL INJ/PF 4 MG/2 ML SDV IV PRN (07:34)
[2018-05-20] MEDS ORDERED: FLUCONAZOLE 400 MG/NS RTU 400 MG/200 ML RTUPB IV ONE ×2 (08:47→10:00)
[2018-05-20] MEDS: KETOROLAC TROMETHAMINE INJ/PF 30 MG/1 ML SDV IV PRN ×3 (09:00→21:22)
[2018-05-20] MEDS: MULTIVITAMIN TABLET PO SCH (10:10)
[2018-05-20] MEDS: DOCUSATE SODIUM 100 MG CAPSULE PO SCH ×2 (10:10→17:59)
[2018-05-20] MEDS: NYSTATIN CREAM 15 GM TP SCH ×2 (10:11→18:03)
[2018-05-20] MEDS ORDERED: ROCURONIUM BROMIDE INJ 50 MG/5 ML VIAL IV ONE (11:03)
[2018-05-20] MEDS ORDERED: SUCCINYLCHOLINE CHLORIDE INJ 200 MG/10 ML VIAL ONE (11:03)
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
[2018-05-20] MEDS ORDERED: AMPICILLIN SOD/SULBACTAM 3 GM VIAL IV SCH (18:00)
[2018-05-20] MEDS: AMPICILLIN SODIUM/SULBACTAM NA 3 GM in NORMAL SALINE 100 ML IV SCH (19:17)
[2018-05-21] MEDS: AMPICILLIN SODIUM/SULBACTAM NA 3 GM in NORMAL SALINE 100 ML IV SCH ×4 (00:27→18:22)
[2018-05-21] MEDS: KETOROLAC TROMETHAMINE INJ/PF 30 MG/1 ML SDV IV PRN (03:43)
[2018-05-21 06:56] LABS: ABSOLUTE LYMPHOCYTES (AUTO) 2.1 10^3/uL (0.5-4.7); ABSOLUTE MONOCYTES (AUTO) 0.6 10^3/uL (0.1-1.4); ABSOLUTE NEUT (AUTO) 6.7 10^3/uL (1.7-8.2); BASOPHILS % (AUTO) 0.2 % (0-2); EOSINOPHILS % (AUTO) 0.2 % (0-6); HEMATOCRIT 35.5 % (36.0-47.0); HEMOGLOBIN 11.2 g/dL (12.0-15.5); LYMPHOCYTES % (AUTO) 22.1 % (13-45); MEAN CORPUSCULAR HEMOGLOBIN 23.7 pg (27.0-33.4); MEAN CORPUSCULAR HGB CONC 31.5 g/dL (32.0-36.0); MEAN CORPUSCULAR VOLUME 75 fl (80-97); MONOCYTES % (AUTO) 6.1 % (3-13); PLATELET COUNT 218 10^3/uL (150-450); RED BLOOD COUNT 4.71 10^6/uL (3.72-5.28); RED CELL DISTRIBUTION WIDTH 16.5 % (11.5-14.0); SEGMENTED NEUTROPHILS % (AUTO) 71.4 % (42-78); TOTAL CELLS COUNTED % (AUTO) 100 %; WHITE BLOOD COUNT 9.4 10^3/uL (4.0-10.5)
--- NOTE | 2018-05-21 10:06 | PDOC PROGRESS REPORT ---
Subjective Progress Note for:: 05/21/18 Subjective:: No c/o, diet tolerated Reason For Visit: ACUTE APPENDICITIS Physical Exam Vital Signs: Temp Pulse Resp BP Pulse Ox 97.5 F 76 18 119/63 97 05/21/18 08:51 05/21/18 08:51 05/21/18 08:51 05/21/18 08:51 05/21/18 08:58 Intake & Output 05/20/18 05/21/18 05/22/18 06:59 06:59 06:59 Intake Total 1000 2400 Output Total 2245 Balance 1000 155 Weight 115 kg General appearance: PRESENT: no acute distress GI/Abdominal exam: PRESENT: soft, tenderness - at surgical incision sites;, other - wounds C/D/I Skin exam: PRESENT: other - inframammary skin and lower abdominal skin fold with redness Results Laboratory Results: 05/21/18 06:24 05/21/18 06:24 WBC 9.4 RBC 4.71 Hgb 11.2 L Hct 35.5 L MCV 75 L MCH 23.7 L MCHC 31.5 L RDW 16.5 H Plt Count 218 Seg Neutrophils % 71.4 Lymphocytes % 22.1 Monocytes % 6.1 Eosinophils % 0.2 Basophils % 0.2 Absolute Neutrophils 6.7 Absolute Lymphocytes 2.1 Absolute Monocytes 0.6 Absolute Eosinophils 0.0 Absolute Basophils 0.0 Impressions: Abdomen/Pelvis CT 05/20/18 01:53 IMPRESSION: 1. Borderline abnormal appearance of the appendix, would be difficult to exclude very early acute appendicitis however definitive evidence of appendicitis is not identified either. If surgery is not initially considered, a short-term follow-up CT with IV and oral contrast may be useful. Recommend at least clinical follow-up. 2. Otherwise no acute abnormality. Assessment & Plan - Diagnosis (1) Acute appendicitis Qualifiers: Acute appendicitis type: with localized peritonitis Qualified Code(s): K35.3 - Acute appendicitis with localized peritonitis Is this a current diagnosis for this admission?: Yes (2) Candidiasis Is this a current diagnosis for this admission?: Yes - Plan Summary Plan Summary: A/ POD#1 after laparoscopic appendectomy VSS, AF WBC normal Abdomen soft, surgical wound healing Inframammary skin and kower abdominal pannus skin erythema improving after Diflucan IV and topical Nystatin P/ Continue IV and topical antifungal Continue Unasyn Possible discharge tomorrow WoundVac to be changed tomorrow or before discharge Dulcolax
[2018-05-21] MEDS: MULTIVITAMIN TABLET PO SCH (10:21)
[2018-05-21] MEDS: DOCUSATE SODIUM 100 MG CAPSULE PO SCH ×2 (10:21→18:26)
[2018-05-21] MEDS: FLUCONAZOLE 200 MG/NS RTU 200 MG/100 ML RTUPB IV SCH (10:23)
[2018-05-21] MEDS ORDERED: BISACODYL 5 MG TABEC PO ONE (10:30)
[2018-05-21] MEDS: NYSTATIN CREAM 15 GM TP SCH (10:31)
[2018-05-21] MEDS: KETOROLAC TROMETHAMINE 10 MG TABLET PO PRN ×2 (10:34→15:58)
[2018-05-21] MEDS ORDERED: METRONIDAZOLE 500 MG/NS RTU 500 MG/100 ML RTUPB IV ONE (18:00)
[2018-05-21] MEDS: ACETAMINOPHEN 325 MG TABLET PO PRN (22:23)
[2018-05-21] MEDS ORDERED: KETOROLAC TROMETHAMINE 10 MG TABLET ONE (22:33)
[2018-05-22] MEDS: AMPICILLIN SODIUM/SULBACTAM NA 3 GM in NORMAL SALINE 100 ML IV SCH ×5 (00:23→23:57)
[2018-05-22] MEDS: KETOROLAC TROMETHAMINE 10 MG TABLET PO PRN (00:23)
[2018-05-22 05:47] LABS: ABSOLUTE EOSINOPHILS # (AUTO) 0.3 10^3/uL (0.0-0.6); ABSOLUTE LYMPHOCYTES (AUTO) 2.8 10^3/uL (0.5-4.7); ABSOLUTE MONOCYTES (AUTO) 0.6 10^3/uL (0.1-1.4); ABSOLUTE NEUT (AUTO) 3.5 10^3/uL (1.7-8.2); BASOPHILS % (AUTO) 0.4 % (0-2); EOSINOPHILS % (AUTO) 3.9 % (0-6); HEMATOCRIT 33.6 % (36.0-47.0); HEMOGLOBIN 10.8 g/dL (12.0-15.5); LYMPHOCYTES % (AUTO) 38.5 % (13-45); MEAN CORPUSCULAR HEMOGLOBIN 24.2 pg (27.0-33.4); MEAN CORPUSCULAR HGB CONC 32.3 g/dL (32.0-36.0); MEAN CORPUSCULAR VOLUME 75 fl (80-97); MONOCYTES % (AUTO) 8.2 % (3-13); PLATELET COUNT 196 10^3/uL (150-450); RED BLOOD COUNT 4.48 10^6/uL (3.72-5.28); RED CELL DISTRIBUTION WIDTH 16.4 % (11.5-14.0); TOTAL CELLS COUNTED % (AUTO) 100 %; WHITE BLOOD COUNT 7.1 10^3/uL (4.0-10.5)
[2018-05-22] MEDS: ACETAMINOPHEN 325 MG TABLET PO PRN ×2 (06:08→23:56)
--- NOTE | 2018-05-22 11:38 | PDOC PROGRESS REPORT ---
Subjective Progress Note for:: 05/22/18 Subjective:: Feels well. Reason For Visit: ACUTE APPENDICITIS Physical Exam Vital Signs: Temp Pulse Resp BP Pulse Ox 98.2 F 64 16 123/77 99 05/22/18 08:55 05/22/18 08:55 05/21/18 21:52 05/22/18 08:55 05/22/18 08:55 Intake & Output 05/21/18 05/22/18 05/23/18 06:59 06:59 06:59 Intake Total 2500 2950 Output Total 2245 25 Balance 255 2925 Weight 115 kg 115 kg General appearance: PRESENT: no acute distress, cooperative Respiratory exam: PRESENT: clear to auscultation reji Cardiovascular exam: PRESENT: RRR GI/Abdominal exam: PRESENT: other - Soft, nondistended, minimal tenderness. Wound VAC in place over midportion of her Pfannenstiel incision. Still with extensive erythema of bilateral groin. Results Laboratory Results: 05/22/18 04:43 05/22/18 04:43 WBC 7.1 RBC 4.48 Hgb 10.8 L Hct 33.6 L MCV 75 L MCH 24.2 L MCHC 32.3 RDW 16.4 H Plt Count 196 Seg Neutrophils % 49.0 Lymphocytes % 38.5 Monocytes % 8.2 Eosinophils % 3.9 Basophils % 0.4 Absolute Neutrophils 3.5 Absolute Lymphocytes 2.8 Absolute Monocytes 0.6 Absolute Eosinophils 0.3 Absolute Basophils 0.0 Impressions: Abdomen/Pelvis CT 05/20/18 01:53 IMPRESSION: 1. Borderline abnormal appearance of the appendix, would be difficult to exclude very early acute appendicitis however definitive evidence of appendicitis is not identified either. If surgery is not initially considered, a short-term follow-up CT with IV and oral contrast may be useful. Recommend at least clinical follow-up. 2. Otherwise no acute abnormality. Assessment & Plan - Diagnosis (1) Acute appendicitis Qualifiers: Acute appendicitis type: with localized peritonitis Qualified Code(s): K35.3 - Acute appendicitis with localized peritonitis Is this a current diagnosis for this admission?: Yes Plan: Status post laparoscopic appendectomy. Doing very well in this regard. (2) Surgical site infection Qualifiers: Encounter type: subsequent encounter Qualified Code(s): T81.4XXD - Infection following a procedure, subsequent encounter Is this a current diagnosis for this admission?: Yes Plan: Surgical site infection at her prior Pfannenstiel incision which was debrided at the same time as her laparoscopic appendectomy. Currently being managed with a wound VAC. But she still has significant Lilian infection. Continue IV Diflucan. According to the patient the erythema has improved during her hospital stay. When this infectious process is under better control will plan to discharge patient home with p.o. Diflucan.
[2018-05-22] MEDS: NYSTATIN CREAM 15 GM TP SCH ×2 (11:48→11:57)
[2018-05-22] MEDS: MULTIVITAMIN TABLET PO SCH (11:56)
[2018-05-22] MEDS: FLUCONAZOLE 200 MG/NS RTU 200 MG/100 ML RTUPB IV SCH (11:56)
[2018-05-22] MEDS: DOCUSATE SODIUM 100 MG CAPSULE PO SCH ×2 (11:57→18:18)
[2018-05-22] MEDS ORDERED: NAPROXEN 250 MG TABLET PO PRN (13:14)
[2018-05-22] MEDS ORDERED: ONDANSETRON HCL INJ/PF 4 MG/2 ML SDV IV PRN (15:30)
[2018-05-22] MEDS ORDERED: MORPHINE SULFATE 10 MG/ML INJ ONE (15:52)
[2018-05-22] MEDS ORDERED: HYDROMORPHONE HCL INJ/PF 2 MG/ML AMPULE ONE (16:04)
[2018-05-22] MEDS ORDERED: MORPHINE SULFATE 10 MG/ML INJ IV ONE (16:15)
[2018-05-22] MEDS ORDERED: HYDROMORPHONE HCL INJ/PF 2 MG/ML AMPULE IV ONE (16:15)
[2018-05-22] MEDS ORDERED: SERTRALINE HCL 50 MG TABLET PO SCH (22:00)
[2018-05-23] MEDS: AMPICILLIN SODIUM/SULBACTAM NA 3 GM in NORMAL SALINE 100 ML IV SCH ×2 (06:07→12:54)
[2018-05-23 07:37] LABS: ABSOLUTE EOSINOPHILS # (AUTO) 0.4 10^3/uL (0.0-0.6); ABSOLUTE LYMPHOCYTES (AUTO) 2.3 10^3/uL (0.5-4.7); ABSOLUTE MONOCYTES (AUTO) 0.5 10^3/uL (0.1-1.4); ABSOLUTE NEUT (AUTO) 3.9 10^3/uL (1.7-8.2); BASOPHILS % (AUTO) 0.6 % (0-2); EOSINOPHILS % (AUTO) 6.2 % (0-6); LYMPHOCYTES % (AUTO) 31.6 % (13-45); MEAN CORPUSCULAR HEMOGLOBIN 23.9 pg (27.0-33.4); MEAN CORPUSCULAR HGB CONC 32.3 g/dL (32.0-36.0); MEAN CORPUSCULAR VOLUME 74 fl (80-97); MONOCYTES % (AUTO) 7.3 % (3-13); PLATELET COUNT 202 10^3/uL (150-450); RED BLOOD COUNT 4.61 10^6/uL (3.72-5.28); SEGMENTED NEUTROPHILS % (AUTO) 54.3 % (42-78); TOTAL CELLS COUNTED % (AUTO) 100 %; WHITE BLOOD COUNT 7.2 10^3/uL (4.0-10.5)
[2018-05-23] MEDS ORDERED: FLUCONAZOLE 100 MG TABLET PO SCH (10:30)
[2018-05-23] MEDS: NYSTATIN CREAM 15 GM TP SCH ×2 (11:00→11:01)
[2018-05-23] MEDS: MULTIVITAMIN TABLET PO SCH (11:02)
[2018-05-23] MEDS: DOCUSATE SODIUM 100 MG CAPSULE PO SCH (11:05)
[2018-05-23] MEDS: ACETAMINOPHEN 325 MG TABLET PO PRN (12:59)
[2018-05-23 19:39] VITALS: BP 145/94
--- NOTE | 2018-05-29 10:56 | DISCHARGE SUMMARY E ---
Discharge Summary NAME: MAI DIAZ : 1995 AGE: 22Y ADMITTED: 05/20/2018 DISCHARGED: 05/23/2018 REASON FOR ADMISSION: Acute abdominal pain. SUMMARY OF HOSPITALIZATION: The patient is a 22-year-old obese female with a history of Lilian infection involving the intertriginous zones and a Pfannenstiel incision from a in February. She presented to the Emergency Department complaining of acute onset abdominal pain. She was evaluated in the Emergency Department where she was found to have evidence of acute appendicitis by CT scanning. Surgery was consulted and patient was advised admission. The patient was taken to the operating room by Dr. Lozoya on 05/20/2018 where she underwent laparoscopic appendectomy and debridement of abdominal wall Pfannenstiel incision site. The patient tolerated the operation well. She was started on dressing changes and then a wound VAC. By the fourth hospital day she was tolerating a diet, had adequate pain control, and was felt to be ready for discharge home. FINAL DIAGNOSES: 1. Acute appendicitis, status post laparoscopic appendectomy. 2. 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 DISPOSITION: The patient was discharged home in the care of her family. Follow up with [facility] in approximately 1 week for Pfannenstiel wound management; this will consist of wet-to-dry dressings at this time. Patient will follow up with [facility] in approximately 1 week. She will take [id number] pain medication as needed. DICTATING PHYSICIAN: CAROLEE LOZOYA M.D. [id number] Y#: [id number] ID: [id number] JOB#: [id number] ACCT: [id number] cc:Michael MELO M.D. [facility],
== END 2018-05-23 19:50 | disposition home health service (06) ==
LOC: ER 22:15 → EH 05-20 05:01 → INTOOBSV 05-20 05:01 → 2N 05-20 08:25
PROVIDERS: ATTEND Surgery
PROC: 0WBFXZZ Excision of Abdominal Wall, External Approach (ICD-10-PCS; 2018-05-20)
PROC: 0DTJ4ZZ Resection of Appendix, Percutaneous Endoscopic Approach (ICD-10-PCS; principal; 2018-05-20 06:00)
DX: K35.80 Unspecified acute appendicitis (principal); O86.0 Infection of obstetric surgical wound; B37.89 Other sites of candidiasis; B35.6 Tinea cruris; R51 Headache; H53.149 Visual discomfort, unspecified; F41.9 Anxiety disorder, unspecified; E66.9 Obesity, unspecified; Z79.899 Other long term (current) drug therapy; Z82.49 Family history of ischemic heart disease and other diseases of the circulatory system; Z68.42 Body mass index [BMI] 45.0-49.9, adult; Z82.0 Family history of epilepsy and other diseases of the nervous system
CPT/HCPCS: 36415; 74177; 80053; 81001; 81025; 840; 85025; 88304; 96361; 96374; 96375; 99285; G0378; J0131; J0295; J0330; J0780; J1100; J1170; J1450; J1885; J2250; J2270; J2405; J2704; J3010; J3490

== ENCOUNTER → 2018-08-15 | Outpatient (CLI) | payer MEDICAID ==
[2018-08-15 10:44] LABS: ABSOLUTE EOSINOPHILS # (AUTO) 0.2 10^3/uL (0.0-0.6); ABSOLUTE LYMPHOCYTES (AUTO) 2.3 10^3/uL (0.5-4.7); ABSOLUTE MONOCYTES (AUTO) 0.5 10^3/uL (0.1-1.4); ABSOLUTE NEUT (AUTO) 3.9 10^3/uL (1.7-8.2); BASOPHILS % (AUTO) 0.7 % (0-2); EOSINOPHILS % (AUTO) 2.8 % (0-6); HEMATOCRIT 39.1 % (36.0-47.0); HEMOGLOBIN 12.6 g/dL (12.0-15.5); LYMPHOCYTES % (AUTO) 32.8 % (13-45); MEAN CORPUSCULAR HEMOGLOBIN 24.1 pg (27.0-33.4); MEAN CORPUSCULAR HGB CONC 32.3 g/dL (32.0-36.0); MEAN CORPUSCULAR VOLUME 75 fl (80-97); MONOCYTES % (AUTO) 7.8 % (3-13); PLATELET COUNT 235 10^3/uL (150-450); RED BLOOD COUNT 5.23 10^6/uL (3.72-5.28); RED CELL DISTRIBUTION WIDTH 17.9 % (11.5-14.0); SEGMENTED NEUTROPHILS % (AUTO) 55.9 % (42-78); TOTAL CELLS COUNTED % (AUTO) 100 %
[2018-08-15 11:14] LABS: ALANINE AMINOTRANSFERASE 20 U/L (9-52); ALBUMIN 4.3 g/dL (3.5-5.0); ALKALINE PHOSPHATASE 85 U/L (38-126); ANION GAP 8 (5-19); ASPARTATE AMINO TRANSFERASE 20 U/L (14-36); BILIRUBIN,DIRECT 0.2 mg/dL (0.0-0.4); BLOOD UREA NITROGEN 9 mg/dL (7-20); C-REACTIVE PROTEIN 12.1 mg/L (<10.0); CALCIUM 9.6 mg/dL (8.4-10.2); CARBON DIOXIDE 29 mmol/L (22-30); CHLORIDE 104 mmol/L (98-107); GLUCOSE 96 mg/dL (75-110); POTASSIUM 4.1 mmol/L (3.6-5.0); SODIUM 140.8 mmol/L (137-145); TOTAL PROTEIN 7.8 g/dL (6.3-8.2)
[2018-08-15 11:23] LABS: ERYTHROCYTE SEDIMENTATION RATE 10 mm/hr (0-20)
== END ==
LOC: WC 10:16
PROVIDERS: ATTEND Surgery
DX: O90.0 Disruption of cesarean delivery wound (principal)
CPT/HCPCS: 36415; 80053; 85025; 85652; 86140

== ENCOUNTER → 2019-05-18 | Outpatient (CLI) | payer MEDICAID | LOC: OD 12:36 | PROVIDERS: ATTEND Otolaryngology | DX: J30.9 Allergic rhinitis, unspecified (principal) | CPT/HCPCS: 36415; 82785; 86003 ==